=== PATIENT | male | born 1965 | race Caucasian/White ===

== ENCOUNTER → 2016-11-07 | Outpatient (CLI) | payer OTHER ==
[2016-11-07 08:51] LABS: ABSOLUTE EOSINOPHILS # (AUTO) 0.1 10^3/uL (0.0-0.6); ABSOLUTE LYMPHOCYTES (AUTO) 1.8 10^3/uL (0.5-4.7); ABSOLUTE MONOCYTES (AUTO) 0.5 10^3/uL (0.1-1.4); ABSOLUTE NEUT (AUTO) 4.1 10^3/uL (1.7-8.2); BASOPHILS % (AUTO) 0.7 % (0-2); HEMATOCRIT 44.7 % (37.9-51.0); HEMOGLOBIN 15.5 g/dL (13.5-17.0); HGB HCT DIFFERENCE 1.8; LYMPHOCYTES % (AUTO) 26.9 % (13-45); MEAN CORPUSCULAR HEMOGLOBIN 35.2 pg (27.0-33.4); MEAN CORPUSCULAR HGB CONC 34.6 g/dL (32.0-36.0); MEAN CORPUSCULAR VOLUME 102 fl (80-97); MONOCYTES % (AUTO) 7.6 % (3-13); RED CELL DISTRIBUTION WIDTH 12.8 % (11.5-14.0); SEGMENTED NEUTROPHILS % (AUTO) 62.8 % (42-78); WHITE BLOOD COUNT 6.5 10^3/uL (4.0-10.5)
[2016-11-07 09:15] LABS: ALANINE AMINOTRANSFERASE 127 U/L (21-72); ALBUMIN 4.5 g/dL (3.5-5.0); ALKALINE PHOSPHATASE 97 U/L (38-126); ANION GAP 15 (5-19); ASPARTATE AMINO TRANSFERASE 297 U/L (17-59); BILIRUBIN,DIRECT 0.2 mg/dL (0.0-0.4); BILIRUBIN,TOTAL 0.8 mg/dL (0.2-1.3); BLOOD UREA NITROGEN 9 mg/dL (7-20); CALCIUM 10.1 mg/dL (8.4-10.2); CARBON DIOXIDE 29 mmol/L (22-30); CHLORIDE 106 mmol/L (98-107); CHOLESTEROL 161.03 mg/dL (0-200); CREATININE RESULT 0.74 mg/dL (0.52-1.25); Direct HDL 77 mg/dL (>40); GLUCOSE 97 mg/dL (75-110); POTASSIUM 3.8 mmol/L (3.6-5.0); TOTAL PROTEIN 7.4 g/dL (6.3-8.2); TRIGLYCERIDES 101 mg/dL (<150)
[2016-11-07 09:26] LABS: DIRECT LDL 59 mg/dL (<100)
== END ==
LOC: CCC 07:30
DX: K85.90 Acute pancreatitis without necrosis or infection, unspecified (principal); M21.941 Unspecified acquired deformity of hand, right hand; M54.10 Radiculopathy, site unspecified
CPT/HCPCS: 36415; 80053; 80061; 80074; 83036; 84425; 85025

== ENCOUNTER → 2017-02-06 | Outpatient (CLI) | payer OTHER ==
--- NOTE | 2017-02-06 13:58 | RADIOLOGY REPORT (SQ) ---
EXAM DESCRIPTION: NM LIVER/SPLEEN SCAN COMPLETED DATE/TIME: 02/06/2017 11:29 am REASON FOR STUDY: FATTY CHANGE OF LIVER K76.0 FATTY (CHANGE OF) LIVER, NOT ELSEWHERE CLASSIFIED COMPARISON: None. RADIONUCLIDE AND DOSE: 5.39 millicuries Tc-99m Sulfur Colloid. The route of agent administration: Intravenous ADDITIONAL DRUGS AND DOSES: None. TECHNIQUE: Images of the upper abdomen acquired in multiple projections following radionuclide admin istration. LIMITATIONS: None. FINDINGS: Liver: Normal size. Homogeneous activity. No focal lesions. Spleen: Normal size. Homogeneous activity. No focal lesions. Other: No other significant findings. IMPRESSION: NORMAL LIVER SPLEEN SCAN. TECHNICAL DOCUMENTATION: JOB ID: [id number] [employer]- All Rights Reserved
== END ==
LOC: RAD 09:35
DX: K76.0 Fatty (change of) liver, not elsewhere classified (principal)
CPT/HCPCS: 78215; A9541

== ENCOUNTER 2017-09-30 07:56 | Emergency (ER) | payer OTHER ==
[2017-09-30] MEDS ORDERED: NORMAL SALINE 1000 ML 1,000 ML IV PRN (08:15)
[2017-09-30] MEDS ORDERED: ONDANSETRON HCL INJ/PF 4 MG/2 ML SDV IV ONE (08:15)
--- NOTE | 2017-09-30 08:18 | ER Document Report ---
ED GI/ - General Chief Complaint: Nausea/Vomiting Stated Complaint: VOMITING Time Seen by Provider: 09/30/17 08:12 Notes: The patient is a 52-year-old male, past medical history prior episode of alcoholic pancreatitis, presents with nausea, vomiting and upper abdominal pain for the past 4 days. He says that the pain is worse after he drinks alcohol. He is able to drink small sips of water, but will frequently vomit any food. He denies fevers, chest pain, shortness of breath, diarrhea, constipation or urinary symptoms. TRAVEL OUTSIDE OF THE [place] IN LAST 30 DAYS: No - Related Data Allergies/Adverse Reactions: No Known Allergies Allergy (Verified 09/30/17 08:00) Past Medical History - General Information source: Patient - Social History Smoking Status: Current Every Day Smoker Frequency of alcohol use: Heavy Family History: Reviewed & Not Pertinent, Arthritis - Immunizations Hx Diphtheria, Pertussis, Tetanus Vaccination: No Review of Systems - Review of Systems Notes: REVIEW OF SYSTEMS: CONSTITUTIONAL: -fevers, -chills EENT: -eye pain, -difficulty swallowing, -nasal congestion CARDIOVASCULAR: -chest pain, -syncope. RESPIRATORY: -cough, -SOB GASTROINTESTINAL: +upper abdominal pain, +nausea, +vomiting, -diarrhea GENITOURINARY: -dysuria, -hematuria MUSCULOSKELETAL: -back pain, -neck pain SKIN: -rash or skin lesions. HEMATOLOGIC: -easy bruising or bleeding. LYMPHATIC: -swollen, enlarged glands. NEUROLOGICAL: -altered mental status or loss of consciousness, -headache, - neurologic symptoms PSYCHIATRIC: -anxiety, -depression. ALL OTHER SYSTEMS REVIEWED AND NEGATIVE. Physical Exam - Vital signs Vitals: Temp Pulse Resp BP Pulse Ox 98.4 F 119 H 20 140/106 H 100 09/30/17 08:00 09/30/17 08:00 09/30/17 08:00 09/30/17 08:00 09/30/17 08:00 - Notes Notes: PHYSICAL EXAMINATION: GENERAL: Well-appearing, well-nourished and in no acute distress. HEAD: Atraumatic, normocephalic. EYES: Pupils equal round and reactive to light, extraocular movements intact, sclera anicteric, conjunctiva are normal. ENT: nares patent, oropharynx clear without exudates. Moist mucous membranes. NECK: Normal range of motion, supple without lymphadenopathy LUNGS: Breath sounds clear to auscultation bilaterally and equal. No wheezes rales or rhonchi. HEART: Tachycardia, regular rhythm ABDOMEN: Soft, mild RUQ and epigastric tenderness, normoactive bowel sounds. No guarding, no rebound. No masses appreciated. EXTREMITIES: Normal range of motion, no pitting or edema. No cyanosis. NEUROLOGICAL: Cranial nerves grossly intact. Normal speech, normal gait. Normal sensory and motor exams. PSYCH: Normal mood, normal affect. SKIN: Warm, Dry, normal turgor, no rashes or lesions noted. Course - Re-evaluation Re-evalutation: Concern for pancreatitis again with nausea, vomiting and epigastric abdominal pain. Since he is having right upper quadrant abdominal tenderness, will check an ultrasound of the liver and gallbladder. Suspect that his pancreatitis is once again related to his alcohol use and counseled him on trying to cut down. 09/30/17 10:18 Pt feels much better and able to tolerate fluids without any abdominal pain, nausea or vomiting. Blood work is remarkable for his elevated LFTs, consistent with his known alcohol and fatty liver. Lipase levels not consistent with pancreatitis. Right upper quadrant ultrasound does not show any evidence of gallstones or cholecystitis. Will send patient home with Carlos Morel and instructions to follow-up with his GI doctor. He will stay hydrated and return to the ER if he has any worsening symptoms. - Vital Signs Vital signs: Temp Pulse Resp BP Pulse Ox 98.4 F 119 H 20 140/106 H 100 09/30/17 08:00 09/30/17 08:00 09/30/17 08:00 09/30/17 08:00 09/30/17 08:00 - Laboratory Result Diagrams: 09/30/17 09:04 09/30/17 09:04 Laboratory results interpreted by me: 09/30/17 09/30/17 09:04 09:04 Hgb 17.1 H MCV 103 H MCH 35.9 H Lymphocytes % 12.4 L Potassium 3.4 L Chloride 94 L Carbon Dioxide 33 H Total Bilirubin 2.0 H Direct Bilirubin 0.8 H AST 118 H ALT 84 H Alkaline Phosphatase 173 H Creatine Kinase 29 L Lipase 307.2 H - Diagnostic Test Radiology reviewed: Image reviewed, Reports reviewed Radiology results interpreted by : RAMON US: NAD Discharge - Discharge Clinical Impression: Upper abdominal pain Nausea and vomiting Qualifiers: Vomiting type: unspecified Vomiting Intractability: non-intractable Qualified Code(s): R11.2 - Nausea with vomiting, unspecified Condition: Stable Disposition: HOME, SELF-CARE Additional Instructions: ABDOMINAL PAIN: There are many causes of abdominal pain. Pain can mean a serious problem requiring surgery (such as appendicitis). It can also be an innocent problem that goes away on its own (such as a viral infection). Often, time must pass to determine the cause of pain. The physician does not feel that hospitalization is necessary, at present. Things may change within the next 24 hours. Call the doctor or come back for re- examination if any problems occur, such as: (1) Pain that becomes more severe, steady, or becomes concentrated in one specific area. Also, pain that is more severe with movement or coughing. (2) Vomiting that persists or becomes more frequent. (3) Blood in the vomitus, urine, or bowel movements. Blood in the stool may have a tarry or black appearance. (4) Shaking chills or fever greater than 100 degrees F. (5) The abdomen becomes more distended or swollen. (6) Bowel movements cease. (7) Failure to improve as expected. NORMAL EXAM AND WORKUP: At this time, your examination and workup show no significant abnormality. No significant abnormal physical findings are noted. All laboratory, EKG, and imaging (x-ray, CT scans, ultrasound) studies that were ordered show no significant abnormality. Although your examination and all studies that were ordered showed no significant abnormal finding, there are no examinations and no studies that are 100% accurate. There is always the possibility that some abnormality could exist and not be detected with physical examination or within the limits and capabilities of laboratory and other studies. You should return or follow up as you were instructed on your visit today for further evaluation if your symptoms do not resolve. ANTINAUSEA MEDICATION: You have been given a medication to suppress nausea and vomiting. This type of medication can be given as a shot, pill, or suppository. It will usually last for many hours. Pills and shots usually last six to eight hours, suppositories last about 12 hours. For the typical illness, only one or two doses of the medication may be necessary. Mild lightheadedness may occur. This type of medicine can cause drowsiness. Do not drive or operate dangerous machinery while under its influence. Do not mix with alcohol. See your doctor at once if you have muscle spasms or tightness, or uncontrollable motions (particularly of the neck, mouth, or jaw). Persistent vomiting or severe lightheadedness should also be evaluated by the physician. FOLLOW-UP CARE: If you have been referred to a physician for follow-up care, call the physician s office for an appointment as you were instructed or within the next two days. If you experience worsening or a significant change in your symptoms, notify the physician immediately or return to the Emergency Department at any time for re-evaluation. Prescriptions: Omeprazole Magnesium [Prilosec Otc] 20 mg PO Q12H #14 tablet. Ondansetron [Zofran Odt 4 mg Tablet] 1 - 2 tab PO Q4H PRN #15 tab.rapdis PRN Reason: For Nausea/Vomiting Forms: Elevated Blood Pressure Referrals: MANNY AUGUSTE MD [ACTIVE STAFF] - Follow up as needed
[2017-09-30] MEDS ORDERED: KETOROLAC TROMETHAMINE INJ/PF 30 MG/1 ML SDV IV ONE (08:27)
[2017-09-30] MEDS ORDERED: HYDROMORPHONE HCL INJ/PF 2 MG/ML AMPULE IV ONE (08:27)
[2017-09-30] MEDS ORDERED: PANTOPRAZOLE SODIUM 40 MG VIAL IV ONE (08:27)
[2017-09-30] MEDS ORDERED: MORPHINE SULFATE 10 MG/ML INJ IV ONE (09:18)
[2017-09-30 09:33] LABS: ABSOLUTE EOSINOPHILS # (AUTO) 0.1 10^3/uL (0.0-0.6); ABSOLUTE LYMPHOCYTES (AUTO) 1.1 10^3/uL (0.5-4.7); ABSOLUTE NEUT (AUTO) 6.7 10^3/uL (1.7-8.2); BASOPHILS % (AUTO) 0.4 % (0-2); EOSINOPHILS % (AUTO) 1.4 % (0-6); HEMATOCRIT 48.8 % (37.9-51.0); HEMOGLOBIN 17.1 g/dL (13.5-17.0); LYMPHOCYTES % (AUTO) 12.4 % (13-45); MEAN CORPUSCULAR HEMOGLOBIN 35.9 pg (27.0-33.4); MEAN CORPUSCULAR VOLUME 103 fl (80-97); MONOCYTES % (AUTO) 11.3 % (3-13); RED BLOOD COUNT 4.76 10^6/uL (4.35-5.55); RED CELL DISTRIBUTION WIDTH 13.2 % (11.5-14.0); SEGMENTED NEUTROPHILS % (AUTO) 74.5 % (42-78); TOTAL CELLS COUNTED % (AUTO) 100 %
[2017-09-30 09:53] LABS: PLATELET COUNT 160 10^3/uL (150-450)
[2017-09-30 09:58] LABS: ALANINE AMINOTRANSFERASE 84 U/L (21-72); ALBUMIN 3.9 g/dL (3.5-5.0); ALKALINE PHOSPHATASE 173 U/L (38-126); ANION GAP 10 (5-19); ASPARTATE AMINO TRANSFERASE 118 U/L (17-59); BILIRUBIN,DIRECT 0.8 mg/dL (0.0-0.4); BLOOD UREA NITROGEN 12 mg/dL (7-20); CARBON DIOXIDE 33 mmol/L (22-30); CHLORIDE 94 mmol/L (98-107); CREATINE KINASE 29 U/L (55-170); GLUCOSE 100 mg/dL (75-110); LIPASE 307.2 U/L (23-300); POTASSIUM 3.4 mmol/L (3.6-5.0); SODIUM 137.4 mmol/L (137-145); TOTAL PROTEIN 7.3 g/dL (6.3-8.2)
[2017-09-30 10:03] LABS: ALCOHOL < 10 mg/dL (NONE DETECTED)
--- NOTE | 2017-09-30 10:06 | RADIOLOGY REPORT (SQ) ---
EXAM DESCRIPTION: U/S ABDOMEN LIMITED W/O DOP COMPLETED DATE/TIME: 09/30/2017 9:51 am REASON FOR STUDY: RUQ tenderness, N/V COMPARISON: None. TECHNIQUE: Dynamic and static grayscale images acquired of the right upper quadrant and recorded on PACS. Additional selected color Doppler and spectral images recorded. LIMITATIONS: Study limited due to acoustical interference from fat or from air in the bowel. FINDINGS: PANCREAS: Parts or all of the pancreas poorly seen secondary to acoustical interference fr om fat or from air in the bowel. LIVER: Echotexture is coarse with increased echogenicity consistent with fatty infiltration. No mass es. LIVER VASCULATURE: Normal directional flow of the main portal vein and hepatic veins. GALLBLADDER: No stones. Normal wall thickness. No pericholecystic fluid. ULTRASOUND-DETECTED GALDAMEZ'S SIGN: Negative. INTRAHEPATIC DUCTS AND COMMON DUCT: CBD and intrahepatic ducts normal caliber. No filling defects. INFERIOR VENA CAVA: Normal flow. AORTA: No aneurysm. RIGHT KIDNEY: Normal size. Normal echogenicity. No solid or suspicious masses. No hydronephros is. No calcifications. PERITONEAL CAVITY AND RIGHT PLEURAL SPACE: No ascites or effusions. OTHER: No other significant finding. IMPRESSION: FATTY LIVER. PANCREAS PARTIALLY OR COMPLETELY OBSCURED. OTHERWISE NORMAL RIGHT UPPER LEIF DRANT ULTRASOUND. TECHNICAL DOCUMENTATION: JOB ID: [id number] [employer]- All Rights Reserved Reading location - IP/workstation name: [email or web address]
[2017-09-30 10:58] VITALS: BP 127/94
== END 2017-09-30 10:59 | disposition home or self-care (01) ==
LOC: ER 07:56
DX: R10.10 Upper abdominal pain, unspecified (principal); R11.2 Nausea with vomiting, unspecified; F17.200 Nicotine dependence, unspecified, uncomplicated; K70.0 Alcoholic fatty liver; R74.8 Abnormal levels of other serum enzymes
CPT/HCPCS: 99284; 96361; 96374; 96375; 36415; 80307; 82550; 83690; 85025; 80053; 76705; J1885; J2270; S0164; J2405; J7030

== ENCOUNTER 2020-04-22 10:31 | Emergency (ER) | payer SELFPAY ==
--- NOTE | 2020-04-22 12:27 | ER Document Report ---
ED GI/ - General Chief Complaint: Nausea/Vomiting/Diarrhea Stated Complaint: DIARRHEA,VOMITING,FEVER Time Seen by Provider: 04/22/20 12:04 Notes: CHIEF COMPLAINT: Nausea vomiting abdominal discomfort cough chills HPI: 55-year-old male who does drink alcohol I believe daily although he denies this presenting for nausea vomiting with multiple episodes of diarrhea over the last week. Patient reports some generalized abdominal discomfort more focal in the epigastric region. States he has had cough and chills as well. Mild shortness of breath no chest pain. Patient does report darkening of his urine over the last week as well. ROS: See HPI - all other systems were reviewed and are otherwise negative Constitutional: no fever Eyes: no drainage, no blurred vision ENT: no runny nose, no sore throat Cardiovascular: no chest pain Resp: + SOB, + cough GI: + vomiting, + diarrhea, + abdominal pain : no dysuria Integumentary: no rash Allergy: no hives Musculoskeletal: no extremity pain or swelling Neurological: no numbness/tingling, no weakness MEDICATIONS: I agree with the patient medications as charted by the RN. ALLERGIES: I agree with the allergies as charted by the RN. PAST MEDICAL HISTORY/PAST SURGICAL HISTORY: Reviewed and agree as charted by RN. SOCIAL HISTORY: Reviewed and agree as charted by RN. FAMILY HISTORY: No significant familial comorbid conditions directly related to patient complaint EXAM: Reviewed vital signs as charted by RN. CONSTITUTIONAL: Alert and oriented and responds appropriately to questions. Well-appearing; well-nourished HEAD: Normocephalic; atraumatic EYES: PERRL; Conjunctivae clear, sclerae icteric ENT: normal nose; no rhinorrhea; moist mucous membranes; pharynx without lesions noted, no uvula edema or deviation, no tonsillar hypertrophy, phonation normal NECK: Supple without meningismus; non-tender; no cervical lymphadenopathy, no masses CARD: Mild tachycardia; no murmurs, no clicks, no rubs, no gallops; symmetric distal pulses RESP: Normal chest excursion without splinting or tachypnea; breath sounds noted to have scattered rhonchi bilateral lower lobes, pulse oximetry 96% on room air not hypoxic ABD/GI: Normal bowel sounds; mildly distended; soft, mild generalized tenderness to the epigastric region, no rebound, no guarding; patient with an enlarged liver significantly below the rib cage to the level of the umbilicus palpable at the edge. Ascites is palpable BACK: The back appears normal and is non-tender to palpation, there is no CVA tenderness EXT: Normal ROM in all joints; non-tender to palpation; no cyanosis, no effusions, no edema SKIN: Normal color for age and race; warm; dry; good turgor; spider angiomas over the anterior chest NEURO: Moves all extremities equally; Motor and sensory function intact PSYCH: The patient's mood and manner are appropriate. Grooming and personal hygiene are appropriate. MDM: 55-year-old male with nausea vomiting diarrhea over the last week some shortness of breath and chills. Patient has a significantly enlarged liver, he does tell me that he drinks socially although I suspect he drinks daily. His sclera are icteric. He reports tea colored urine. I suspect he is in some degree of liver failure. Will obtain screening labs and imaging studies to further evaluate TRAVEL OUTSIDE OF THE [place] IN LAST 30 DAYS: No - Related Data Allergies/Adverse Reactions: No Known Allergies Allergy (Verified 04/22/20 12:23) Past Medical History - Social History Smoking Status: Unknown if Ever Smoked Family History: Reviewed & Not Pertinent, Arthritis Renal/ Medical History: Denies: Hx Peritoneal Dialysis - Immunizations Hx Diphtheria, Pertussis, Tetanus Vaccination: No Physical Exam - Vital signs Vitals: Temp Pulse Resp BP Pulse Ox 98.4 F 115 H 18 120/71 98 04/22/20 10:41 04/22/20 10:41 04/22/20 10:41 04/22/20 10:41 04/22/20 10:41 Course - Re-evaluation Re-evalutation: 04/22/20 13:13 EKG shows a sinus tachycardia with a ventricular rate of 112. There are some mild flattening of the T waves in the inferior leads although quality of the EKG is not very good as there is some artifact. RI 137 QT 252 QTC 344. Interpreted by emergency department physician. Borderline EKG. 04/22/20 14:22 Patient is noted to have a high ammonia level of 96.6. Will give lactulose orally. 04/22/20 16:[address] imaging suggests liver cancer. Also hyponatremic hypokalemic with elevated ammonia level. Discussed with Dr. Gutierrez, hematology, requests that we order an alpha-fetoprotein marker, will discuss with hospitalist for admission 04/22/20 16:[address] Roberts, Hospitalist. reviewed labs, CT, case, discussion with Oncology. He requests that I speak with ALICIA Ivan about the patient for an opinion prior to admitting the patient here. 04/22/20 17:[address] Roberts, he is spoken with Dr. Gutierrez does not need consultation with Dr. Ortiz. Requested call Dr. Whitley for admission 04/22/20 17:[address] Whitley, case discussed, CT/Labs reviewed, admit inpatient telemetry - Vital Signs Vital signs: Temp Pulse Resp BP Pulse Ox 98.3 F 110 H 15 125/71 94 04/22/20 14:12 04/22/20 14:12 04/22/20 15:12 04/22/20 15:12 04/22/20 15:12 - Laboratory Result Diagrams: 04/22/20 13:33 04/22/20 13:33 Laboratory results interpreted by me: 04/22/20 04/22/20 04/22/20 13:33 13:33 13:33 WBC 12.4 H RBC 2.83 L Hgb 10.7 L Hct 28.9 L MCV 102 H MCH 37.6 H MCHC 36.9 H RDW 15.4 H Plt Count 80 L Lymph % (Auto) 5.5 L Absolute Neuts (auto) 10.8 H Seg Neutrophils % 86.5 H PT 17.7 H Sodium 119.2 L* Potassium 2.9 L* Chloride 78 L Creatinine 0.48 L Glucose 154 H Calcium 8.2 L Total Bilirubin 10.3 H Direct Bilirubin 8.1 H AST 323 H ALT 71 H Alkaline Phosphatase 323 H Ammonia NT-Pro-B Natriuret Pep Albumin 3.0 L Urine Protein Urine Blood Urine Bilirubin Urine Urobilinogen 04/22/20 04/22/20 04/22/20 13:33 13:33 13:33 WBC RBC Hgb Hct MCV MCH MCHC RDW Plt Count Lymph % (Auto) Absolute Neuts (auto) Seg Neutrophils % PT Sodium Potassium Chloride Creatinine Glucose Calcium Total Bilirubin Direct Bilirubin AST ALT Alkaline Phosphatase Ammonia 96.6 H NT-Pro-B Natriuret Pep 128 H Albumin Urine Protein 30 H Urine Blood MODERATE H Urine Bilirubin MODERATE H Urine Urobilinogen 4.0 H Discharge - Discharge Clinical Impression: Hyponatremia, Hypokalemia, Increased ammonia level, Liver mass Condition: Fair Disposition: ADMITTED INPATIENT Admitting Provider: Angi (Hospitalist) Unit Admitted: Telemetry
--- NOTE | 2020-04-22 13:42 | RADIOLOGY REPORT (SQ) ---
EXAM DESCRIPTION: CHEST SINGLE VIEW IMAGES COMPLETED DATE/TIME: 04/22/2020 1:22 pm REASON FOR STUDY: sob COMPARISON: 2016 EXAM PARAMETERS: NUMBER OF VIEWS: One view. TECHNIQUE: Single frontal radiographic view of the chest acquired. RADIATION DOSE: NA LIMITATIONS: None. FINDINGS: LUNGS AND PLEURA: No opacities, masses or pneumothorax. No pleural effusion. MEDIASTINUM AND HILAR STRUCTURES: No masses. Contour normal. HEART AND VASCULAR STRUCTURES: Heart normal in size. Normal vasculature. BONES: No acute findings. HARDWARE: None in the chest. OTHER: No other significant finding. IMPRESSION: NO ACUTE RADIOGRAPHIC FINDING IN THE CHEST. TECHNICAL DOCUMENTATION: JOB ID: [id number] 2010 [employer]- All Rights Reserved Reading location - IP/workstation name: [email or web address]
[2020-04-22 13:52] LABS: ABSOLUTE LYMPHOCYTES (AUTO) 0.7 10^3/uL (0.5-4.7); ABSOLUTE NEUT (AUTO) 10.8 10^3/uL (1.7-8.2); BASOPHILS % (AUTO) 0.1 % (0-2); EOSINOPHILS % (AUTO) 0.1 % (0-6); HEMATOCRIT 28.9 % (37.9-51.0); HEMOGLOBIN 10.7 g/dL (13.5-17.0); LYMPHOCYTES % (AUTO) 5.5 % (13-45); MEAN CORPUSCULAR HEMOGLOBIN 37.6 pg (27.0-33.4); MEAN CORPUSCULAR HGB CONC 36.9 g/dL (32.0-36.0); MEAN CORPUSCULAR VOLUME 102 fl (80-97); MONOCYTES % (AUTO) 7.8 % (3-13); RED BLOOD COUNT 2.83 10^6/uL (4.35-5.55); RED CELL DISTRIBUTION WIDTH 15.4 % (11.5-14.0); SEGMENTED NEUTROPHILS % (AUTO) 86.5 % (42-78); TOTAL CELLS COUNTED % (AUTO) 100 %; WHITE BLOOD COUNT 12.4 10^3/uL (4.0-10.5)
[2020-04-22 13:53] LABS: APPEARANCE,URINE CLEAR; BILIRUBIN,URINE MODERATE (NEGATIVE); COLOR,URINE AMBER; GLUCOSE, URINE NEGATIVE (NEGATIVE); KETONES,URINE NEGATIVE (NEGATIVE); LEUKOCYTE ESTERASE,URINE NEGATIVE (NEGATIVE); NITRITE,URINE NEGATIVE (NEGATIVE); PROTEIN,URINE 30 mg/dL (NEGATIVE); URINE SPECIFIC GRAVITY 1.017
[2020-04-22 13:56] LABS: INTERNATIONAL RATION (INR) 1.44; PROTHROMBIN TIME 17.7 SEC (11.4-15.4)
[2020-04-22 14:13] LABS: ALKALINE PHOSPHATASE 323 U/L (38-126); ASPARTATE AMINO TRANSFERASE 323 U/L (17-59); BILIRUBIN,DIRECT 8.1 mg/dL (0.0-0.4); BILIRUBIN,TOTAL 10.3 mg/dL (0.2-1.3); BLOOD UREA NITROGEN 7 mg/dL (7-20); CALCIUM 8.2 mg/dL (8.4-10.2); CARBON DIOXIDE 25 mmol/L (22-30); CHLORIDE 78 mmol/L (98-107); CREATINE KINASE 69 U/L (55-170); GLUCOSE 154 mg/dL (75-110); TOTAL PROTEIN 6.5 g/dL (6.3-8.2)
[2020-04-22 14:14] LABS: ANION GAP 16 (5-19)
[2020-04-22] MEDS ORDERED: LACTULOSE SYRUP 20 GM/30 ML UDCUP PO ONE (14:22)
[2020-04-22 14:24] LABS: NT PRO BNP 128 pg/mL (<125); PLATELET COUNT 80 10^3/uL (150-450)
[2020-04-22 14:25] LABS: TROPONIN I < 0.012 ng/mL
[2020-04-22 14:27] LABS: POTASSIUM 2.9 mmol/L (3.6-5.0)
[2020-04-22] MEDS ORDERED: POTASSIUM CHLORIDE 10 MEQ TABLET.ER PO ONE (14:27)
[2020-04-22] MEDS ORDERED: POTASSI CL 20 MEQ/50 ML RIDER 20 MEQ/50 ML RTUPB IV ONE (14:27)
[2020-04-22] MEDS ORDERED: NORMAL SALINE 1000 ML 1,000 ML IV ONE (14:28)
[2020-04-22 14:58] LABS: ALCOHOL 109 mg/dL (NONE DETECTED)
--- NOTE | 2020-04-22 15:17 | EKG REPORT ---
SEVERITY:- BORDERLINE ECG - SINUS TACHYCARDIA BORDERLINE T ABNORMALITIES, INFERIOR LEADS : Confirmed by: Jazmin Quesada MD 22-Apr-2020 15:17:05
--- NOTE | 2020-04-22 16:18 | RADIOLOGY REPORT (SQ) ---
EXAM DESCRIPTION: CT ABD/PELVIS WITH IV ONLY IMAGES COMPLETED DATE/TIME: 04/22/2020 3:32 pm REASON FOR STUDY: abd pain, poss liver failure COMPARISON: None. TECHNIQUE: CT scan of the abdomen and pelvis performed using helical scanning technique with dynamic intravenous contrast injection. No oral contrast. Images reviewed with lung, soft tissue, and bone windows. Reconstructed coronal and sagittal MPR images reviewed. Delayed images for evaluation of the urinary system also acquired. All images stored on PACS. All CT scanners at this facility use dose modulation, iterative reconstruction, and/or weight based d osing when appropriate to reduce radiation dose to as low as reasonably achievable (ALARA). [facility]: Dose Right [facility]: CareDose [facility]: Dose Right [facility]: Teradose 4D [facility]: OneSource Water CONTRAST TYPE AND DOSE: contrast/concentration: Isovue 350.00 mmol/ml; Total Contrast Delivered: 73. 0 ml; Total Saline Delivered: 65.9 ml RENAL FUNCTION: BUN 7 creatinine 0.48 RADIATION DOSE: CT Rad equipment meets quality standard of care and radiation dose reduction techniq ues were employed. CTDIvol: 7.7 - 10.2 mGy. DLP: 981 mGy-cm.. LIMITATIONS: None. FINDINGS: LOWER CHEST: No significant findings. No nodules or infiltrates. LIVER: The liver is markedly heterogeneous with large confluent masses. SPLEEN: Normal size. No focal lesions. PANCREAS: No masses. No significant calcifications. No adjacent inflammation or peripancreatic fluid collections. Pancreatic duct not dilated. GALLBLADDER: No identified stones by CT criteria. No inflammatory changes to suggest cholecystitis. ADRENAL GLANDS: No significant masses or asymmetry. RIGHT KIDNEY AND URETER: No solid masses. No significant calcifications. No hydronephrosis or hyd roureter. LEFT KIDNEY AND URETER: No solid masses. No significant calcifications. No hydronephrosis or hydr oureter. AORTA AND VESSELS: No aneurysm. No dissection. Renal arteries, SMA, celiac without stenosis. RETROPERITONEUM: No retroperitoneal adenopathy, hemorrhage or masses. BOWEL AND PERITONEAL CAVITY: There is moderate ascites. There are scattered descending and sigmoid d iverticula with no associated inflammation. No obvious bowel mass. APPENDIX: Not identified. PELVIS: Free fluid in the pelvis. Urinary bladder is normal. No pelvic mass. ABDOMINAL WALL: No masses. No hernias. BONES: No significant or acute findings. OTHER: No other significant finding. IMPRESSION: 1. There are large confluent masses in the liver, metastatic disease versus hepatocellu lar neoplasm. 2. Ascites. 3. Diverticulosis coli. TECHNICAL DOCUMENTATION: JOB ID: [id number] Quality ID # [id number]: Final reports with documentation of one or more dose reduction techniques (e.g., Au tomated exposure control, adjustment of the mA and/or kV according to patient size, use of iterative reconstruction technique) 2010 [employer]- All Rights Reserved Reading location - IP/workstation name: [email or web address]
--- NOTE | 2020-04-22 18:31 | Progress Note ---
Provider Note Provider Note: Asked to see patient by Jose Beckett. Agreed patient would benefit from hospitalization to treat multiple electrolyte abnormalities and to pursue further work up of imaging findings which are concerning for metastatic HCC. Unfortunately, patient has declined admission at this time. I recommended to patient that he at least stay overnight to be able to speak with SW regarding establishing Medicaid but he is adamant that he will not stay. He has no PCP or health insurance. We discussed that he could receive care at local free clinics or contact the health department, and I encouraged him to speak with a SW regarding Medicaid/disability. Discussed with ED provider, Jose Beckett.
[2020-04-22 19:07] VITALS: BP 137/82
== END 2020-04-22 19:18 | disposition left against medical advice (07) ==
LOC: ER 10:31 → EH 17:31 → UNDOADMIN 17:31 → UNDODISIN 19:18
DX: E87.1 Hypo-osmolality and hyponatremia (principal); E87.6 Hypokalemia; R16.0 Hepatomegaly, not elsewhere classified; R79.89 Other specified abnormal findings of blood chemistry; R06.02 Shortness of breath; R11.10 Vomiting, unspecified; R19.7 Diarrhea, unspecified; R05 Cough
CPT/HCPCS: 93005; 99285; 96361; 96365; 96366; 36415; 80307; 82140; 82550; 83690; 83735; 85025; 85610; 80053; 81001; 84484; 82105; 83880; 71045; 74177; 93010; J3480; J7030

== ENCOUNTER 2020-04-24 07:12 | Observation (INO) | payer SELFPAY ==
[2020-04-24] MEDS ORDERED: NORMAL SALINE 1000 ML 1,000 ML IV ONE (08:29)
[2020-04-24] MEDS ORDERED: FAMOTIDINE INJ/PF 20 MG/2 ML SDV IV ONE (08:30)
[2020-04-24] MEDS ORDERED: ONDANSETRON HCL INJ/PF 4 MG/2 ML SDV IV ONE (08:30)
--- NOTE | 2020-04-24 08:32 | ER Document Report ---
ED GI/ - General Chief Complaint: Abdominal Pain Stated Complaint: ABDOMINAL PAIN Time Seen by Provider: 04/24/20 08:16 Notes: Patient is a 55-year-old male presents emergency department with a chief complaint of abdominal pain. Patient reports he was seen here 2 days ago and diagnosed with multiple masses on his liver. He states that they wanted to admit him at the time but he wanted to go home and speak with his family. Patient reports over the past 2 days since being home he has not had any vomiting or diarrhea. Denies fever. States he is having some discomfort in the epigastric area and described as a burning sensation. Patient reports last time he drank alcohol was prior to arriving to the emergency department on April 22. Patient reports he has been drinking since he was a teenager and typically drinks about 10-15 beers per day. Patient denies recreational drug use or IV drug use. TRAVEL OUTSIDE OF THE [place] IN LAST 30 DAYS: No - Related Data Allergies/Adverse Reactions: No Known Allergies Allergy (Verified 04/22/20 12:23) Past Medical History - General Information source: Patient - Social History Smoking Status: Current Every Day Smoker Frequency of alcohol use: Heavy Drug Abuse: None Lives with: Family Family History: Reviewed & Not Pertinent, Arthritis - Past Medical History Cardiac Medical History: Reports: None Pulmonary Medical History: Reports: None EENT Medical History: Reports: None Neurological Medical History: Reports: None Endocrine Medical History: Reports: None Renal/ Medical History: Reports: None. Denies: Hx Peritoneal Dialysis Malignancy Medical History: Reports None GI Medical History: Reports: None Musculoskeletal Medical History: Reports None Skin Medical History: Reports None Psychiatric Medical History: Reports: None Traumatic Medical History: Reports: None Infectious Medical History: Reports: None Surgical Hx: Negative - Immunizations Hx Diphtheria, Pertussis, Tetanus Vaccination: No Review of Systems - Review of Systems Constitutional: No symptoms reported EENT: No symptoms reported Cardiovascular: No symptoms reported Respiratory: No symptoms reported Gastrointestinal: No symptoms reported Genitourinary: No symptoms reported Male Genitourinary: No symptoms reported Musculoskeletal: No symptoms reported Skin: No symptoms reported Hematologic/Lymphatic: No symptoms reported Neurological/Psychological: No symptoms reported Physical Exam - Vital signs Vitals: Temp Pulse Resp BP Pulse Ox 98.7 F 121 H 18 142/74 H 99 04/24/20 07:26 04/24/20 07:26 04/24/20 07:26 04/24/20 07:26 04/24/20 07:26 Interpretation: Tachycardic - Notes Notes: GENERAL: Well-appearing, well-nourished and in no acute distress. HEAD: Atraumatic, normocephalic. EYES: Pupils equal round and reactive to light, extraocular movements intact, sclera anicteric, conjunctiva are normal. ENT: Nares patent, oropharynx clear without exudates. Moist mucous membranes. NECK: Normal range of motion, supple without lymphadenopathy or JVD. LUNGS: Breath sounds clear to auscultation bilaterally and equal. No wheezes rales or rhonchi. HEART: Regular rate and rhythm without murmurs, rubs or gallops. ABDOMEN: Firm, round, slight tenderness to epigastric region, able to palpate firm liver in RUQ. BACK: No cervical, thoracic, lumbar midline tenderness. No saddle anesthesia, normal distal neurovascular exam. GENITOURINARY: Deferred. EXTREMITIES: Normal range of motion, no pitting or edema. No clubbing or cyanosis. NEUROLOGICAL: Cranial nerves II through XII grossly intact. Normal speech, normal gait. PSYCH: Normal mood, normal affect. SKIN: Warm, Dry, normal turgor, no rashes or lesions noted. Course - Re-evaluation Re-evalutation: 04/24/20 08:34 We will obtain basic labs, give IV fluids as the patient is tachycardic with a heart rate of 121. Also give patient an acid due to epigastric discomfort. Patient is in no acute distress at this time. 04/24/20 12:05 I did speak with Dr. Angi edwards come to the emergency department to evaluate the patient. She will admit. - Vital Signs Vital signs: Temp Pulse Resp BP Pulse Ox 98.7 F 121 H 18 142/74 H 99 04/24/20 07:26 04/24/20 07:26 04/24/20 07:26 04/24/20 07:26 04/24/20 07:26 - Laboratory Result Diagrams: 04/24/20 10:35 04/24/20 09:21 Laboratory results interpreted by me: 04/24/20 04/24/20 04/24/20 09:21 09:21 09:21 WBC RBC Hgb Hct MCV MCH MCHC RDW Lymph % (Auto) Absolute Neuts (auto) Seg Neutrophils % PT APTT Sodium 117.2 L* Potassium 3.2 L Chloride 75 L Glucose 162 H Total Bilirubin 14.9 H Direct Bilirubin 11.3 H AST 314 H ALT 71 H Alkaline Phosphatase 347 H Ammonia 107.8 H Albumin 3.3 L Urine Protein 100 H Urine Ketones TRACE H Urine Blood SMALL H Urine Bilirubin MODERATE H Urine Urobilinogen 4.0 H 04/24/20 04/24/20 09:21 10:35 WBC 15.2 H RBC 2.55 L Hgb 9.4 L Hct 26.0 L MCV 102 H MCH 37.0 H MCHC 36.2 H RDW 15.6 H Lymph % (Auto) 5.3 L Absolute Neuts (auto) 13.0 H Seg Neutrophils % 85.8 H PT 20.4 H APTT 43.5 H Sodium Potassium Chloride Glucose Total Bilirubin Direct Bilirubin AST ALT Alkaline Phosphatase Ammonia Albumin Urine Protein Urine Ketones Urine Blood Urine Bilirubin Urine Urobilinogen Discharge - Discharge Clinical Impression: Hyponatremia, Liver mass, Increased ammonia level, Hypokalemia Condition: Fair Disposition: ADMITTED OBSERVATION Admitting Provider: Angi (Hospitalist) Unit Admitted: Medical Floor
[2020-04-24 09:44] LABS: APPEARANCE,URINE SLIGHTLY-CLOUDY; BILIRUBIN,URINE MODERATE (NEGATIVE); COLOR,URINE AMBER; GLUCOSE, URINE NEGATIVE (NEGATIVE); KETONES,URINE TRACE mg/dL (NEGATIVE); LEUKOCYTE ESTERASE,URINE NEGATIVE (NEGATIVE); NITRITE,URINE NEGATIVE (NEGATIVE); PROTEIN,URINE 100 mg/dL (NEGATIVE); URINE SPECIFIC GRAVITY 1.023
[2020-04-24 09:57] LABS: ALBUMIN 3.3 g/dL (3.5-5.0); ALKALINE PHOSPHATASE 347 U/L (38-126); ANION GAP 14 (5-19); ASPARTATE AMINO TRANSFERASE 314 U/L (17-59); BILIRUBIN,DIRECT 11.3 mg/dL (0.0-0.4); BILIRUBIN,TOTAL 14.9 mg/dL (0.2-1.3); BLOOD UREA NITROGEN 11 mg/dL (7-20); CALCIUM 8.8 mg/dL (8.4-10.2); CARBON DIOXIDE 28 mmol/L (22-30); CHLORIDE 75 mmol/L (98-107); GLUCOSE 162 mg/dL (75-110); POTASSIUM 3.2 mmol/L (3.6-5.0); TOTAL PROTEIN 7.1 g/dL (6.3-8.2)
[2020-04-24 10:19] LABS: INTERNATIONAL RATION (INR) 1.74; PROTHROMBIN TIME 20.4 SEC (11.4-15.4)
[2020-04-24 10:20] LABS: PARTIAL THROMBOPLASTIN TIME 43.5 SEC (23.5-35.8)
[2020-04-24 10:52] LABS: ABSOLUTE LYMPHOCYTES (AUTO) 0.8 10^3/uL (0.5-4.7); ABSOLUTE MONOCYTES (AUTO) 1.3 10^3/uL (0.1-1.4); BASOPHILS % (AUTO) 0.2 % (0-2); EOSINOPHILS % (AUTO) 0.1 % (0-6); HEMOGLOBIN 9.4 g/dL (13.5-17.0); LYMPHOCYTES % (AUTO) 5.3 % (13-45); MEAN CORPUSCULAR HGB CONC 36.2 g/dL (32.0-36.0); MEAN CORPUSCULAR VOLUME 102 fl (80-97); MONOCYTES % (AUTO) 8.6 % (3-13); RED BLOOD COUNT 2.55 10^6/uL (4.35-5.55); RED CELL DISTRIBUTION WIDTH 15.6 % (11.5-14.0); SEGMENTED NEUTROPHILS % (AUTO) 85.8 % (42-78); TOTAL CELLS COUNTED % (AUTO) 100 %; WHITE BLOOD COUNT 15.2 10^3/uL (4.0-10.5)
[2020-04-24] MEDS ORDERED: LACTULOSE SYRUP 20 GM/30 ML UDCUP PO ONE (11:06)
[2020-04-24] MEDS ORDERED: PROMETHAZINE HCL INJ 25 MG/1 ML VIAL IV PRN (16:10)
[2020-04-24] MEDS ORDERED: ONDANSETRON HCL INJ/PF 4 MG/2 ML SDV IV PRN (16:10)
[2020-04-24] MEDS ORDERED: TEMAZEPAM 15 MG CAPSULE PO PRN (16:10)
[2020-04-24] MEDS ORDERED: MAG HYDROX/AL HYDROX/SIMETH SUSP 30 ML UDCUP PO PRN (16:10)
[2020-04-24] MEDS ORDERED: LORAZEPAM INJ 2 MG/1 ML VIAL IV PRN (16:15)
[2020-04-24] MEDS: FOLIC ACID 1 MG TABLET PO SCH (16:51)
[2020-04-24] MEDS: PANTOPRAZOLE SODIUM 40 MG TABLET.DR PO SCH (16:54)
[2020-04-24] MEDS: NORMAL SALINE 1000 ML 1,000 ML IV PRN (16:55)
[2020-04-24] MEDS: THIAMINE HCL 100 MG TABLET PO SCH (16:56)
--- NOTE | 2020-04-24 17:29 | PDOC H&P ---
History of Present Illness Admission Date/PCP: 04/24/20 13:28 Patient complains of: abdominal pain, nausea, anorexia History of Present Illness: KENNETH MCCLELLAND is a 55 year old male with PMH of alcohol abuse, beer potomania with resultant hyponatremia, fatty liver disease, diverticulosis and acute alcoholic pancreatitis who presented to the ED on 04/24/2020 "to be admitted." He previously presented to the ED on 04/22/2020 with RUQ abdominal pain, anorexia, nausea and vomiting. At that time, CT A/P was notable for ascites and multiple confluent liver lesions, concerning for primary HCC versus metastases. He was also found to have hyponatremia and hypokalemia. He was going to be admitted to the hospital, but declined admission and went home instead. He returns today stating that he needed time to talk to his family about his new diagnosis of cancer, and now feels emotionally prepared to address this new diagnosis head-on. With regard to his alcohol use history, he states that he is a life-long drinker. He drinks 10+ beers per day. Last drink was on Monday. He has no known history of alcohol withdrawal in the past. He is also a 0.5 PPD smoker. He has never had upper or lower endoscopy or other cancer screening. He doesn't have health insurance or a PCP, and takes no medications. He denies recent weight loss or gain, but states that his abdomen has been steadily increasing in size over an unknown period of time. Prior to this week, he tells me that has never been told that he has liver disease of any kind, although he has had several abdominal imaging studies, the last being in 2018, which showed fatty liver infiltration and hepatomegaly. Past Medical History Cardiac Medical History: Reports: None Pulmonary Medical History: Reports: None EENT Medical History: Reports: None Neurological Medical History: Reports: None Endocrine Medical History: Reports: None Renal/ Medical History: Reports: None Malignancy Medical History: Reports: None GI Medical History: Reports: Other - Pancreatitis Musculoskeltal Medical History: Reports: None Skin Medical History: Reports: None Psychiatric Medical History: Reports: None Traumatic Medical History: Reports: None Infectious Medical History: Reports: None Past Surgical History Past Surgical History: Reports: None Social History Information Source: Patient Lives with: Family Smoking Status: Current Every Day Smoker Cigarettes Packs Per Day: 10 Frequency of Alcohol Use: Heavy Hx Recreational Drug Use: No Drugs: None Hx Prescription Drug Abuse: No Family History Family History: Reviewed & Not Pertinent, Arthritis Parental Family History Reviewed: Yes Children Family History Reviewed: Yes Sibling(s) Family History Reviewed.: Yes Medication/Allergy Home Medications: Thiamine HCl [Thiamine 100 mg Tablet] 100 mg PO DAILY #30 tablet 06/17/16 Omeprazole Magnesium [Prilosec Otc] 20 mg PO Q12H #14 tablet. 09/30/17 Ondansetron [Zofran Odt 4 mg Tablet] 1 - 2 tab PO Q4H PRN #15 tab.bhavesh 09/30/17 Allergies/Adverse Reactions: No Known Allergies Allergy (Verified 04/22/20 12:23) Review of Systems Constitutional: PRESENT: anorexia, fatigue, weakness. ABSENT: fever(s), night sweats, weight gain, weight loss Nose, Mouth, and Throat: ABSENT: sore throat Cardiovascular: ABSENT: chest pain, dyspnea on exertion, orthropnea Respiratory: ABSENT: cough, dyspnea Gastrointestinal: PRESENT: abdominal pain, bloating, nausea, vomiting. ABSENT: coffee ground emesis, constipation, diarrhea, heartburn, hematemesis, hematochezia, melena Genitourinary: ABSENT: difficulty urinating, dysuria Musculoskeletal: PRESENT: muscle weakness Neurological: ABSENT: confusion, dizziness, focal weakness, frequent falls Psychiatric: ABSENT: homidical ideation, suicidal ideation Endocrine: ABSENT: polydipsia Hematologic/Lymphatic: ABSENT: easy bleeding Physical Exam Vital Signs: Temp Pulse Resp BP Pulse Ox 99.0 F 115 H 16 117/65 97 04/24/20 16:29 04/24/20 16:29 04/24/20 16:29 04/24/20 16:29 04/24/20 16:29 Intake & Output 04/23/20 04/24/20 04/25/20 06:59 06:59 06:59 Intake Total 1000 Balance 1000 Weight 63.503 kg General appearance: PRESENT: no acute distress, cooperative Eye exam: PRESENT: scleral icterus Mouth exam: PRESENT: dry mucosa, tongue midline Throat exam: ABSENT: post pharyngeal erythema Neck exam: ABSENT: lymphadenopathy, thyromegaly Respiratory exam: PRESENT: clear to auscultation justin, unlabored Cardiovascular exam: PRESENT: RRR GI/Abdominal exam: PRESENT: ascites, distended, normal bowel sounds, organolmegaly, soft, tenderness - RUQ and epigastric. ABSENT: firm, guarding, Cox's sign, rebound, rigid Rectal exam: PRESENT: deferred Gentrourinary exam: PRESENT: ecchymosis Extremities exam: ABSENT: joint swelling, pedal edema Musculoskeletal exam: PRESENT: ambulatory Neurological exam: PRESENT: alert, awake, oriented to person, oriented to place, oriented to time, oriented to situation Psychiatric exam: PRESENT: appropriate affect Skin exam: PRESENT: jaundice Results Laboratory Results: 04/24/20 10:35 04/24/20 09:21 04/24/20 04/24/20 04/24/20 09:21 09:21 09:21 WBC Cancelled RBC Cancelled Hgb Cancelled Hct Cancelled MCV Cancelled MCH Cancelled MCHC Cancelled RDW Cancelled Plt Count Cancelled Seg Neutrophils % Cancelled Sodium 117.2 L* Potassium 3.2 L Chloride 75 L Carbon Dioxide 28 Anion Gap 14 BUN 11 Creatinine 0.61 Est GFR ( Amer) > 60 Glucose 162 H Calcium 8.8 Total Bilirubin 14.9 H AST 314 H Alkaline Phosphatase 347 H Ammonia 107.8 H Total Protein 7.1 Albumin 3.3 L Urine Color Urine Appearance Urine pH Ur Specific [place] Urine Protein Urine Glucose (UA) Urine Ketones Urine Blood Urine Nitrite Ur Leukocyte Esterase Urine WBC (Auto) Urine RBC (Auto) 04/24/20 04/24/20 09:21 10:35 WBC 15.2 H RBC 2.55 L Hgb 9.4 L Hct 26.0 L MCV 102 H MCH 37.0 H MCHC 36.2 H RDW 15.6 H Plt Count Seg Neutrophils % 85.8 H Sodium Potassium Chloride Carbon Dioxide Anion Gap BUN Creatinine Est GFR ( Amer) Glucose Calcium Total Bilirubin AST Alkaline Phosphatase Ammonia Total Protein Albumin Urine Color EVER Urine Appearance SLIGHTLY-CLOUDY Urine pH 5.0 Ur Specific [place] 1.023 Urine Protein 100 H Urine Glucose (UA) NEGATIVE Urine Ketones TRACE H Urine Blood SMALL H Urine Nitrite NEGATIVE Ur Leukocyte Esterase NEGATIVE Urine WBC (Auto) 6 Urine RBC (Auto) 5 Assessment and Plan - Diagnosis (1) Hypokalemia Is this a current diagnosis for this admission?: Yes (2) Hyponatremia Is this a current diagnosis for this admission?: Yes (3) Increased ammonia level Is this a current diagnosis for this admission?: Yes (4) Liver mass Is this a current diagnosis for this admission?: Yes (5) Alcohol dependence Qualifiers: Substance use status: other alcohol-induced disorder Qualified Code(s): F10.288 - Alcohol dependence with other alcohol-induced disorder Is this a current diagnosis for this admission?: Yes (6) Tobacco dependence Is this a current diagnosis for this admission?: Yes (7) Transaminitis Is this a current diagnosis for this admission?: Yes (8) Ascites Is this a current diagnosis for this admission?: Yes (9) Neutrophilic leukocytosis Is this a current diagnosis for this admission?: Yes (10) Pancytopenia Is this a current diagnosis for this admission?: Yes - Plan Summary Summary: KENNETH MCCLELLAND is a 55 year old male with PMH of alcohol abuse, beer potomania with resultant hyponatremia, fatty liver disease, diverticulosis and acute alcoholic pancreatitis who presented to the ED on 04/24/2020 "to be admitted." He previously presented to the ED on 04/22/2020 with RUQ abdominal pain, anorexia, nausea and vomiting. At that time, CT A/P was notable for ascites and multiple confluent liver lesions, concerning for primary HCC versus metastases. He was also found to have hyponatremia and hypokalemia. He was going to be admitted to the hospital, but declined admission and went home instead. He returns today stating that he needed time to talk to his family about his new diagnosis of cancer, and now feels emotionally prepared to address this new diagnosis head-on. He has never had upper or lower endoscopy or other cancer screening. He doesn't have health insurance or a PCP, and takes no medications. He denies recent weight loss or gain, but states that his abdomen has been steadily increasing in size over an unknown period of time. Prior to this week, he tells me that has never been told that he has liver disease of any kind, although he has had several abdominal imaging studies, the last being in 2018, which showed fatty liver infiltration and hepatomegaly. Multiple Liver Masses: concerning for HCC versus metastatic disease. He has profound hyperbilirubinemia which may be related to his liver masses alone, but the fact that his tBili michelle from 10 to 15 in less than 2 days is concerning for possible obstructive process, so will order MRCP to further investigate. - check HIV, hepatitis panel, CEA, AFP Neutrophilic Leukocytosis: his RUQ pain, jaundice are likely related to his liver metastases, but WBC elevation concerning for possible underlying infection. - start cefazolin/Flagyl for possible intraabdominal infection - check MRCP Chronic Hyponatremia: not acute and with no acute AMS, does not require rapid correction. Due to beer potomania. - correct slowly, no more than 8-10 mEq/24 hours - strict I/O - NS at 75 ml/hr Alcohol Abuse: With regard to his alcohol use history, he states that he is a life-long drinker. He drinks 10+ beers per day. Last drink was on Monday. He has no known history of alcohol withdrawal in the past. - CIWA Q4H - Ativan PRN CIWA score >7 - cessation counseling provided Tobacco Abuse: He is also a 0.5 PPD smoker. - Nicotine patch - cessation counseling provided Uninsured: CM/SW consult for Medicaid/Disability +/- referral to [facility] DVT ppx: lovenox - Time Time Spent with patient: 35 or more minutes Anticipated Discharge Disposition: Home, Self Care Anticipated Discharge Timeframe: within 48 hours
[2020-04-24] MEDS ORDERED: ENOXAPARIN SODIUM INJ 40 MG/0.4 ML DISP.SYRIN SUBCUT SCH (18:00)
[2020-04-24] MEDS: METRONIDAZOLE 500 MG/NS RTU 500 MG/100 ML RTUPB IV SCH (18:36)
[2020-04-24] MEDS: ACETAMINOPHEN 325 MG TABLET PO PRN (18:43)
[2020-04-24] MEDS: CEFAZOLIN SODIUM 2 GM in DEXTROSE 5%-WATER 100 ML IV SCH (21:32)
[2020-04-24] MEDS: LACTULOSE SYRUP 20 GM/30 ML UDCUP PO SCH (21:35)
[2020-04-24] MEDS ORDERED: CEFAZOLIN 2 GM/D5W RTU 2 GM/50 ML RTUPB IV SCH (22:00)
[2020-04-25] MEDS: METRONIDAZOLE 500 MG/NS RTU 500 MG/100 ML RTUPB IV SCH ×3 (01:37→17:19)
[2020-04-25] MEDS: CEFAZOLIN SODIUM 2 GM in DEXTROSE 5%-WATER 100 ML IV SCH ×3 (05:24→21:54)
[2020-04-25] MEDS: PANTOPRAZOLE SODIUM 40 MG TABLET.DR PO SCH ×2 (05:24→17:22)
[2020-04-25 07:00] LABS: HEMATOCRIT 26.2 % (37.9-51.0); HEMOGLOBIN 9.5 g/dL (13.5-17.0); MEAN CORPUSCULAR HEMOGLOBIN 37.1 pg (27.0-33.4); MEAN CORPUSCULAR HGB CONC 36.2 g/dL (32.0-36.0); MEAN CORPUSCULAR VOLUME 102 fl (80-97); RED BLOOD COUNT 2.56 10^6/uL (4.35-5.55); RED CELL DISTRIBUTION WIDTH 15.7 % (11.5-14.0); WHITE BLOOD COUNT 11.5 10^3/uL (4.0-10.5)
[2020-04-25 07:06] LABS: ANION GAP 11 (5-19); BLOOD UREA NITROGEN 13 mg/dL (7-20); CALCIUM 7.9 mg/dL (8.4-10.2); CARBON DIOXIDE 26 mmol/L (22-30); CHLORIDE 87 mmol/L (98-107); GLUCOSE 117 mg/dL (75-110)
[2020-04-25 07:09] LABS: POTASSIUM 2.8 mmol/L (3.6-5.0)
[2020-04-25 07:38] LABS: PLATELET COUNT 59 10^3/uL (150-450)
[2020-04-25] MEDS ORDERED: INFLUENZA QUAD (6MOS+) 2020-21 VAC 0.5 ML SYR IM ONE (08:00)
[2020-04-25] MEDS: NORMAL SALINE 1000 ML 1,000 ML IV PRN (08:08)
[2020-04-25] MEDS ORDERED: POTASSIUM CHLORIDE 10 MEQ TABLET.ER PO ONE (09:00)
--- NOTE | 2020-04-25 10:36 | PDOC CONSULTATION ---
Consultation Consult Date: 04/25/20 Attending physician:: BOGDAN PEREZ Provider Consulted: ELHAM CANTU Consult reason:: Lower endoscopy History of Present Illness Admission Date/PCP: 04/24/20 13:28 History of Present Illness: KNENETH MCCLELLAND is a 55 year old male [facility] emergency department via ground rescue complaining of several week, perhaps month history of malaise, weight loss, abdominal bloating, decreased appetite. Patient was seen in the emergency department 3 days ago, diagnosed with liver failure, and likely hepatic malignancy either primary or metastatic, and offered admission and further management, however patient left, went home, then came back last night with same complaints. Patient is found to have persistent liver failure, extremely high total bilirubin, low albumin, coagulopathy, anemia, and hyponatremia. Repeat CT scan confirms massive replacement of liver with tumor, hepatomegaly, right sided ascites. Patient admitted for hydration, electrolyte correction, and further imaging. He just had an MRCP. Surgery consulted for colonoscopy as patient has never had 1. CEA level 12.7, alpha-fetoprotein level. Elevated, HIV status negative, COVID status pending; hepatitis panel pending Past Medical History Past Medical History: Smoking abuse, alcohol abuse, anemia Cardiac Medical History: Reports: None Pulmonary Medical History: Reports: None EENT Medical History: Reports: None Neurological Medical History: Reports: None Endocrine Medical History: Reports: None Renal/ Medical History: Reports: None Malignancy Medical History: Reports: None GI Medical History: Reports: None, Other - Pancreatitis Musculoskeltal Medical History: Reports: None Skin Medical History: Reports: None Psychiatric Medical History: Reports: None Denies: Depression Traumatic Medical History: Reports: None Infectious Medical History: Reports: None Past Surgical History Past Surgical History: Patient denies Past Surgical History: Reports: None Social History Information Source: Patient Lives with: Family Smoking Status: Current Every Day Smoker Cigarettes Packs Per Day: 10 Frequency of Alcohol Use: Heavy Hx Recreational Drug Use: No Drugs: None Hx Prescription Drug Abuse: No - Advance Directive Resuscitation Status: Full Code Family History Family History: None, Reviewed & Not Pertinent, Arthritis Parental Family History Reviewed: No Children Family History Reviewed: No Sibling(s) Family History Reviewed.: No Medication/Allergy Home Medications: No Home Medications 04/24/20 Allergies/Adverse Reactions: No Known Allergies Allergy (Verified 10/07/20 12:23) Review of Systems Constitutional: PRESENT: as per HPI Eyes: PRESENT: other - Noticed eyes do gotten yellow in the last several weeks. ABSENT: visual disturbances Cardiovascular: ABSENT: chest pain, dyspnea on exertion, edema, orthropnea, palpitations Respiratory: PRESENT: dyspnea Gastrointestinal: PRESENT: abdominal pain, bloating, other - One episode of dark stools earlier this week, now normal Musculoskeletal: ABSENT: joint swelling Neurological: ABSENT: abnormal gait, abnormal speech, confusion, dizziness, focal weakness, syncope Physical Exam Vital Signs: Temp Pulse Resp BP Pulse Ox 98.1 F 111 H 22 H 114/66 94 04/25/20 08:07 04/25/20 08:07 04/25/20 08:07 04/25/20 08:07 04/25/20 08:07 Intake & Output 04/24/20 04/25/20 04/26/20 06:59 06:59 06:59 Intake Total 2980 Output Total 400 Balance 2580 Weight 64.8 kg General appearance: PRESENT: no acute distress Head exam: PRESENT: normocephalic Eye exam: PRESENT: EOMI, scleral icterus, other - Wearing glasses Throat exam: PRESENT: other - No masses Neck exam: PRESENT: full ROM Respiratory exam: PRESENT: rhonchi Cardiovascular exam: PRESENT: RRR Pulses: PRESENT: normal carotid pulses, normal radial pulses, normal femoral pulses GI/Abdominal exam: PRESENT: other - Distended, liver palpable far below the right subcostal margin. Remainder of abdomen for but not focally tender. No rigidity no peritoneal signs Rectal exam: PRESENT: deferred Gentrourinary exam: PRESENT: other - No obvious hernia Extremities exam: PRESENT: full ROM Musculoskeletal exam: PRESENT: full ROM Neurological exam: PRESENT: oriented to person, oriented to place, oriented to time, oriented to situation Psychiatric exam: PRESENT: appropriate affect Skin exam: PRESENT: jaundice Results Laboratory Results: 04/25/20 05:21 04/25/20 05:21 04/24/20 04/25/20 04/25/20 10:35 05:21 05:21 WBC 15.2 H 11.5 H RBC 2.55 L 2.56 L Hgb 9.4 L 9.5 L Hct 26.0 L 26.2 L MCV 102 H 102 H MCH 37.0 H 37.1 H MCHC 36.2 H 36.2 H RDW 15.6 H 15.7 H Plt Count 59 L Seg Neutrophils % 85.8 H Sodium 123.6 L Potassium 2.8 L* Chloride 87 L Carbon Dioxide 26 Anion Gap 11 BUN 13 Creatinine 0.56 Est GFR ( Amer) > 60 Glucose 117 H Calcium 7.9 L Magnesium 2.0 Assessment & Plan - Diagnosis (1) Hyperbilirubinemia Is this a current diagnosis for this admission?: Yes Plan: Impression: Chronic hyperbilirubinemia secondary to liver failure secondary to intrahepatic malignancy of unclear etiology; rule out hepatocellular adenoma, cholangiocarcinoma, colorectal carcinoma with hepatic metastases, cirrhosis, and other causes Recommendations: 1. Discussed patient with Dr. Gutierrez, medical oncologist on-call, and Dr. Perez; agree with radiographic studies including MRCP, CT scans etc. Although patient may have a primary colorectal carcinoma, he is not demonstrating a large or obstructing mass on initial CT scan. 2. I think the emphasis should be on biliary decompression, an tissue diagnosis of the hepatic pathology. Considering the complexity of this patient, the limited resources at [facility], I recommended transfer to tertiary care facility. I spoke with Dr. Mcadams, [facility] director of surgical oncology to facilitate transfer. I have also spoke with about this recommendation. 3. In the interim we will follow-up on MRCP studies, continue to manage patient with fluid electrolytes etc. (2) Liver mass Is this a current diagnosis for this admission?: Yes (3) Coagulopathy Is this a current diagnosis for this admission?: Yes (4) Malnutrition Is this a current diagnosis for this admission?: Yes (5) Ascites Is this a current diagnosis for this admission?: Yes (6) Hyponatremia Is this a current diagnosis for this admission?: Yes (7) Alcohol dependence Qualifiers: Substance use status: other alcohol-induced disorder Qualified Code(s): F10.288 - Alcohol dependence with other alcohol-induced disorder Is this a current diagnosis for this admission?: Yes (8) Tobacco dependence Is this a current diagnosis for this admission?: Yes - Time Time Spent: 30 to 50 Minutes Medications reviewed and adjusted accordingly: Yes Anticipated discharge: Home - Inpatient Certification Based on my medical assessment, after consideration of the patient's comorbidities, presenting symptoms, or acuity I expect that the services needed warrant INPATIENT care.: Yes I certify that my determination is in accordance with my understanding of Medicare's requirements for reasonable and necessary INPATIENT services [42 CFR 412.3e].: Yes Medical Necessity: Need For IV Fluids, Need for Pain Control, Need for IV Antibiotics
[2020-04-25] MEDS: LACTULOSE SYRUP 20 GM/30 ML UDCUP PO SCH ×2 (10:55→21:52)
[2020-04-25] MEDS: POTASSI CL 20 MEQ/50 ML RIDER 20 MEQ/50 ML RTUPB IV SCH ×4 (10:56→17:19)
[2020-04-25] MEDS: FOLIC ACID 1 MG TABLET PO SCH (10:56)
[2020-04-25] MEDS: THIAMINE HCL 100 MG TABLET PO SCH (10:56)
[2020-04-25] MEDS: NICOTINE 21 MG/24 HR PATCH.TD24 TD SCH (10:56)
--- NOTE | 2020-04-25 11:10 | RADIOLOGY REPORT (SQ) ---
EXAM DESCRIPTION: MRI ABDOMEN WITHOUT IMAGES COMPLETED DATE/TIME: 04/25/2020 10:17 am REASON FOR STUDY: accidentally DC-ed prior order for MRCP COMPARISON: None. TECHNIQUE: Noncontrast MRCP. Source and MIP images reviewed. LIMITATIONS: Motion artifact. FINDINGS: GALLBLADDER: Normal. INTRAHEPATIC DUCTS: Nondilated. EXTRAHEPATIC DUCTS: Common duct is normal caliber. No dilatation of the pancreatic duct. No ductal filling defects noted. PANCREAS: Generally homogeneous, no gross mass or significant signal alteration. No surrounding infl ammatory changes or fluid. Pancreatic duct is normal. LIVER, SPLEEN, KIDNEYS, ADRENALS: Ascites. Known multiple liver masses. VESSELS: No aneurysm. LUNG BASES: Grossly clear. OTHER: No other significant finding. IMPRESSION: Limitations due to motion. No evidence of biliary obstruction. TECHNICAL DOCUMENTATION: JOB ID: [id number] 2010 [employer]- All Rights Reserved Reading location - IP/workstation name: [email or web address]
[2020-04-25 12:03] LABS: ABSOLUTE RETICS # 0.069 10^6/uL (0.028-0.122)
[2020-04-25 12:06] LABS: ALBUMIN 2.5 g/dL (3.5-5.0); ALKALINE PHOSPHATASE 264 U/L (38-126); ASPARTATE AMINO TRANSFERASE 244 U/L (17-59); BILIRUBIN,DIRECT 8.9 mg/dL (0.0-0.4); IRON(TIBC) 93.8 ug/dL (49-181); TOTAL PROTEIN 5.9 g/dL (6.3-8.2)
[2020-04-25] MEDS: POTASSI CL 40 MEQ/NS 1L 1,000 ML IV PRN (12:11)
[2020-04-25] MEDS: CALCIUM CARBONATE 500 MG TAB.CHEW PO SCH ×3 (12:17→21:54)
[2020-04-25] MEDS: PROPRANOLOL HCL 10 MG TABLET PO SCH ×2 (12:18→21:54)
--- NOTE | 2020-04-25 12:49 | PDOC CONSULTATION ---
Consultation Consult Date: 04/25/20 Provider Consulted: SRI WOODARD Consult reason:: Hematology/Oncology consultation was requested for liver mass and pancytopenia. History of Present Illness Admission Date/PCP: 04/24/20 13:28 History of Present Illness: KENNETH MCCLELLAND is a 55 year old male with no regular medical provider and no significant medical history. He presented to the ED with 7 days of abdominal pain. He was admitted to the hospital a few months ago for pancreatitis, according to the patient. This felt similar. He denies any nausea, vomiting, constipation or diarrhea. He understands that "the smoking and alcohol have caught up with me." He was told that he has liver damage due to this. Today, he states that he has had some reflux/GERD symptoms, but otherwise, is feeling OK. He has had increased BMs since admission (on lactulose). He left the ED earlier this week AMA, but now states that he is ready to get this taken care of. Past Medical History Cardiac Medical History: Reports: None Pulmonary Medical History: Reports: None EENT Medical History: Reports: None Neurological Medical History: Reports: None Endocrine Medical History: Reports: None Renal/ Medical History: Reports: None Malignancy Medical History: Reports: None GI Medical History: Reports: None, Other - Pancreatitis Musculoskeltal Medical History: Reports: None Skin Medical History: Reports: None Psychiatric Medical History: Reports: None Denies: Depression Traumatic Medical History: Reports: None Infectious Medical History: Reports: None Past Surgical History Past Surgical History: Reports: None Social History 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 No children. No pets. - Advance Directive Resuscitation Status: Full Code Family History Parental Family History Reviewed: Yes - mother and father both , but patient unaware of causes Children Family History Reviewed: NA Sibling(s) Family History Reviewed.: Yes - 2 sisters living and healthy Medication/Allergy Home Medications: No Home Medications 04/24/20 Allergies/Adverse Reactions: No Known Allergies Allergy (Verified 04/22/20 12:23) Review of Systems Constitutional: ABSENT: fever(s), headache(s) Eyes: ABSENT: visual disturbances Ears: ABSENT: hearing changes Nose, Mouth, and Throat: ABSENT: sore throat Cardiovascular: ABSENT: chest pain Respiratory: ABSENT: cough, dyspnea Gastrointestinal: PRESENT: abdominal pain, heartburn. ABSENT: constipation, nausea Genitourinary: ABSENT: dysuria Musculoskeletal: ABSENT: back pain Integumentary: ABSENT: rash Neurological: ABSENT: confusion, weakness Hematologic/Lymphatic: ABSENT: easy bleeding Physical Exam Vital Signs: Temp Pulse Resp BP Pulse Ox 98.1 F 111 H 22 H 114/66 94 04/25/20 08:07 04/25/20 08:07 04/25/20 08:07 04/25/20 08:07 04/25/20 08:07 Intake & Output 04/24/20 04/25/20 04/26/20 06:59 06:59 06:59 Intake Total 2980 278 Output Total 400 Balance 2580 278 Weight 64.8 kg General appearance: PRESENT: well-developed, well-nourished Exam: 55 year old male. Head exam: PRESENT: normocephalic Eye exam: PRESENT: scleral icterus Mouth exam: PRESENT: tongue midline Neck exam: ABSENT: lymphadenopathy, tenderness Respiratory exam: PRESENT: clear to auscultation justin, unlabored Cardiovascular exam: PRESENT: RRR GI/Abdominal exam: PRESENT: organolmegaly - liver 4 cm below costal margin., soft. ABSENT: tenderness Extremities exam: ABSENT: pedal edema Musculoskeletal exam: PRESENT: normal inspection Neurological exam: PRESENT: alert, awake, oriented to person, oriented to place, oriented to time, oriented to situation Psychiatric exam: PRESENT: appropriate affect Skin exam: PRESENT: jaundice Results Laboratory Results: 04/25/20 05:21 04/25/20 05:21 04/25/20 04/25/20 04/25/20 05:21 05:21 05:21 WBC 11.5 H RBC 2.56 L Hgb 9.5 L Hct 26.2 L MCV 102 H MCH 37.1 H MCHC 36.2 H RDW 15.7 H Plt Count 59 L Retic Count (auto) 2.70 Sodium 123.6 L Potassium 2.8 L* Chloride 87 L Carbon Dioxide 26 Anion Gap 11 BUN 13 Creatinine 0.56 Est GFR ( Amer) > 60 Glucose 117 H Calcium 7.9 L Magnesium 2.0 Impressions: Abdomen MRI 04/25/20 00:00 IMPRESSION: Limitations due to motion. No evidence of biliary obstruction. Status: Image reviewed by me Assessment & Plan - Diagnosis (1) Coagulopathy Is this a current diagnosis for this admission?: Yes Plan: Most likely due to liver failure. No obvious bleeding currently, but bleeding precautions are appropriate. (2) Liver mass Is this a current diagnosis for this admission?: Yes Plan: Unclear at this time if this is from liver failure/inflammation or from cancer. Liver biopsy at this point may be a bit risky due to coagulopathy, but ultimately, pathologic confirmation of cancer will be recommended. AFP was normal and CEA only mildly elevated. No evidence of cancer on recent CT scans, outside of the liver, but CT chest with contrast is also recommended as he is also at high risk for lung cancer. (3) Pancytopenia Is this a current diagnosis for this admission?: Yes Plan: His WBC count is actually elevated and I see no evidence that this has been low at any time. His HGB and PLT are mildly decreased, consistent with chronic tyler er failure. I would HOLD any anticoagulation as long as PLT <50 and consider transfusions for HGB <8. His iron panel, B12 and folate levels are still pending. - Plan Summary Plan Summary: Patient was discussed with Dr. Whitley and Rica. I have reviewed notes extensively as well as labs, readiology, etc.
[2020-04-25 13:15] LABS: FOLATE 4.71 ng/mL (>2.76)
[2020-04-25 13:29] LABS: BILIRUBIN,TOTAL 11.3 mg/dL (0.2-1.3)
--- NOTE | 2020-04-25 13:39 | RADIOLOGY REPORT (SQ) ---
EXAM DESCRIPTION: CT CHEST WITH IMAGES COMPLETED DATE/TIME: 04/25/2020 1:19 pm REASON FOR STUDY: concern for metastatic colon CA COMPARISON: None. TECHNIQUE: CT scan of the chest performed using helical scanning technique with dynamic intravenous contrast injection. Images reviewed with lung, soft tissue and bone windows. Reconstructed coronal and sagittal MPR and MIP images reviewed. All images stored on PACS. All CT scanners at this facility use dose modulation, iterative reconstruction, and/or weight based d osing when appropriate to reduce radiation dose to as low as reasonably achievable (ALARA). [facility]: Dose Right [facility]: CareDose [facility]: Dose Right [facility]: Teradose 4D [facility]: Smart [employer] RENAL FUNCTION: GFR > 60. RADIATION DOSE: CT Rad equipment meets quality standard of care and radiation dose reduction techniq ues were employed. CTDIvol: 6.8 - 10.0 mGy. DLP: 1173 mGy-cm. . LIMITATIONS: None. FINDINGS: LUNGS AND PLEURA: Trace left pleural effusion. No suspicious nodules. No infiltrate. HILAR AND MEDIASTINAL STRUCTURES: No identified masses or abnormal nodes. HEART AND VASCULAR STRUCTURES: No aneurysm or dissection. No central pulmonary emboli. No pericardi al effusion. HARDWARE: None in the chest. UPPER ABDOMEN: See separate report of the CT of the abdomen. THYROID AND OTHER SOFT TISSUES: No masses. No adenopathy. BONES: No significant finding. OTHER: No other significant finding. IMPRESSION: Trace right pleural effusion. No pulmonary nodules. TECHNICAL DOCUMENTATION: JOB ID: [id number] Quality ID # [id number]: Final reports with documentation of one or more dose reduction techniques (e.g., Au tomated exposure control, adjustment of the mA and/or kV according to patient size, use of iterative reconstruction technique) 2010 [employer]- All Rights Reserved Reading location - IP/workstation name: [email or web address]
[2020-04-25] MEDS: OXYCODONE HCL IR 5 MG TABLET PO PRN (17:21)
--- NOTE | 2020-04-25 19:19 | PDOC PROGRESS REPORT ---
Subjective Progress Note for:: 04/25/20 Subjective:: NAEO. He has been having lots of stools since starting lactulose. Otherwise feeling okay. Reason For Visit: CIRRHOSIS, ASCITES, HYPONATREMIA, HYPOKALEMIA Physical Exam Vital Signs: Temp Pulse Resp BP Pulse Ox 98.4 F 79 19 94/61 L 97 04/25/20 16:14 04/25/20 16:14 04/25/20 16:14 04/25/20 16:14 04/25/20 16:14 Intake & Output 04/24/20 04/25/20 04/26/20 06:59 06:59 06:59 Intake Total 2980 1021 Output Total 400 50 Balance 2580 971 Weight 64.8 kg General appearance: PRESENT: no acute distress Eye exam: PRESENT: scleral icterus Mouth exam: PRESENT: moist Throat exam: ABSENT: post pharyngeal erythema Neck exam: ABSENT: thyromegaly Respiratory exam: PRESENT: clear to auscultation justin, unlabored Cardiovascular exam: PRESENT: RRR GI/Abdominal exam: PRESENT: ascites, distended, normal bowel sounds, organolmegaly, soft. ABSENT: firm, guarding, rebound, rigid, tenderness Rectal exam: PRESENT: deferred Extremities exam: PRESENT: pedal edema Neurological exam: PRESENT: alert, awake, oriented to person, oriented to place, oriented to time, oriented to situation Psychiatric exam: PRESENT: appropriate affect Skin exam: PRESENT: jaundice Results Laboratory Results: 04/25/20 05:21 04/25/20 05:21 04/25/20 04/25/20 04/25/20 05:21 05:21 05:21 WBC 11.5 H RBC 2.56 L Hgb 9.5 L Hct 26.2 L MCV 102 H MCH 37.1 H MCHC 36.2 H RDW 15.7 H Plt Count 59 L Retic Count (auto) Sodium 123.6 L Potassium 2.8 L* Chloride 87 L Carbon Dioxide 26 Anion Gap 11 BUN 13 Creatinine 0.56 Est GFR ( Amer) > 60 Glucose 117 H Calcium 7.9 L Magnesium 2.0 Iron 93.8 TIBC 156 L % Saturation 60 Ferritin 5700.00 H Total Bilirubin 11.3 H D AST 244 H Alkaline Phosphatase 264 H Total Protein 5.9 L Albumin 2.5 L Vitamin B12 > 1000.0 H Folate 4.71 04/25/20 05:21 WBC RBC Hgb Hct MCV MCH MCHC RDW Plt Count Retic Count (auto) 2.70 Sodium Potassium Chloride Carbon Dioxide Anion Gap BUN Creatinine Est GFR ( Amer) Glucose Calcium Magnesium Iron TIBC % Saturation Ferritin Total Bilirubin AST Alkaline Phosphatase Total Protein Albumin Vitamin B12 Folate Impressions: Abdomen MRI 04/25/20 00:00 IMPRESSION: Limitations due to motion. No evidence of biliary obstruction. Chest CT 04/25/20 00:00 IMPRESSION: Trace right pleural effusion. No pulmonary nodules. Assessment and Plan - Diagnosis (1) Hypokalemia Is this a current diagnosis for this admission?: Yes (2) Hyponatremia Is this a current diagnosis for this admission?: Yes (3) Increased ammonia level Is this a current diagnosis for this admission?: Yes (4) Liver mass Is this a current diagnosis for this admission?: Yes (5) Alcohol dependence Qualifiers: Substance use status: other alcohol-induced disorder Qualified Code(s): F10.288 - Alcohol dependence with other alcohol-induced disorder Is this a current diagnosis for this admission?: Yes (6) Tobacco dependence Is this a current diagnosis for this admission?: Yes (7) Transaminitis Is this a current diagnosis for this admission?: Yes (8) Ascites Is this a current diagnosis for this admission?: Yes (9) Neutrophilic leukocytosis Is this a current diagnosis for this admission?: Yes (10) Pancytopenia Is this a current diagnosis for this admission?: Yes - Plan Summary Summary: KENNETH MCCLELLAND is a 55 year old male with PMH of alcohol abuse, beer potomania with resultant hyponatremia, fatty liver disease, diverticulosis and acute alcoholic pancreatitis who presented to the ED on 04/24/2020 "to be admitted." He previously presented to the ED on 04/22/2020 with RUQ abdominal pain, anorexia, nausea and vomiting. At that time, CT A/P was notable for ascites and multiple confluent liver lesions, concerning for primary HCC versus metastases. He was also found to have hyponatremia and hypokalemia. He was going to be admitted to the hospital, but declined admission and went home instead. He returns today stating that he needed time to talk to his family about his new diagnosis of cancer, and now feels emotionally prepared to address this new diag nosis head-on. He has never had upper or lower endoscopy or other cancer screening. He doesn't have health insurance or a PCP, and takes no medications. He denies recent weight loss or gain, but states that his abdomen has been steadily increasing in size over an unknown period of time. Prior to this week, he tells me that has never been told that he has liver disease of any kind, although he has had several abdominal imaging studies, the last being in 2018, which showed fatty liver infiltration and hepatomegaly. Multiple Liver Masses: concerning for HCC versus metastatic disease. - Oncology consulted - Surgery consulted, and do not feel he is a candidate for inpt colonoscopy, and have rec'd liver mass biopsy vs transfer to tertiary care facility for further work up - unfortunately, I have tried calling several tertiary care facilities including [facility] and [facility], and these facilities are full and not accepting stable transfers at this time - we do not have IR available over the weekend - CT C/A/P: pending - MRCP: no evidence of obstruction - hepatitis panel: pending - CEA: minimally elevated - AFP: normal Cirrhosis: unclear if this is due to longstanding alcohol abuse or recent onset due to liver masses. He has ascites, thrombocytopenia, hyperammonemia, etc. - propranolol - pantoprazole - lactulose Neutrophilic Leukocytosis: resolved - BCx NGTD Chronic Hyponatremia: not acute and with no acute AMS, does not require rapid correction. Due to beer potomania. - correct slowly, no more than 8-10 mEq/24 hours - strict I/O - NS at 75 ml/hr Alcohol Abuse: With regard to his alcohol use history, he states that he is a life-long drinker. He drinks 10+ beers per day. Last drink was on Monday. He has no known history of alcohol withdrawal in the past. - CIWA Q4H - Ativan PRN CIWA score >7 - cessation counseling provided Tobacco Abuse: He is also a 0.5 PPD smoker. - Nicotine patch - cessation counseling provided Uninsured: CM/SW consult for Medicaid/Disability +/- [facility] - Time Time Spent with patient: 35 or more minutes Anticipated Discharge Disposition: Home, Self Care Anticipated Discharge Timeframe: within 48 hours
[2020-04-25] MEDS: LORAZEPAM 1 MG TABLET PO PRN (20:26)
[2020-04-26] MEDS: METRONIDAZOLE 500 MG/NS RTU 500 MG/100 ML RTUPB IV SCH ×2 (02:47→09:42)
[2020-04-26 05:49] LABS: HEMATOCRIT 27.6 % (37.9-51.0); HEMOGLOBIN 9.8 g/dL (13.5-17.0); MEAN CORPUSCULAR HEMOGLOBIN 37.3 pg (27.0-33.4); MEAN CORPUSCULAR HGB CONC 35.7 g/dL (32.0-36.0); MEAN CORPUSCULAR VOLUME 105 fl (80-97); RED BLOOD COUNT 2.64 10^6/uL (4.35-5.55); RED CELL DISTRIBUTION WIDTH 16.6 % (11.5-14.0)
[2020-04-26 06:04] LABS: ALBUMIN 2.5 g/dL (3.5-5.0); ALKALINE PHOSPHATASE 259 U/L (38-126); ANION GAP 10 (5-19); ASPARTATE AMINO TRANSFERASE 216 U/L (17-59); BILIRUBIN,DIRECT 8.6 mg/dL (0.0-0.4); BILIRUBIN,TOTAL 10.4 mg/dL (0.2-1.3); BLOOD UREA NITROGEN 11 mg/dL (7-20); CALCIUM 8.1 mg/dL (8.4-10.2); CARBON DIOXIDE 21 mmol/L (22-30); CHLORIDE 97 mmol/L (98-107); GLUCOSE 91 mg/dL (75-110); POTASSIUM 3.9 mmol/L (3.6-5.0)
[2020-04-26 06:49] LABS: PLATELET COUNT 70 10^3/uL (150-450)
[2020-04-26] MEDS: CEFAZOLIN SODIUM 2 GM in DEXTROSE 5%-WATER 100 ML IV SCH ×2 (06:49→14:17)
[2020-04-26] MEDS: PANTOPRAZOLE SODIUM 40 MG TABLET.DR PO SCH ×2 (06:53→18:45)
[2020-04-26 07:37] LABS: HEPATITS B SURFACE ANTIGEN Negative (Negative)
[2020-04-26] MEDS ORDERED: POTASSIUM CHLORIDE 10 MEQ TABLET.ER PO ONE (09:00)
[2020-04-26] MEDS: LACTULOSE SYRUP 20 GM/30 ML UDCUP PO SCH (09:40)
[2020-04-26] MEDS: THIAMINE HCL 100 MG TABLET PO SCH (09:41)
[2020-04-26] MEDS: FOLIC ACID 1 MG TABLET PO SCH (09:41)
[2020-04-26] MEDS: CALCIUM CARBONATE 500 MG TAB.CHEW PO SCH ×4 (09:41→22:27)
[2020-04-26] MEDS: NICOTINE 21 MG/24 HR PATCH.TD24 TD SCH (09:43)
[2020-04-26] MEDS: PROPRANOLOL HCL 10 MG TABLET PO SCH ×3 (09:43→22:27)
[2020-04-26] MEDS: SODIUM BICARBONATE 650 MG TABLET PO SCH ×3 (09:49→18:45)
[2020-04-26] MEDS: OXYCODONE HCL IR 5 MG TABLET PO PRN ×3 (09:52→18:45)
--- NOTE | 2020-04-26 10:41 | PDOC PROGRESS REPORT ---
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 No discrete pulmonary pathology Physical Exam Vital Signs: Temp Pulse Resp BP Pulse Ox 98.6 F 75 19 107/67 94 04/26/20 07:57 04/26/20 07:57 04/26/20 07:57 04/26/20 07:57 04/26/20 07:57 Intake & Output 04/25/20 04/26/20 04/27/20 06:59 06:59 06:59 Intake Total 2980 2121 Output Total 400 50 Balance 2580 2071 Weight 64.8 kg 64.8 kg General appearance: PRESENT: no acute distress, other - Patient sleeping early this morning GI/Abdominal exam: PRESENT: other - Abdomen remains distended; no peritoneal signs Results Laboratory Results: 04/26/20 05:24 04/26/20 05:24 04/25/20 04/25/20 04/26/20 05:21 05:21 05:24 WBC 11.0 H RBC 2.64 L Hgb 9.8 L Hct 27.6 L MCV 105 H MCH 37.3 H MCHC 35.7 RDW 16.6 H Plt Count 70 L Retic Count (auto) 2.70 Sodium Potassium Chloride Carbon Dioxide Anion Gap BUN Creatinine Est GFR ( Amer) Glucose Calcium Magnesium Iron 93.8 TIBC 156 L % Saturation 60 Ferritin 5700.00 H Total Bilirubin 11.3 H D AST 244 H Alkaline Phosphatase 264 H Total Protein 5.9 L Albumin 2.5 L Vitamin B12 > 1000.0 H Folate 4.71 04/26/20 05:24 WBC RBC Hgb Hct MCV MCH MCHC RDW Plt Count Retic Count (auto) Sodium 127.7 L Potassium 3.9 Chloride 97 L Carbon Dioxide 21 L Anion Gap 10 BUN 11 Creatinine 0.48 L Est GFR ( Amer) > 60 Glucose 91 Calcium 8.1 L Magnesium 1.9 Iron TIBC % Saturation Ferritin Total Bilirubin 10.4 H AST 216 H Alkaline Phosphatase 259 H Total Protein 6.0 L Albumin 2.5 L Vitamin B12 Folate Impressions: Abdomen MRI 04/25/20 00:00 IMPRESSION: Limitations due to motion. No evidence of biliary obstruction. Chest CT 04/25/20 00:00 IMPRESSION: Trace right pleural effusion. No pulmonary nodules. Assessment & Plan - Diagnosis (1) Hyperbilirubinemia Is this a current diagnosis for this admission?: Yes (2) Liver mass Is this a current diagnosis for this admission?: Yes Plan: Impression: Patient hemodynamically stable, no evidence of drop in hemoglobin; liver function studies incrementally improved; review of imaging studies, and after discussion with Dr. Love, radiologist, and Dr. Mcadams, [facility] surgical oncologist, I believe we dealing principally with liver failure due to cirrhosis, and with possible hepatocellular carcinoma. There is no indication for operative decompression of the biliary tree as the ductal system is not dilated. And is having no GI bleeding and hemoglobin up to 9.8. Recommendations: 1. Hold off on bowel prep, and colonoscopy as the side effects of the bowel prep may be adversive, and risks of colonoscopy in this patient with coagulopathy, thrombocytopenia, hepatomegaly outweigh any benefit at this time. 2. Agree with plans for IR to biopsy liver tomorrow, obtain a tissue diagnosis. In the interim continue supportive care. 3. Surgery will sign off; reconsult if clinically indicated; I discussed the above with Dr. Whitley (3) Coagulopathy Is this a current diagnosis for this admission?: Yes (4) Malnutrition Is this a current diagnosis for this admission?: Yes (5) Ascites Is this a current diagnosis for this admission?: Yes (6) Hyponatremia Is this a current diagnosis for this admission?: Yes (7) Alcohol dependence Qualifiers: Substance use status: other alcohol-induced disorder Qualified Code(s): F10.288 - Alcohol dependence with other alcohol-induced disorder Is this a current diagnosis for this admission?: Yes (8) Tobacco dependence Is this a current diagnosis for this admission?: Yes - Time Time Spent: 30 to 50 Minutes Critical Time spent with patient: 15-24 minutes Medications reviewed and adjusted accordingly: Yes Anticipated Discharge Disposition: Home, Self Care Anticipated Discharge Timeframe: when bed available
--- NOTE | 2020-04-26 11:00 | RADIOLOGY REPORT (SQ) ---
EXAM DESCRIPTION: CT ABD/PELVIS WITH IV ORAL IMAGES COMPLETED DATE/TIME: 04/26/2020 10:39 am REASON FOR STUDY: METASTATIC COLON CA COMPARISON: 04/22/2020. TECHNIQUE: CT scan of the abdomen and pelvis performed with intravenous and oral contrast using niya kate scanning technique with dynamic intravenous contrast injection. Images reviewed with lung, soft t issue, and bone windows. Reconstructed coronal and sagittal MPR images reviewed. Delayed images for e valuation of the urinary system also acquired. All images stored on PACS. All CT scanners at this facility use dose modulation, iterative reconstruction, and/or weight based d osing when appropriate to reduce radiation dose to as low as reasonably achievable (ALARA). [facility]: Dose Right [facility]: CareDose [facility]: Dose Right [facility]: Teradose 4D [facility]: Smart [employer] RENAL FUNCTION: GFR > 60. RADIATION DOSE: . LIMITATIONS: None. FINDINGS: No change from 3 days prior. Oral contrast limited to the descending and sigmoid colon. No colon primary is identified. Extensive liver metastasis. Mild ascites. Nonobstructing right bessie al calculus. IMPRESSION: Ascites and liver metastasis. No colon primary is identified. TECHNICAL DOCUMENTATION: JOB ID: [id number] Quality ID # [id number]: Final reports with documentation of one or more dose reduction techniques (e.g., Au tomated exposure control, adjustment of the mA and/or kV according to patient size, use of iterative reconstruction technique) 2010 [employer]- All Rights Reserved Reading location - IP/workstation name: [email or web address]
[2020-04-26 11:38] LABS: HEPATITIS C VIRUS ANTIBODY <0.1 s/co ratio (0.0-0.9)
[2020-04-26] MEDS: POTASSI CL 40 MEQ/NS 1L 1,000 ML IV PRN ×2 (12:29→23:58)
--- NOTE | 2020-04-26 16:14 | PDOC PROGRESS REPORT ---
Subjective Progress Note for:: 04/26/20 Subjective:: NAEO. Feels okay today. Continues to have RUQ discomfort, controlled on current regimen. Reason For Visit: CIRRHOSIS, ASCITES, HYPONATREMIA, HYPOKALEMIA Physical Exam Vital Signs: Temp Pulse Resp BP Pulse Ox 98.0 F 79 18 115/88 H 95 04/26/20 12:01 04/26/20 12:01 04/26/20 12:01 04/26/20 12:01 04/26/20 12:01 Intake & Output 04/25/20 04/26/20 04/27/20 06:59 06:59 06:59 Intake Total 2980 2121 220 Output Total 400 50 Balance 2580 2071 220 Weight 64.8 kg 64.8 kg General appearance: PRESENT: no acute distress, cooperative Eye exam: PRESENT: scleral icterus Mouth exam: PRESENT: moist Throat exam: ABSENT: post pharyngeal erythema Respiratory exam: PRESENT: clear to auscultation justin, unlabored Cardiovascular exam: PRESENT: RRR GI/Abdominal exam: PRESENT: ascites, distended, normal bowel sounds, soft, tenderness - RUQ. ABSENT: guarding, rebound Rectal exam: ABSENT: deferred Extremities exam: ABSENT: pedal edema Neurological exam: PRESENT: alert, awake. ABSENT: altered Psychiatric exam: PRESENT: appropriate affect Skin exam: ABSENT: rash Results Laboratory Results: 04/26/20 05:24 04/26/20 05:24 04/26/20 04/26/20 04/26/20 05:24 05:24 11:46 WBC 11.0 H RBC 2.64 L Hgb 9.8 L Hct 27.6 L MCV 105 H MCH 37.3 H MCHC 35.7 RDW 16.6 H Plt Count 70 L Sodium 127.7 L Potassium 3.9 Chloride 97 L Carbon Dioxide 21 L Anion Gap 10 BUN 11 Creatinine 0.48 L Est GFR ( Amer) > 60 Glucose 91 Calcium 8.1 L Magnesium 1.9 Total Bilirubin 10.4 H AST 216 H Alkaline Phosphatase 259 H Ammonia 32.9 Total Protein 6.0 L Albumin 2.5 L Impressions: Abdomen MRI 04/25/20 00:00 IMPRESSION: Limitations due to motion. No evidence of biliary obstruction. Abdomen/Pelvis CT 04/25/20 00:00 IMPRESSION: Ascites and liver metastasis. No colon primary is identified. Chest CT 04/25/20 00:00 IMPRESSION: Trace right pleural effusion. No pulmonary nodules. Assessment and Plan - Diagnosis (1) Hypokalemia Is this a current diagnosis for this admission?: Yes (2) Hyponatremia Is this a current diagnosis for this admission?: Yes (3) Increased ammonia level Is this a current diagnosis for this admission?: Yes (4) Liver mass Is this a current diagnosis for this admission?: Yes (5) Alcohol dependence Qualifiers: Substance use status: other alcohol-induced disorder Qualified Code(s): F10.288 - Alcohol dependence with other alcohol-induced disorder Is this a current diagnosis for this admission?: Yes (6) Tobacco dependence Is this a current diagnosis for this admission?: Yes (7) Transaminitis Is this a current diagnosis for this admission?: Yes (8) Ascites Is this a current diagnosis for this admission?: Yes (9) Neutrophilic leukocytosis Is this a current diagnosis for this admission?: Yes (10) Pancytopenia Is this a current diagnosis for this admission?: Yes (11) Cirrhosis of liver Qualifiers: Hepatic cirrhosis type: unspecified hepatic cirrhosis Ascites presence: with ascites Qualified Code(s): K74.60 - Unspecified cirrhosis of liver; R18.8 - Other ascites Is this a current diagnosis for this admission?: Yes (12) Esophageal varices in cirrhosis Is this a current diagnosis for this admission?: Yes - Plan Summary Summary: KENNETH MCCLELLAND is a 55 year old male with PMH of alcohol abuse, beer potomania with resultant hyponatremia, fatty liver disease, diverticulosis and acute alcoholic pancreatitis who presented to the ED on 04/24/2020 "to be admitted." He previously presented to the ED on 04/22/2020 with RUQ abdominal pain, anorexia, nausea and vomiting. At that time, CT A/P was notable for ascites and multiple confluent liver lesions, concerning for primary HCC versus metastases. He was also found to have hyponatremia and hypokalemia. He was going to be admitted to the hospital, but declined admission and went home instead. He returned to the ED a few days later stating that he needed time to talk to his family about his new diagnosis of cancer, and now feels emotionally prepared to address this new diagnosis head-on. He has never had upper or lower endoscopy or other cancer screening. He doesn't have health insurance or a PCP, and takes no medications. He denies recent weight loss or gain, but states that his abdomen has been steadily increasing in size over an unknown period of time. Prior to this week, he tells me that has never been told that he has liver disease of any kind, although he has had several abdominal imaging studies, the last being in 2018, which showed fatty liver infiltration and hepatomegaly. Multiple Liver Masses: concerning for HCC versus metastatic disease. - Oncology consulted - Surgery consulted, and do not feel he is a candidate for inpt colonoscopy, and have rec'd liver mass biopsy vs transfer to tertiary care facility for further work up - unfortunately, I have tried calling several tertiary care facilities including [facility] and [facility], and these facilities are full and not accepting stable transfers at this time - we do not have IR available over the weekend, will discuss possible biopsy tomorrow with IR - CT C/A/P with contrast showed no obvious source of primary malignancy - MRCP: no evidence of hepatobiliary obstruction, but did show esophageal varices - hepatitis panel: negative - CEA: minimally elevated - AFP: normal Cirrhosis of the Liver with Ascites: unclear if this is due to longstanding alcohol abuse, ARENAS or recent onset due to liver masses. He has ascites, thro mbocytopenia, hyperammonemia, varices, etc. - propranolol - pantoprazole - lactulose Neutrophilic Leukocytosis: resolved - BCx NGTD Chronic Hyponatremia: not acute and with no acute AMS, does not require rapid correction. Due to beer potomania. - correct slowly, no more than 8-10 mEq/24 hours - strict I/O - NS at 75 ml/hr Alcohol Abuse: With regard to his alcohol use history, he states that he is a life-long drinker. He drinks 10+ beers per day. Last drink was on about one week ago. He has no known history of alcohol withdrawal in the past. - CIWA Q4H - Ativan PRN CIWA score >7 - cessation counseling provided Tobacco Abuse: He is also a 0.5 PPD smoker. - Nicotine patch - cessation counseling provided Uninsured: CM/SW consult for Medicaid/Disability +/- referral to [facility] - Time Time Spent with patient: 35 or more minutes Anticipated Discharge Disposition: Home, Self Care Anticipated Discharge Timeframe: within 24 hours
[2020-04-26] MEDS: LORAZEPAM 1 MG TABLET PO PRN (22:27)
[2020-04-26] MEDS: MELATONIN 5 MG TABLET PO SCH (22:27)
[2020-04-27] MEDS: PANTOPRAZOLE SODIUM 40 MG TABLET.DR PO SCH ×2 (05:47→17:51)
[2020-04-27 07:02] LABS: HEMATOCRIT 29.5 % (37.9-51.0); HEMOGLOBIN 10.2 g/dL (13.5-17.0); MEAN CORPUSCULAR HEMOGLOBIN 36.5 pg (27.0-33.4); MEAN CORPUSCULAR HGB CONC 34.7 g/dL (32.0-36.0); MEAN CORPUSCULAR VOLUME 105 fl (80-97); PLATELET COUNT 109 10^3/uL (150-450); RED CELL DISTRIBUTION WIDTH 16.7 % (11.5-14.0); WHITE BLOOD COUNT 16.7 10^3/uL (4.0-10.5)
[2020-04-27 07:22] LABS: INTERNATIONAL RATION (INR) 1.91
[2020-04-27 07:23] LABS: PARTIAL THROMBOPLASTIN TIME 52.6 SEC (23.5-35.8)
[2020-04-27 07:29] LABS: ANION GAP 8 (5-19); BLOOD UREA NITROGEN 12 mg/dL (7-20); CALCIUM 8.4 mg/dL (8.4-10.2); CARBON DIOXIDE 18 mmol/L (22-30); CHLORIDE 102 mmol/L (98-107); GLUCOSE 104 mg/dL (75-110)
[2020-04-27] MEDS ORDERED: LACTULOSE SYRUP 20 GM/30 ML UDCUP PO ONE (08:06)
[2020-04-27] MEDS ORDERED: NORMAL SALINE 1000 ML 1,000 ML IV ONE (08:07)
[2020-04-27 08:09] LABS: POTASSIUM 6.3 mmol/L (3.6-5.0)
--- NOTE | 2020-04-27 08:53 | PDOC PROGRESS REPORT ---
Subjective Progress Note for:: 04/27/20 Subjective:: Patient states that he has been feeling OK. Denies pain or dyspnea. Reason For Visit: CIRRHOSIS, ASCITES, HYPONATREMIA, HYPOKALEMIA Physical Exam Vital Signs: Temp Pulse Resp BP Pulse Ox 97.4 F 70 12 108/68 91 L 04/27/20 00:25 04/27/20 00:25 04/27/20 00:25 04/27/20 00:25 04/27/20 00:25 Intake & Output 04/26/20 04/27/20 04/28/20 06:59 06:59 06:59 Intake Total 2121 1340 Output Total 50 375 Balance 2071 965 Weight 64.8 kg 64.8 kg General appearance: PRESENT: no acute distress Head exam: PRESENT: normocephalic Eye exam: PRESENT: EOMI Respiratory exam: PRESENT: unlabored Musculoskeletal exam: PRESENT: normal inspection Neurological exam: PRESENT: alert, awake Skin exam: PRESENT: normal color Results Laboratory Results: 04/27/20 06:35 04/27/20 06:35 04/26/20 04/27/20 04/27/20 11:46 06:35 06:35 WBC 16.7 H RBC 2.80 L Hgb 10.2 L Hct 29.5 L MCV 105 H MCH 36.5 H MCHC 34.7 RDW 16.7 H Plt Count 109 L Sodium 128.3 L Potassium 6.3 H* Chloride 102 Carbon Dioxide 18 L Anion Gap 8 BUN 12 Creatinine 0.43 L Est GFR ( Amer) > 60 Glucose 104 Calcium 8.4 Magnesium 2.1 Ammonia 32.9 Impressions: Abdomen MRI 04/25/20 00:00 IMPRESSION: Limitations due to motion. No evidence of biliary obstruction. Abdomen/Pelvis CT 04/25/20 00:00 IMPRESSION: Ascites and liver metastasis. No colon primary is identified. Chest CT 04/25/20 00:00 IMPRESSION: Trace right pleural effusion. No pulmonary nodules. Assessment & Plan - Diagnosis (1) Coagulopathy Is this a current diagnosis for this admission?: Yes Plan: Most likely due to chronic liver failure. His HIV and Hepatitis panel were all negative. Sadly, the coagulopathy may be preventing biopsy. I am not sure if VIt K or FFP will make a difference, but would try this, if no biopsy can be obtained safely with current coagulopathy. (2) Liver mass Is this a current diagnosis for this admission?: Yes Plan: CEA mildly elevated. AFP was normal. He will need a pathologic diagnosis of the liver mass before further recommendations can be made. If this is not possible here, may need to transfer to the Liver transplant team for further recommendations. (3) Pancytopenia Is this a current diagnosis for this admission?: Yes Plan: WBC elevated. HGB mildly decreased and stable. No evidence of active bleeding. No indication for blood transfusion. PLT are also mildly decreased, but should be good enough for a biopsy at current level. - Time Time Spent with patient: 15-24 minutes - Plan Summary Plan Summary: Patient was discussed with Dr. Whitley.
[2020-04-27] MEDS ORDERED: NORMAL SALINE 250 ML IV PRN ×2 (09:58)
[2020-04-27] MEDS ORDERED: LACTULOSE SYRUP 20 GM/30 ML UDCUP PO SCH (10:00)
[2020-04-27] MEDS: PROPRANOLOL HCL 10 MG TABLET PO SCH ×2 (10:12→22:00)
[2020-04-27] MEDS ORDERED: SODIUM POLYSTYRENE SULFONATE 15 GM/60 ML PO ONE ×2 (12:30→18:30)
[2020-04-27] MEDS ORDERED: FENTANYL CITRATE INJ/PF 100 MCG/2 ML AMPUL ONE (13:15)
[2020-04-27] MEDS ORDERED: MIDAZOLAM 2 MG/2 ML INJ ONE (13:15)
--- NOTE | 2020-04-27 14:11 | RADIOLOGY REPORT (SQ) ---
EXAM DESCRIPTION: CT BIOPSY LIVER; CT NEEDLE PLACEMENT IMAGES COMPLETED DATE/TIME: 04/27/2020 1:44 pm REASON FOR STUDY: liver masses; LIVER BIOPSY COMPARISON: None. TECHNIQUE: After obtaining informed consent and explaining the risks and benefits of conscious sedat ion,the patient agreed to the procedure. The patient was brought to the CT suite and was placed supin e on the CT gurney. The patient was prepped and draped in the usual sterile fashion. Axial images we re obtained for targeting of theleft lobe. An appropriate access site was selected. IV conscious stas tion was administered and physician direction by the registered nurse using 0.5 milligrams of Versed and 25 micrograms of fentanyl. Physiologic monitoring was provided before, during, and after sedation . The total sedation time was 30 minutes. Documentation face to face time, the performing proceduralist, spent monitoring the patient: [address] of the liver was performed to localize an approach for the targeted liver biopsy. A percutaneous site was marked. Time out was performed. After skin prep and local lidocaine for skin and deep tissue anesthesia, a coaxial biopsy needle sys tem was used to obtain several cores of tissue from the left lobe of the liver. The biopsy tract was packed with Gel-Foam. These were submitted to the lab in formalin. No immediate postprocedure com plications. Total of [address] fluoro was used. 12 CT Fluoroscopic images were obtained and saved to PACS. All CT scanners at this facility use dose modulation, iterative reconstruction, and/or weight based d osing when appropriate to reduce radiation dose to as low as reasonably achievable (ALARA). [facility]: Dose Right [facility]: CareDose [facility]: Dose Right [facility]: Teradose 4D [facility]: [employer] [place] RADIATION DOSE: CT Rad equipment meets quality standard of care and radiation dose reduction techniq ues were employed. CTDIvol: 4.0 - 20.2 mGy. DLP: 489 mGy-cm. mGy. LIMITATIONS: None. FINDINGS: CT guided liver biopsy as detailed above. IMPRESSION: CT GUIDED TARGETED LIVER BIOPSY PERFORMED ABOVE. PATHOLOGY PENDING. NO IMMEDIATE C OMPLICATIONS. COMMENT: Patient medication list reviewed:Yes- Quality ID# [id number]:Eligible professional attests to docu menting in the medical record they obtained, updated, or reviewed the patient's current medications.. Quality ID [id number]: Final reports for procedures using fluoroscopy that document radiation exposure melvin willa, or exposure time and number of fluorographic images (if radiation exposure indices are not avail able) TECHNICAL DOCUMENTATION: JOB ID: [id number] Quality ID # [id number]: Final reports with documentation of one or more dose reduction techniques (e.g., A utomated exposure control, adjustment of the mA and/or kV according to patient size, use of iterative reconstruction technique) 2010 [employer]- All Rights Reserved Reading location - IP/workstation name: [email or web address]
[2020-04-27] MEDS: CALCIUM CARBONATE 500 MG TAB.CHEW PO SCH ×3 (14:51→22:00)
[2020-04-27] MEDS: SODIUM BICARBONATE 650 MG TABLET PO SCH ×2 (14:51→17:52)
[2020-04-27] MEDS: FOLIC ACID 1 MG TABLET PO SCH (17:52)
[2020-04-27] MEDS: THIAMINE HCL 100 MG TABLET PO SCH (17:54)
[2020-04-27] MEDS: NICOTINE 21 MG/24 HR PATCH.TD24 TD SCH (17:55)
--- NOTE | 2020-04-27 19:55 | EKG REPORT ---
SEVERITY:- NORMAL ECG - SINUS RHYTHM : Confirmed by: Juliette Whalen 27-Apr-2020 19:54:07
--- NOTE | 2020-04-27 21:14 | PDOC PROGRESS REPORT ---
Subjective Progress Note for:: 04/27/20 Subjective:: NAEO. He has had no evidence of alcohol withdrawal. RUQ pain is improved. Reason For Visit: CIRRHOSIS, ASCITES, HYPONATREMIA, HYPOKALEMIA Physical Exam Vital Signs: Temp Pulse Resp BP Pulse Ox 98.5 F 95 19 107/75 94 04/27/20 19:15 04/27/20 19:15 04/27/20 19:15 04/27/20 19:15 04/27/20 19:15 Intake & Output 04/26/20 04/27/20 04/28/20 06:59 06:59 06:59 Intake Total 2121 1340 2470 Output Total 50 375 400 Balance 2071 965 2070 Weight 64.8 kg 64.8 kg General appearance: PRESENT: no acute distress, cooperative Eye exam: PRESENT: scleral icterus Mouth exam: PRESENT: moist Throat exam: ABSENT: post pharyngeal erythema Respiratory exam: PRESENT: clear to auscultation justin, unlabored Cardiovascular exam: PRESENT: RRR GI/Abdominal exam: PRESENT: ascites, normal bowel sounds, organolmegaly, soft. ABSENT: guarding, rebound, tenderness Extremities exam: ABSENT: pedal edema Musculoskeletal exam: PRESENT: ambulatory Neurological exam: PRESENT: alert, awake Psychiatric exam: PRESENT: appropriate affect Skin exam: PRESENT: jaundice. ABSENT: rash Results Laboratory Results: 04/27/20 06:35 04/27/20 14:56 04/27/20 04/27/20 04/27/20 06:35 06:35 09:23 WBC 16.7 H RBC 2.80 L Hgb 10.2 L Hct 29.5 L MCV 105 H MCH 36.5 H MCHC 34.7 RDW 16.7 H Plt Count 109 L Sodium 128.3 L Potassium 6.3 H* Cancelled Chloride 102 Carbon Dioxide 18 L Anion Gap 8 BUN 12 Creatinine 0.43 L Est GFR ( Amer) > 60 Glucose 104 Calcium 8.4 Magnesium 2.1 Blood Type Antibody Screen 04/27/20 04/27/20 10:45 14:56 WBC RBC Hgb Hct MCV MCH MCHC RDW Plt Count Sodium Potassium 4.9 D Chloride Carbon Dioxide Anion Gap BUN Creatinine Est GFR ( Amer) Glucose Calcium Magnesium Blood Type O POSITIVE Antibody Screen NEGATIVE Impressions: Abdomen MRI 04/25/20 00:00 IMPRESSION: Limitations due to motion. No evidence of biliary obstruction. Abdomen/Pelvis CT 04/25/20 00:00 IMPRESSION: Ascites and liver metastasis. No colon primary is identified. Chest CT 04/25/20 00:00 IMPRESSION: Trace right pleural effusion. No pulmonary nodules. Guidance Needle Placement CT 04/27/20 00:00 IMPRESSION: CT GUIDED TARGETED LIVER BIOPSY PERFORMED ABOVE. PATHOLOGY P ENDING. NO IMMEDIATE COMPLICATIONS. Liver Biopsy CT 04/27/20 00:00 IMPRESSION: CT GUIDED TARGETED LIVER BIOPSY PERFORMED ABOVE. PATHOLOGY PENDING. NO IMMEDIATE COMPLICATIONS. Assessment and Plan - Diagnosis (1) Hypokalemia Is this a current diagnosis for this admission?: Yes (2) Hyponatremia Is this a current diagnosis for this admission?: Yes (3) Increased ammonia level Is this a current diagnosis for this admission?: Yes (4) Liver mass Is this a current diagnosis for this admission?: Yes (5) Alcohol dependence Qualifiers: Substance use status: other alcohol-induced disorder Qualified Code(s): F10.288 - Alcohol dependence with other alcohol-induced disorder Is this a current diagnosis for this admission?: Yes (6) Tobacco dependence Is this a current diagnosis for this admission?: Yes (7) Transaminitis Is this a current diagnosis for this admission?: Yes (8) Ascites Is this a current diagnosis for this admission?: Yes (9) Neutrophilic leukocytosis Is this a current diagnosis for this admission?: Yes (10) Pancytopenia Is this a current diagnosis for this admission?: Yes (11) Cirrhosis of liver Qualifiers: Hepatic cirrhosis type: unspecified hepatic cirrhosis Ascites presence: with ascites Qualified Code(s): K74.60 - Unspecified cirrhosis of liver; R18.8 - Other ascites Is this a current diagnosis for this admission?: Yes (12) Esophageal varices in cirrhosis Is this a current diagnosis for this admission?: Yes - Plan Summary Summary: KENNETH MCCLELLAND is a 55 year old male with PMH of alcohol abuse, beer potomania with resultant hyponatremia, fatty liver disease, diverticulosis and acute alcoholic pancreatitis who presented to the ED on 04/24/2020 "to be admitted." He previously presented to the ED on 04/22/2020 with RUQ abdominal pain, anorexia, nausea and vomiting. At that time, CT A/P was notable for ascites and multiple confluent liver lesions, concerning for primary HCC versus metastases. He was also found to have hyponatremia and hypokalemia. He was going to be admitted to the hospital, but declined admission and went home instead. He returned to the ED a few days later stating that he needed time to talk to his family about his new diagnosis of cancer, and now feels emotionally prepared to address this new diagnosis head-on. He has never had upper or lower endoscopy or other cancer screening. He doesn't have health insurance or a PCP, and takes no medications. He denies recent weight loss or gain, but states that his abdomen has been steadily increasing in size over an unknown period of time. Prior to this week, he tells me that has never been told that he has liver disease of any kind, although he has had several abdominal imaging studies, the last being in 2018, which showed fatty liver infiltration and hepatomegaly. Multiple Liver Masses: concerning for HCC versus metastatic disease. - Oncology consulted - Surgery consulted, and do not feel he is a candidate for inpt colonoscopy - IR consulted and he underwent CT-guided liver biopsy on 04/27/2020 as well as 4 units of FFP. Follow up pathology results. - CT C/A/P with IV and PO contrast showed no obvious source of primary malignancy - MRCP: no evidence of hepatobiliary obstruction, but did show esophageal varices - hepatitis panel: negative - CEA: minimally elevated - AFP: normal Cirrhosis of the Liver with Ascites: unclear if this is due to longstanding al cohol abuse, ARENAS or recent onset due to liver masses. He has ascites, thrombocytopenia, hyperammonemia, varices, etc. - propranolol - pantoprazole - lactulose Neutrophilic Leukocytosis: resolved - BCx NGTD Chronic Hyponatremia: not acute and with no acute AMS, does not require rapid correction. Due to beer potomania. - correct slowly, no more than 8 mEq/24 hours - strict I/O Alcohol Abuse: With regard to his alcohol use history, he states that he is a life-long drinker. He drinks 10+ beers per day. Last drink was on about one week ago. He has no known history of alcohol withdrawal in the past. - CIWA Q4H - Ativan PRN CIWA score >7 - cessation counseling provided Tobacco Abuse: He is also a 0.5 PPD smoker. - Nicotine patch - cessation counseling provided Uninsured: CM/SW consult for Medicaid/Disability +/- referral to [facility] - Time Time Spent with patient: 35 or more minutes Anticipated Discharge Disposition: Home, Self Care Anticipated Discharge Timeframe: within 24 hours
[2020-04-27] MEDS: MELATONIN 5 MG TABLET PO SCH (22:00)
[2020-04-28] MEDS: NORMAL SALINE 1000 ML 1,000 ML IV PRN ×3 (04:33→23:54)
[2020-04-28 05:11] LABS: HEMATOCRIT 24.6 % (37.9-51.0); HEMOGLOBIN 8.7 g/dL (13.5-17.0); MEAN CORPUSCULAR HEMOGLOBIN 37.5 pg (27.0-33.4); MEAN CORPUSCULAR HGB CONC 35.4 g/dL (32.0-36.0); MEAN CORPUSCULAR VOLUME 106 fl (80-97); RED BLOOD COUNT 2.33 10^6/uL (4.35-5.55); RED CELL DISTRIBUTION WIDTH 17.7 % (11.5-14.0); WHITE BLOOD COUNT 11.2 10^3/uL (4.0-10.5)
[2020-04-28] MEDS: PANTOPRAZOLE SODIUM 40 MG TABLET.DR PO SCH ×2 (05:17→17:00)
[2020-04-28 05:27] LABS: ANION GAP 9 (5-19); BLOOD UREA NITROGEN 11 mg/dL (7-20); CALCIUM 8.7 mg/dL (8.4-10.2); CARBON DIOXIDE 20 mmol/L (22-30); CHLORIDE 103 mmol/L (98-107); GLUCOSE 101 mg/dL (75-110); POTASSIUM 4.2 mmol/L (3.6-5.0)
[2020-04-28 06:03] LABS: PLATELET COUNT 90 10^3/uL (150-450)
--- NOTE | 2020-04-28 08:24 | PDOC PROGRESS REPORT ---
Subjective Progress Note for:: 04/28/20 Subjective:: Patient without complaints. Tolerated liver biopsy yesterday. Asking for something to drink this morning. Reason For Visit: CIRRHOSIS, ASCITES, HYPONATREMIA, HYPOKALEMIA Physical Exam Vital Signs: Temp Pulse Resp BP Pulse Ox 98.4 F 102 H 16 109/73 94 04/28/20 04:00 04/28/20 04:00 04/28/20 04:00 04/28/20 04:00 04/28/20 04:00 Intake & Output 04/27/20 04/28/20 04/29/20 06:59 06:59 06:59 Intake Total 1340 4274 Output Total 375 400 Balance 965 3874 Weight 64.8 kg 72.3 kg General appearance: PRESENT: no acute distress Head exam: PRESENT: normocephalic Respiratory exam: PRESENT: unlabored GI/Abdominal exam: PRESENT: distended, soft, other - ascites. Neurological exam: PRESENT: alert, awake Psychiatric exam: PRESENT: appropriate affect Skin exam: PRESENT: jaundice Results Laboratory Results: 04/28/20 04:23 04/28/20 04:23 04/27/20 04/27/20 04/27/20 09:23 10:45 14:56 WBC RBC Hgb Hct MCV MCH MCHC RDW Plt Count Sodium Potassium Cancelled 4.9 D Chloride Carbon Dioxide Anion Gap BUN Creatinine Est GFR ( Amer) Glucose Calcium Blood Type O POSITIVE Antibody Screen NEGATIVE 04/28/20 04/28/20 04:23 04:23 WBC 11.2 H RBC 2.33 L Hgb 8.7 L Hct 24.6 L MCV 106 H MCH 37.5 H MCHC 35.4 RDW 17.7 H Plt Count 90 L Sodium 131.8 L Potassium 4.2 Chloride 103 Carbon Dioxide 20 L Anion Gap 9 BUN 11 Creatinine 0.48 L Est GFR ( Amer) > 60 Glucose 101 Calcium 8.7 Blood Type Antibody Screen Impressions: Abdomen MRI 04/25/20 00:00 IMPRESSION: Limitations due to motion. No evidence of biliary obstruction. Abdomen/Pelvis CT 04/25/20 00:00 IMPRESSION: Ascites and liver metastasis. No colon primary is identified. Chest CT 04/25/20 00:00 IMPRESSION: Trace right pleural effusion. No pulmonary nodules. Guidance Needle Placement CT 04/27/20 00:00 IMPRESSION: CT GUIDED TARGETED LIVER BIOPSY PERFORMED ABOVE. PATHOLOGY PENDING. NO IMMEDIATE COMPLICATIONS. Liver Biopsy CT 04/27/20 00:00 IMPRESSION: CT GUIDED TARGETED LIVER BIOPSY PERFORMED ABOVE. PATHOLOGY PENDING. NO IMMEDIATE COMPLICATIONS. Assessment & Plan - Diagnosis (1) Coagulopathy Is this a current diagnosis for this admission?: Yes Plan: Worsening. FFP did not help. Most likely due to end stage liver. (2) Liver mass Is this a current diagnosis for this admission?: Yes Plan: Biopsy yesterday. Await pathology. (3) Pancytopenia Is this a current diagnosis for this admission?: Yes Plan: Currently stable. Due to liver disease. HIV and Hepatits were negative. Continue to monitor. - Time Time Spent with patient: Less than 15 minutes - Plan Summary Plan Summary: I am happy to follow as outpatient to discuss biopsy results.
[2020-04-28] MEDS: CALCIUM CARBONATE 500 MG TAB.CHEW PO SCH ×4 (10:02→22:11)
[2020-04-28] MEDS: THIAMINE HCL 100 MG TABLET PO SCH (10:02)
[2020-04-28] MEDS: NICOTINE 21 MG/24 HR PATCH.TD24 TD SCH (10:02)
[2020-04-28] MEDS: FOLIC ACID 1 MG TABLET PO SCH (10:02)
[2020-04-28] MEDS: SODIUM BICARBONATE 650 MG TABLET PO SCH ×3 (10:02→17:00)
[2020-04-28] MEDS: PROPRANOLOL HCL 10 MG TABLET PO SCH ×2 (10:03→22:07)
--- NOTE | 2020-04-28 18:38 | PDOC PROGRESS REPORT ---
Subjective Subjective:: Per Previous Physician: "KENNETH MCCLELLAND is a 55 year old male with PMH of alcohol abuse, beer potomania with resultant hyponatremia, fatty liver disease, diverticulosis and acute alcoholic pancreatitis who presented to the ED on 04/24/2020 "to be admitted." He previously presented to the ED on 04/22/2020 with RUQ abdominal pain, anorexia, nausea and vomiting. At that time, CT A/P was notable for ascites and multiple confluent liver lesions, concerning for primary HCC versus metastases. He was also found to have hyponatremia and hypokalemia. He was going to be admitted to the hospital, but declined admission and went home instead. He returns today stating that he needed time to talk to his family about his new diagnosis of cancer, and now feels emotionally prepared to address this new diagnosis head-on. With regard to his alcohol use history, he states that he is a life-long drinker. He drinks 10+ beers per day. Last drink was on Monday. He has no known history of alcohol withdrawal in the past. He is also a 0.5 PPD smoker. He has never had upper or lower endoscopy or other cancer screening. He doesn't have health insurance or a PCP, and takes no medications. He denies recent weight loss or gain, but states that his abdomen has been steadily increasing in size over an unknown period of time. Prior to this week, he tells me that has never been told that he has liver disease of any kind, although he has had several abdominal imaging studies, the last being in 2018, which showed fatty liver infiltration and hepatomegaly. " 04/28/2020 Hemoglobin with acute drop down to 8.7 but no signs of bleeding. Blood culture negative. Sodium is higher at 131. Discussed with patient he must stop dri nking alcohol her will significantly impact his longevity. He states he is a bit wobbly on his feet and nursing confirms this. Physical therapy consult. He is bit tachycardic today. He has no new complaints. Reason For Visit: CIRRHOSIS, ASCITES, HYPONATREMIA, HYPOKALEMIA Physical Exam Vital Signs: Temp Pulse Resp BP Pulse Ox 98.2 F 94 18 92/58 L 94 04/28/20 15:33 04/28/20 15:33 04/28/20 15:33 04/28/20 15:33 04/28/20 15:33 Intake & Output 04/27/20 04/28/20 04/29/20 06:59 06:59 06:59 Intake Total 1340 4274 1410 Output Total 375 400 600 Balance 965 3874 810 Weight 64.8 kg 72.3 kg General appearance: PRESENT: no acute distress, well-developed, well-nourished Head exam: PRESENT: atraumatic, normocephalic Eye exam: PRESENT: conjunctiva pink Mouth exam: PRESENT: moist Respiratory exam: PRESENT: clear to auscultation justin. ABSENT: rales, rhonchi, wheezes Cardiovascular exam: PRESENT: RRR. ABSENT: diastolic murmur, rubs, systolic murmur GI/Abdominal exam: PRESENT: distended - Mild to moderate, normal bowel sounds, soft. ABSENT: guarding, mass, organolmegaly, rebound, tenderness Neurological exam: PRESENT: alert, awake, oriented to person, oriented to place, oriented to time, oriented to situation Psychiatric exam: PRESENT: appropriate affect, normal mood Skin exam: PRESENT: dry, intact, warm Results Laboratory Results: 04/28/20 04:23 04/28/20 04:23 04/27/20 04/28/20 04/28/20 10:45 04:23 04:23 WBC 11.2 H RBC 2.33 L Hgb 8.7 L Hct 24.6 L MCV 106 H MCH 37.5 H MCHC 35.4 RDW 17.7 H Plt Count 90 L Sodium 131.8 L Potassium 4.2 Chloride 103 Carbon Dioxide 20 L Anion Gap 9 BUN 11 Creatinine 0.48 L Est GFR ( Amer) > 60 Glucose 101 Calcium 8.7 Blood Type O POSITIVE Antibody Screen NEGATIVE Impressions: Abdomen MRI 04/25/20 00:00 IMPRESSION: Limitations due to motion. No evidence of biliary obstruction. Abdomen/Pelvis CT 04/25/20 00:00 IMPRESSION: Ascites and liver metastasis. No colon primary is identified. Chest CT 04/25/20 00:00 IMPRESSION: Trace right pleural effusion. No pulmonary nodules. Guidance Needle Placement CT 04/27/20 00:00 IMPRESSION: CT GUIDED TARGETED LIVER BIOPSY PERFORMED ABOVE. PATHOLOGY PENDING. NO IMMEDIATE COMPLICATIONS. Liver Biopsy CT 04/27/20 00:00 IMPRESSION: CT GUIDED TARGETED LIVER BIOPSY PERFORMED ABOVE. PATHOLOGY PENDING. NO IMMEDIATE COMPLICATIONS. Assessment and Plan - Diagnosis (1) Liver mass Is this a current diagnosis for this admission?: Yes Plan: Per Previous Physician: "Multiple Liver Masses: concerning for HCC versus metastatic disease. - Oncology consulted - Surgery consulted, and do not feel he is a candidate for inpt colonoscopy - IR consulted and he underwent CT-guided liver biopsy on 04/27/2020 as well as 4 units of FFP. Follow up pathology results. - CT C/A/P with IV and PO contrast showed no obvious source of primary malignancy - MRCP: no evidence of hepatobiliary obstruction, but did show esophageal varices - hepatitis panel: negative - CEA: minimally elevated - AFP: normal " Pathology of liver biopsy negative for malignancy, showed severe cirrhosis (2) Cirrhosis of liver Qualifiers: Hepatic cirrhosis type: unspecified hepatic cirrhosis Ascites presence: with ascites Qualified Code(s): K74.60 - Unspecified cirrhosis of liver; R18.8 - Other ascites Is this a current diagnosis for this admission?: Yes Plan: Per Previous Physician: "Cirrhosis of the Liver with Ascites: unclear if this is due to longstanding alcohol abuse, ARENAS or recent onset due to liver masses. He has ascites, thrombocytopenia, hyperammonemia, varices, etc. - propranolol - pantoprazole - lactulose " Continue above medications, stable Must stop drinking alcohol forever (3) Coagulopathy Is this a current diagnosis for this admission?: Yes Plan: Hematology/oncology consulted Given FFP (4) Esophageal varices in cirrhosis Is this a current diagnosis for this admission?: Yes Plan: Must have follow-up with GI outpatient (5) Hypokalemia Is this a current diagnosis for this admission?: Yes Plan: Repleted (6) Hyponatremia Is this a current diagnosis for this admission?: Yes Plan: Improved, resolved (7) Increased ammonia level Is this a current diagnosis for this admission?: Yes Plan: Lactulose (8) Pancytopenia Is this a current diagnosis for this admission?: Yes Plan: Hematology/oncology consulted (9) Transaminitis Is this a current diagnosis for this admission?: Yes (10) Alcohol dependence Qualifiers: Substance use status: other alcohol-induced disorder Qualified Code(s): F10.288 - Alcohol dependence with other alcohol-induced disorder Is this a current diagnosis for this admission?: Yes (11) Tobacco dependence Is this a current diagnosis for this admission?: Yes (12) Ascites Is this a current diagnosis for this admission?: Yes - Plan Summary Summary: KENNETH MCCLELLAND is a 55 year old male with PMH of alcohol abuse, beer potomania with resultant hyponatremia, fatty liver disease, diverticulosis and acute alcoholic pancreatitis who presented to the ED on 04/24/2020 "to be admitted." He previously presented to the ED on 04/22/2020 with RUQ abdominal pain, anorex ia, nausea and vomiting. At that time, CT A/P was notable for ascites and multiple confluent liver lesions, concerning for primary HCC versus metastases. He was also found to have hyponatremia and hypokalemia. He was going to be admitted to the hospital, but declined admission and went home instead. He returned to the ED a few days later stating that he needed time to talk to his family about his new diagnosis of cancer, and now feels emotionally prepared to address this new diagnosis head-on. He has never had upper or lower endoscopy or other cancer screening. He doesn't have health insurance or a PCP, and takes no medications. He denies recent weight loss or gain, but states that his abdomen has been steadily increasing in size over an unknown period of time. Prior to this week, he tells me that has never been told that he has liver disease of any kind, although he has had several abdominal imaging studies, the last being in 2018, which showed fatty liver infiltration and hepatomegaly. Multiple Liver Masses: concerning for HCC versus metastatic disease. - Oncology consulted - Surgery consulted, and do not feel he is a candidate for inpt colonoscopy - IR consulted and he underwent CT-guided liver biopsy on 04/27/2020 as well as 4 units of FFP. Follow up pathology results. - CT C/A/P with IV and PO contrast showed no obvious source of primary maligna ncy - MRCP: no evidence of hepatobiliary obstruction, but did show esophageal varices - hepatitis panel: negative - CEA: minimally elevated - AFP: normal Cirrhosis of the Liver with Ascites: unclear if this is due to longstanding alcohol abuse, ARENAS or recent onset due to liver masses. He has ascites, thrombocytopenia, hyperammonemia, varices, etc. - propranolol - pantoprazole - lactulose Neutrophilic Leukocytosis: resolved - BCx NGTD Chronic Hyponatremia: not acute and with no acute AMS, does not require rapid correction. Due to beer potomania. - correct slowly, no more than 8 mEq/24 hours - strict I/O Alcohol Abuse: With regard to his alcohol use history, he states that he is a life-long drinker. He drinks 10+ beers per day. Last drink was on about one week ago. He has no known history of alcohol withdrawal in the past. - CIWA Q4H - Ativan PRN CIWA score >7 - cessation counseling provided Tobacco Abuse: He is also a 0.5 PPD smoker. - Nicotine patch - cessation counseling provided Uninsured: CM/SW consult for Medicaid/Disability +/- referral to [facility] - Time Time Spent with patient: 15-24 minutes Medications reviewed and adjusted accordingly: Yes Anticipated Discharge Disposition: Home with Home Health Anticipated Discharge Timeframe: within 24 hours - Inpatient Certification Based on my medical assessment, after consideration of the patient's comorbidit ies, presenting symptoms, or acuity I expect that the services needed warrant INPATIENT care.: Yes I certify that my determination is in accordance with my understanding of [place]'s requirements for reasonable and necessary INPATIENT services [42 CFR 412.3e].: Yes Medical Necessity: Significant Comorbidiites Make Outpatient Treatment Too Risky, Need Close Monitoring Due to Risk of Patient Decompensation, Risk of Complication if Not Cared For in Hospital, Risk of Diagnosis Which Will Require Inpatient Eval/Care/Monitoring
[2020-04-28] MEDS: MELATONIN 5 MG TABLET PO SCH (22:10)
[2020-04-28] MEDS: ACETAMINOPHEN 325 MG TABLET PO PRN (22:10)
[2020-04-29 05:19] LABS: HEMATOCRIT 25.7 % (37.9-51.0); HEMOGLOBIN 9.1 g/dL (13.5-17.0); MEAN CORPUSCULAR HEMOGLOBIN 37.7 pg (27.0-33.4); MEAN CORPUSCULAR HGB CONC 35.3 g/dL (32.0-36.0); MEAN CORPUSCULAR VOLUME 107 fl (80-97); PLATELET COUNT 108 10^3/uL (150-450); RED BLOOD COUNT 2.41 10^6/uL (4.35-5.55); RED CELL DISTRIBUTION WIDTH 18.2 % (11.5-14.0); WHITE BLOOD COUNT 10.1 10^3/uL (4.0-10.5)
[2020-04-29 05:38] LABS: ANION GAP 9 (5-19); BLOOD UREA NITROGEN 10 mg/dL (7-20); CALCIUM 8.3 mg/dL (8.4-10.2); CARBON DIOXIDE 21 mmol/L (22-30); CHLORIDE 102 mmol/L (98-107); GLUCOSE 129 mg/dL (75-110); POTASSIUM 3.9 mmol/L (3.6-5.0)
[2020-04-29] MEDS: PANTOPRAZOLE SODIUM 40 MG TABLET.DR PO SCH (06:05)
--- NOTE | 2020-04-29 08:10 | PDOC PROGRESS REPORT ---
Subjective Progress Note for:: 04/29/20 Subjective:: Patient states that he is feeling good today and is anxious to go home. He misses his dogs. He states that he is not having any pain. He is able to eat well. He is getting up ambulating some. Reason For Visit: CIRRHOSIS, ASCITES, HYPONATREMIA, HYPOKALEMIA Physical Exam Vital Signs: Temp Pulse Resp BP Pulse Ox 98.8 F 87 19 86/51 L 91 L 04/29/20 03:35 04/29/20 03:35 04/29/20 03:35 04/29/20 03:35 04/29/20 03:35 Intake & Output 04/28/20 04/29/20 04/30/20 06:59 06:59 06:59 Intake Total 4274 3480 Output Total 400 600 Balance 3874 2880 Weight 72.3 kg 76 kg General appearance: PRESENT: no acute distress Head exam: PRESENT: normocephalic Eye exam: PRESENT: EOMI Respiratory exam: PRESENT: unlabored Musculoskeletal exam: PRESENT: normal inspection Neurological exam: PRESENT: alert, awake Skin exam: PRESENT: normal color Results Laboratory Results: 04/29/20 04:57 04/29/20 04:57 04/29/20 04/29/20 04:57 04:57 WBC 10.1 RBC 2.41 L Hgb 9.1 L Hct 25.7 L MCV 107 H MCH 37.7 H MCHC 35.3 RDW 18.2 H Plt Count 108 L Sodium 132.1 L Potassium 3.9 Chloride 102 Carbon Dioxide 21 L Anion Gap 9 BUN 10 Creatinine 0.52 Est GFR ( Amer) > 60 Glucose 129 H Calcium 8.3 L Impressions: Abdomen MRI 04/25/20 00:00 IMPRESSION: Limitations due to motion. No evidence of biliary obstruction. Abdomen/Pelvis CT 04/25/20 00:00 IMPRESSION: Ascites and liver metastasis. No colon primary is identified. Chest CT 04/25/20 00:00 IMPRESSION: Trace right pleural effusion. No pulmonary nodules. Guidance Needle Placement CT 04/27/20 00:00 IMPRESSION: CT GUIDED TARGETED LIVER BIOPSY PERFORMED ABOVE. PATHOLOGY PENDING. NO IMMEDIATE COMPLICATIONS. Liver Biopsy CT 04/27/20 00:00 IMPRESSION: CT GUIDED TARGETED LIVER BIOPSY PERFORMED ABOVE. PATHOLOGY PENDING. NO IMMEDIATE COMPLICATIONS. Assessment & Plan - Diagnosis (1) Coagulopathy Is this a current diagnosis for this admission?: Yes Plan: Due to Liver dysfunction. No evidence of active bleeding. (2) Liver mass Is this a current diagnosis for this admission?: Yes Plan: I discussed biopsy report with patient. There is no evidence of cancer. This appears to be chronic liver failure only. (3) Pancytopenia Is this a current diagnosis for this admission?: Yes Plan: WBC normal, but mild anemia and thrombocytopenia continue due to the underlying liver disease. - Time Time Spent with patient: Less than 15 minutes - Plan Summary Plan Summary: Patient stable for discharge from my standpoint. I will be happy to follow him as outpatient as needed for the blood counts and bleeding risk. Otherwise, I will sign off.
[2020-04-29] MEDS: SODIUM BICARBONATE 650 MG TABLET PO SCH ×3 (08:15→15:40)
[2020-04-29] MEDS: CALCIUM CARBONATE 500 MG TAB.CHEW PO SCH ×2 (08:15→11:53)
[2020-04-29] MEDS: PROPRANOLOL HCL 10 MG TABLET PO SCH (09:12)
[2020-04-29] MEDS: NICOTINE 21 MG/24 HR PATCH.TD24 TD SCH (09:13)
[2020-04-29] MEDS: THIAMINE HCL 100 MG TABLET PO SCH (09:14)
[2020-04-29] MEDS: FOLIC ACID 1 MG TABLET PO SCH (09:14)
[2020-04-29 15:30] VITALS: BP 109/73
--- NOTE | 2020-04-29 17:37 | PDOC DISCHARGE SUMMARY ---
Impression - Admit/DC Date/PCP Admission Date/Primary Care Provider: 04/24/20 13:28 Discharge Date: 04/29/20 - Discharge Diagnosis (1) Liver mass Is this a current diagnosis for this admission?: Yes (2) Cirrhosis of liver Is this a current diagnosis for this admission?: Yes (3) Coagulopathy Is this a current diagnosis for this admission?: Yes (4) Esophageal varices in cirrhosis Is this a current diagnosis for this admission?: Yes (5) Hypokalemia Is this a current diagnosis for this admission?: Yes (6) Hyponatremia Is this a current diagnosis for this admission?: Yes (7) Increased ammonia level Is this a current diagnosis for this admission?: Yes (8) Pancytopenia Is this a current diagnosis for this admission?: Yes (9) Transaminitis Is this a current diagnosis for this admission?: Yes (10) Alcohol dependence Is this a current diagnosis for this admission?: Yes (11) Tobacco dependence Is this a current diagnosis for this admission?: Yes (12) Ascites Is this a current diagnosis for this admission?: Yes - Assessment Summary: KENNETH MCCLELLAND is a 55 year old male with PMH of alcohol abuse, beer potomania with resultant hyponatremia, fatty liver disease, diverticulosis and acute alcoholic pancreatitis who presented to the ED on 04/24/2020 "to be admitted." He previously presented to the ED on 04/22/2020 with RUQ abdominal pain, anorexia, nausea and vomiting. At that time, CT A/P was notable for ascites and multiple confluent liver lesions, concerning for primary HCC versus metastases. He was also found to have hyponatremia and hypokalemia. He was going to be admitted to the hospital, but declined admission and went home instead. He returned to the ED a few days later stating that he needed time to talk to his family about his new diagnosis of cancer, and now feels emotionally prepared to address this new diagnosis head-on. He has never had upper or lower endoscopy or other cancer screening. He doesn't have health insurance or a PCP, and takes no medications. He denies recent weight loss or gain, but states that his abdomen has been steadily increasing in size over an unknown period of time. Prior to this week, he tells me that has never been told that he has liver disease of any kind, although he has had several abdominal imaging studies, the last being in 2018, which showed fatty liver infiltration and hepatomegaly. Multiple Liver Masses: concerning for HCC versus metastatic disease. - Oncology consulted - Surgery consulted, and do not feel he is a candidate for inpt colonoscopy - IR consulted and he underwent CT-guided liver biopsy on 04/27/2020 as well as 4 units of FFP. Follow up pathology results. - CT C/A/P with IV and PO contrast showed no obvious source of primary malignancy - MRCP: no evidence of hepatobiliary obstruction, but did show esophageal varices - hepatitis panel: negative - CEA: minimally elevated - AFP: normal Cirrhosis of the Liver with Ascites: unclear if this is due to longstanding alcohol abuse, ARENAS or recent onset due to liver masses. He has ascites, thrombocytopenia, hyperammonemia, varices, etc. - propranolol - pantoprazole - lactulose Neutrophilic Leukocytosis: resolved - BCx NGTD Chronic Hyponatremia: not acute and with no acute AMS, does not require rapid correction. Due to beer potomania. - correct slowly, no more than 8 mEq/24 hours - strict I/O Alcohol Abuse: With regard to his alcohol use history, he states that he is a life-long drinker. He drinks 10+ beers per day. Last drink was on about one week ago. He has no known history of alcohol withdrawal in the past. - CIWA Q4H - Ativan PRN CIWA score >7 - cessation counseling provided Tobacco Abuse: He is also a 0.5 PPD smoker. - Nicotine patch - cessation counseling provided Uninsured: CM/SW consult for Medicaid/Disability +/- referral to [facility] - Additional Information Resuscitation Status: Full Code Discharge Diet: As Tolerated, Regular Discharge Activity: Activity As Tolerated, Balance Activity w/Rest Referrals: [facility] [Outside] SRI WOODARD MD [ACTIVE STAFF] - (as needed for thrombocytopenia and coagulopathy due to liver disease. ) Prescriptions: Folic Acid [Folvite 1 mg Tablet] 1 mg PO DAILY #30 tablet Propranolol HCl [Inderal 10 mg Tablet] 10 mg PO Q12 #60 tablet Lactulose [Kristalose 10 gm Packet] 10 gm PO DAILY #30 packet Nicotine [Nicoderm 21 mg/24 Hr Transderm Patch] 1 each TD DAILY 30 Days patch.td24 Pantoprazole Sodium [Protonix [address] Tablet] 40 mg PO DAILY #30 tablet.dr Sodium Bicarbonate [Sodium Bicarbonate 650 mg Tablet] 650 mg PO AC #90 tablet Thiamine HCl [Thiamine 100 mg Tablet] 100 mg PO DAILY #30 tablet Calcium Carbonate [Tums Chewable 500 mg Tab.chew] 500 mg PO MEALSHS #30 tab.chew Home Medications: Calcium Carbonate [Tums Chewable 500 mg Tab.chew] 500 mg PO MEALSHS #30 tab.chew 04/29/20 Folic Acid [Folvite 1 mg Tablet] 1 mg PO DAILY #30 tablet 04/29/20 Lactulose [Kristalose 10 gm Packet] 10 gm PO DAILY #30 packet 04/29/20 Nicotine [Nicoderm 21 mg/24 Hr Transderm Patch] 1 each TD DAILY 30 Days patch.td24 04/29/20 Pantoprazole Sodium [Protonix [address] Tablet] 40 mg PO DAILY #30 tablet.dr 04/29/20 Propranolol HCl [Inderal 10 mg Tablet] 10 mg PO Q12 #60 tablet 04/29/20 Sodium Bicarbonate [Sodium Bicarbonate 650 mg Tablet] 650 mg PO AC #90 tablet 04/29/20 Thiamine HCl [Thiamine 100 mg Tablet] 100 mg PO DAILY #30 tablet 04/29/20 History of Present Illiness History of Present Illness: KENNETH MCCLELLAND is a 55 year old male Per Previous Physician: "KENNETH MCCLELLAND is a 55 year old male with PMH of alcohol abuse, beer potomania with resultant hyponatremia, fatty liver disease, diverticulosis and acute alcoholic pancreatitis who presented to the ED on 04/24/2020 "to be admitted." He previously presented to the ED on 04/22/2020 with RUQ abdominal pain, anorexia, nausea and vomiting. At that time, CT A/P was notable for ascites and multiple confluent liver lesions, concerning for primary HCC versus metastases. He was also found to have hyponatremia and hypokalemia. He was going to be admitted to the hospital, but declined admission and went home instead. He r eturns today stating that he needed time to talk to his family about his new diagnosis of cancer, and now feels emotionally prepared to address this new diagnosis head-on. With regard to his alcohol use history, he states that he is a life-long drinker. He drinks 10+ beers per day. Last drink was on Monday. He has no known history of alcohol withdrawal in the past. He is also a 0.5 PPD smoker. He has never had upper or lower endoscopy or other cancer screening. He doesn't have health insurance or a PCP, and takes no medications. He denies recent weight loss or gain, but states that his abdomen has been steadily increasing in size over an unknown period of time. Prior to this week, he tells me that has never been told that he has liver disease of any kind, although he has had several abdominal imaging studies, the last being in 2018, which showed fatty liver infiltration and hepatomegaly. " Hospital Course Hospital Course: Per Previous Physician: "KENNETH MCCLELLAND is a 55 year old male with PMH of alcohol abuse, beer potomania with resultant hyponatremia, fatty liver disease, diverticulosis and acute alcoholic pancreatitis who presented to the ED on 04/24/2020 "to be admitted." He previously presented to the ED on 04/22/2020 with RUQ abdominal pain, anorexia, nausea and vomiting. At that time, CT A/P was notable for ascites and multiple confluent liver lesions, concerning for primary HCC versus metastases. He was also found to have hyponatremia and hypokalemia. He was going to be admitted to the hospital, but declined admission and went home instead. He returns today stating that he needed time to talk to his family about his new diagnosis of cancer, and now feels emotionally prepared to address this new diagnosis head-on. With regard to his alcohol use history, he states that he is a life-long drinker. He drinks 10+ beers per day. Last drink was on Monday. He has no known history of alcohol withdrawal in the past. He is also a 0.5 PPD smoker. He has never had upper or lower endoscopy or other cancer screening. He doesn't have health insurance or a PCP, and takes no medications. He denies recent weight loss or gain, but states that his abdomen has been steadily increasing in size over an unknown period of time. Prior to this week, he tells me that has never been told that he has liver disease of any kind, although he has had several abdominal imaging studies, the last being in 2018, which showed fatty liver infiltration and hepatomegaly. " 04/28/2020 Hemoglobin with acute drop down to 8.7 but no signs of bleeding. Blood culture negative. Sodium is higher at 131. Discussed with patient he must stop drinking alcohol her will significantly impact his longevity. He states he is a bit wobbly on his feet and nursing confirms this. Physical therapy consult. He is bit tachycardic today. He has no new complaints. 04/29-day of discharge hematology stated patient can be discharged from their perspective. Patient states he would very much like to go home he feels back to normal. He was counseled extensively on not drinking alcohol for the remainder of his life as he already has severe cirrhosis. He states he has friends and family who live next to his home and they will come and help him and take care of him as he needs it. Blood cultures were negative. He must follow-up with a PCP and GI and patient agrees to arrange these appointments. - Diagnosis (1) Liver mass Is this a current diagnosis for this admission?: Yes Plan: Per Previous Physician: "Multiple Liver Masses: concerning for HCC versus metastatic disease. - Oncology consulted - Surgery consulted, and do not feel he is a candidate for inpt colonoscopy - IR consulted and he underwent CT-guided liver biopsy on 04/27/2020 as well as 4 units of FFP. Follow up pathology results. - CT C/A/P with IV and PO contrast showed no obvious source of primary malignancy - MRCP: no evidence of hepatobiliary obstruction, but did show esophageal varices - hepatitis panel: negative - CEA: minimally elevated - AFP: normal " Pathology of liver biopsy negative for malignancy, showed severe cirrhosis (2) Cirrhosis of liver Qualifiers: Hepatic cirrhosis type: unspecified hepatic cirrhosis Ascites presence: with ascites Qualified Code(s): K74.60 - Unspecified cirrhosis of liver; R18.8 - Other ascites Is this a current diagnosis for this admission?: Yes Plan: Per Previous Physician: "Cirrhosis of the Liver with Ascites: unclear if this is due to longstanding alcohol abuse, ARENAS or recent onset due to liver masses. He has ascites, thrombocytopenia, hyperammonemia, varices, etc. - propranolol - pantoprazole - lactulose " Continue above medications, stable Must stop drinking alcohol forever (3) Coagulopathy Is this a current diagnosis for this admission?: Yes Plan: Hematology/oncology consulted Given FFP (4) Esophageal varices in cirrhosis Is this a current diagnosis for this admission?: Yes Plan: Must have follow-up with GI outpatient (5) Hypokalemia Is this a current diagnosis for this admission?: Yes Plan: Repleted (6) Hyponatremia Is this a current diagnosis for this admission?: Yes Plan: Improved, resolved (7) Increased ammonia level Is this a current diagnosis for this admission?: Yes Plan: Lactulose (8) Pancytopenia Is this a current diagnosis for this admission?: Yes Plan: Hematology/oncology consulted: Stated patient can be discharged from their perspective (9) Transaminitis Is this a current diagnosis for this admission?: Yes (10) Alcohol dependence Qualifiers: Substance use status: other alcohol-induced disorder Qualified Code(s): F10.288 - Alcohol dependence with other alcohol-induced disorder Is this a current diagnosis for this admission?: Yes (11) Tobacco dependence Is this a current diagnosis for this admission?: Yes (12) Ascites Is this a current diagnosis for this admission?: Yes Physical Exam Vital Signs: Temp Pulse Resp BP Pulse Ox 98.2 F 91 16 109/73 96 04/29/20 15:26 04/29/20 15:26 04/29/20 15:26 04/29/20 15:26 04/29/20 15:26 Intake & Output 04/28/20 04/29/20 04/30/20 06:59 06:59 06:59 Intake Total 4274 3480 1408 Output Total 400 600 Balance 3874 2880 1408 Weight 72.3 kg 76 kg Exam: General appearance: PRESENT: no acute distress, well-developed, well-nourished Head exam: PRESENT: atraumatic, normocephalic Eye exam: PRESENT: conjunctiva pink. ABSENT: scleral icterus Mouth exam: PRESENT: moist Respiratory exam: PRESENT: clear to auscultation justin. ABSENT: rales, rhonchi, wheezes Cardiovascular exam: PRESENT: RRR. ABSENT: diastolic murmur, rubs, systolic murmur GI/Abdominal exam: PRESENT: normal bowel sounds, soft. ABSENT: distended, guarding, mass, organolmegaly, rebound, tenderness Neurological exam: PRESENT: alert, awake, oriented to person, oriented to place, oriented to time, oriented to situation Psychiatric exam: PRESENT: appropriate affect, normal mood Skin exam: PRESENT: dry, intact, warm Results Laboratory Results: WBC 10.1 10^3/uL (4.0-10.5) 04/29/20 04:57 RBC 2.41 10^6/uL (4.35-5.55) L 04/29/20 04:57 Hgb 9.1 g/dL (13.5-17.0) L 04/29/20 04:57 Hct 25.7 % (37.9-51.0) L 04/29/20 04:57 MCV 107 fl (80-97) H 04/29/20 04:57 MCH 37.7 pg (27.0-33.4) H 04/29/20 04:57 MCHC 35.3 g/dL (32.0-36.0) 04/29/20 04:57 RDW 18.2 % (11.5-14.0) H 04/29/20 04:57 Plt Count 108 10^3/uL (150-450) L 04/29/20 04:57 Lymph % (Auto) 5.3 % (13-45) L 04/24/20 10:35 [place] % (Auto) 8.6 % (3-13) 04/24/20 10:35 Eos % (Auto) 0.1 % (0-6) 04/24/20 10:35 Baso % (Auto) 0.2 % (0-2) 04/24/20 10:35 Reticulocyte # 0.069 10^6/uL (0.028-0.122) 04/25/20 05:21 Absolute Neuts (auto) 13.0 10^3/uL (1.7-8.2) H 04/24/20 10:35 Absolute Lymphs (auto) 0.8 10^3/uL (0.5-4.7) 04/24/20 10:35 Absolute Monos (auto) 1.3 10^3/uL (0.1-1.4) 04/24/20 10:35 Absolute Eos (auto) 0.0 10^3/uL (0.0-0.6) 04/24/20 10:35 Absolute Basos (auto) 0.0 10^3/uL (0.0-0.2) 04/24/20 10:35 Total Counted Cancelled 04/24/20 09:21 Seg Neutrophils % 85.8 % (42-78) H 04/24/20 10:35 Seg Neuts % (Manual) Cancelled 04/24/20 09:21 Band Neutrophils % Cancelled 04/24/20 09:21 Lymphocytes % (Manual) Cancelled 04/24/20 09:21 Atypical Lymphs % Cancelled 04/24/20 09:21 Monocytes % (Manual) Cancelled 04/24/20 09:21 Eosinophils % (Manual) Cancelled 04/24/20 09:21 Basophils % (Manual) Cancelled 04/24/20 09:21 Metamyelocytes % Cancelled 04/24/20 09:21 Myelocytes % Cancelled 04/24/20 09:21 Promyelocytes % Cancelled 04/24/20 09:21 Immature Leukocytes % Cancelled 04/24/20 09:21 Abs Neuts (Manual) Cancelled 04/24/20 09:21 Abs Lymphs (Manual) Cancelled 04/24/20 09:21 Abs Monocytes (Manual) Cancelled 04/24/20 09:21 Absolute Eos (Manual) Cancelled 04/24/20 09:21 Abs Basophils (Manual) Cancelled 04/24/20 09:21 Nucleated RBCs Cancelled 04/24/20 09:21 Differential Comment Cancelled 04/24/20 09:21 Hypersegmented Neuts Cancelled 04/24/20 09:21 Smudge Cells Cancelled 04/24/20 09:21 Toxic Granulation Cancelled 04/24/20 09:21 Toxic Vacuolation Cancelled 04/24/20 09:21 Dohle Bodies Cancelled 04/24/20 09:21 Sergio Rods Cancelled 04/24/20 09:21 WBC Morphology Comment Cancelled 04/24/20 09:21 Platelet Estimate Cancelled 04/24/20 09:21 Clumped Platelets Cancelled 04/24/20 09:21 Large Platelets Cancelled 04/24/20 09:21 Giant Platelets Cancelled 04/24/20 09:21 Platelet Comment Cancelled 04/24/20 09:21 Polychromasia Cancelled 04/24/20 09:21 Hypochromasia Cancelled 04/24/20 09:21 Poikilocytosis Cancelled 04/24/20 09:21 Basophilic Stippling Cancelled 04/24/20 09:21 Anisocytosis Cancelled 04/24/20 09:21 Microcytosis Cancelled 04/24/20 09:21 Macrocytosis Cancelled 04/24/20 09:21 Spherocytes Cancelled 04/24/20 09:21 Pappenheimer Bodies Cancelled 04/24/20 09:21 Sickle Cells Cancelled 04/24/20 09:21 Target Cells Cancelled 04/24/20 09:21 Tear Drop Cells Cancelled 04/24/20 09:21 Ovalocytes Cancelled 04/24/20 09:21 Stomatocytes Cancelled 04/24/20 09:21 Helmet Cells Cancelled 04/24/20 09:21 [place] Bodies Cancelled 04/24/20 09:21 Mohall Cells Cancelled 04/24/20 09:21 Acanthocytes (Spur) Cancelled 04/24/20 09:21 Rouleaux Cancelled 04/24/20 09:21 Schistocytes Cancelled 04/24/20 09:21 RBC Morph Comment Cancelled 04/24/20 09:21 Retic Count (auto) 2.70 % (0.66-2.85) 04/25/20 05:21 PT 22.0 SEC (11.4-15.4) H 04/27/20 06:35 INR 1.91 04/27/20 06:35 APTT 52.6 SEC (23.5-35.8) H 04/27/20 06:35 Sodium 132.1 mmol/L (137-145) L 04/29/20 04:57 Potassium 3.9 mmol/L (3.6-5.0) 04/29/20 04:57 Chloride 102 mmol/L (98-107) 04/29/20 04:57 Carbon Dioxide 21 mmol/L (22-30) L 04/29/20 04:57 Anion Gap 9 (5-19) 04/29/20 04:57 BUN 10 mg/dL (7-20) 04/29/20 04:57 Creatinine 0.52 mg/dL (0.52-1.25) 04/29/20 04:57 Est GFR ( Amer) > 60 (>60) 04/29/20 04:57 Est GFR (MDRD) Non-Af > 60 (>60) 04/29/20 04:57 Glucose 129 mg/dL (75-110) H 04/29/20 04:57 Calcium 8.3 mg/dL (8.4-10.2) L 04/29/20 04:57 Magnesium 2.1 mg/dL (1.6-2.3) 04/27/20 06:35 Iron 93.8 ug/dL (49-181) 04/25/20 05:21 TIBC 156 ug/dL (250-450) L 04/25/20 05:21 % Saturation 60 % 04/25/20 05:21 Ferritin 5700.00 ng/mL (17.9-464.0) H 04/25/20 05:21 Total Bilirubin 10.4 mg/dL (0.2-1.3) H 04/26/20 05:24 Direct Bilirubin 8.6 mg/dL (0.0-0.4) H 04/26/20 05:24 Neonat Total Bilirubin Not Reportable 04/26/20 05:24 Neonat Direct Bilirubin Not Reportable 04/26/20 05:24 Neonat Indirect Bili Not Reportable 04/26/20 05:24 AST 216 U/L (17-59) H 04/26/20 05:24 ALT 50 U/L (<50) 04/26/20 05:24 Alkaline Phosphatase 259 U/L (38-126) H 04/26/20 05:24 Ammonia 32.9 umol/L (9-33) 04/26/20 11:46 Total Protein 6.0 g/dL (6.3-8.2) L 04/26/20 05:24 Albumin 2.5 g/dL (3.5-5.0) L 04/26/20 05:24 Tumor Marker AFP 6.5 ng/mL (0.0-8.3) 04/24/20 18:31 Carcinoembryonic Ag 12.70 ng/mL (<3.0) H 04/24/20 18:31 Vitamin B12 > 1000.0 pg/mL (239-931) H 04/25/20 05:21 Folate 4.71 ng/mL (>2.76) 04/25/20 05:21 Urine Color EVER 04/24/20 09:21 Urine Appearance SLIGHTLY-CLOUDY 04/24/20 09:21 Urine pH 5.0 (5.0-9.0) 04/24/20 09:21 Ur Specific [place] 1.023 04/24/20 09:21 Urine Protein 100 mg/dL (NEGATIVE) H 04/24/20 09:21 Urine Glucose (UA) NEGATIVE mg/dL (NEGATIVE) 04/24/20 09:21 Urine Ketones TRACE mg/dL (NEGATIVE) H 04/24/20 09:21 Urine Blood SMALL (NEGATIVE) H 04/24/20 09:21 Urine Nitrite NEGATIVE (NEGATIVE) 04/24/20 09:21 Urine Bilirubin MODERATE (NEGATIVE) H 04/24/20 09:21 Urine Urobilinogen 4.0 mg/dL (<2.0) H 04/24/20 09:21 Ur Leukocyte Esterase NEGATIVE (NEGATIVE) 04/24/20 09:21 Urine WBC (Auto) 6 /HPF 04/24/20 09:21 Urine RBC (Auto) 5 /HPF 04/24/20 09:21 U Hyaline Cast (Auto) 16 /LPF 04/24/20 09:21 Squamous Epi Cells Auto <1 /HPF 04/24/20 09:21 Urine Mucus (Auto) MANY /LPF 04/24/20 09:21 Urine Ascorbic Acid NEGATIVE (NEGATIVE) 04/24/20 09:21 Serum Alcohol < 10 mg/dL (NONE DETECTED) 04/24/20 09:21 Hepatitis A IgM Ab Negative (Negative) 04/24/20 18:31 Hep Bs Antigen Negative (Negative) 04/24/20 18:31 Hep B Core IgM Ab Negative (Negative) 04/24/20 18:31 Hepatitis C Antibody <0.1 s/co ratio (0.0-0.9) 04/24/20 18:31 HIV 1&2 Antibody NEGATIVE (NEGATIVE) 04/24/20 18:31 SARS-CoV-2 (PCR) NEGATIVE (NEGATIVE) 04/25/20 15:30 Slides for Path Review Cancelled 04/24/20 09:21 Blood Type O POSITIVE 04/27/20 10:45 Antibody Screen NEGATIVE 04/27/20 10:45 Impressions: Abdomen MRI 04/25/20 00:00 IMPRESSION: Limitations due to motion. No evidence of biliary obstruction. Abdomen/Pelvis CT 04/25/20 00:00 IMPRESSION: Ascites and liver metastasis. No colon primary is identified. Chest CT 04/25/20 00:00 IMPRESSION: Trace right pleural effusion. No pulmonary nodules. Guidance Needle Placement CT 04/27/20 00:00 IMPRESSION: CT GUIDED TARGETED LIVER BIOPSY PERFORMED ABOVE. PATHOLOGY PENDING. NO IMMEDIATE COMPLICATIONS. Liver Biopsy CT 10/12/20 00:00 IMPRESSION: CT GUIDED TARGETED LIVER BIOPSY PERFORMED ABOVE. PATHOLOGY PENDING. NO IMMEDIATE COMPLICATIONS. Plan Plan of Treatment: Follow-up with PCP Follow-up with GI Follow-up with psychiatry Time Spent: Greater than 30 Minutes Stroke Is this a Stroke Patient?: No Acute Heart Failure Is this a Heart Failure Patient?: No
== END 2020-04-29 15:58 | disposition home health service (06) ==
LOC: ER 07:12 → EH 13:28 → 5 17:27
PROVIDERS: ADMIT Hospitalist; ATTEND Internal Medicine
DX: K76.0 Fatty (change of) liver, not elsewhere classified (principal); E83.19 Other disorders of iron metabolism; K72.90 Hepatic failure, unspecified without coma; K74.60 Unspecified cirrhosis of liver; I85.10 Secondary esophageal varices without bleeding; D68.9 Coagulation defect, unspecified; E87.6 Hypokalemia; F10.288 Alcohol dependence with other alcohol-induced disorder; E87.1 Hypo-osmolality and hyponatremia; D61.818 Other pancytopenia; R74.01 Elevation of levels of liver transaminase levels; R18.8 Other ascites; D72.828 Other elevated white blood cell count; Z23 Encounter for immunization; E72.20 Disorder of urea cycle metabolism, unspecified; R26.81 Unsteadiness on feet; M62.81 Muscle weakness (generalized); R63.0 Anorexia; F17.210 Nicotine dependence, cigarettes, uncomplicated; K85.20 Alcohol induced acute pancreatitis without necrosis or infection; E46 Unspecified protein-calorie malnutrition; E80.6 Other disorders of bilirubin metabolism; K57.90 Diverticulosis of intestine, part unspecified, without perforation or abscess without bleeding; R00.0 Tachycardia, unspecified; Z03.818 Encounter for observation for suspected exposure to other biological agents ruled out; Z59.7 Insufficient social insurance and welfare support
CPT/HCPCS: 99285; 96361; 96374; 96375; 86900; 86901; 36415 ×6; 87040; 36430; 86850; 80307; 82140 ×2; 82607; 82378; 82728; 82746; 83540; 83550; 83735 ×3; 84132; 85025; 85027 ×5; 85610 ×2; 85730 ×2; 87635; 85045; 80076 ×3; 80048 ×6; 81001; 86701; 82105; 80074; 88342 ×2; 88305 ×2; 88313 ×2; 74181; 71260; 74177; 77012; 47000; 90686; 93005; 93010; 97116; 97161; G0378 ×6; G0008; P9017 ×2; J2250; J0690 ×3; J3010; J3490 ×17; J2405; J3480 ×3; J7060 ×3; J7030 ×4; S0028; C9803; 90471

== ENCOUNTER 2020-05-11 10:11 | Inpatient (IN) | payer SELFPAY ==
--- NOTE | 2020-05-11 10:48 | ER Document Report ---
ED Medical Screen (RME) - General Chief Complaint: Swelling Stated Complaint: SWELLING/BACK PAIN/DIAHERRA/SOB/WEIGHT GAIN Time Seen by Provider: 05/11/20 10:40 Mode of Arrival: Ambulatory Information source: Patient Notes: Patient presents complaining of swelling to the abdomen and lower extremities. Patient complains of lower back pain as well with dark urine. Patient states he has gained 30 pounds in 4 days. Patient poor historian although review of patient's records demonstrates he does have a history of cirrhosis with a liver mass. Patient is jaundiced at this time. I have greeted and performed a rapid initial assessment of this patient. A comprehensive ED assessment and evaluation of the patient, analysis of test results and completion of the medical decision making process will be conducted by additional ED providers. TRAVEL OUTSIDE OF THE [place] IN LAST 30 DAYS: No - Related Data Allergies/Adverse Reactions: No Known Allergies Allergy (Verified 04/22/20 12:23) Past Medical History Renal/ Medical History: Denies: Hx Peritoneal Dialysis Psychiatric Medical History: Denies: Hx Depression - Immunizations Hx Diphtheria, Pertussis, Tetanus Vaccination: No Physical Exam - Vital signs Vitals: Temp Pulse Resp BP Pulse Ox 98.2 F 77 20 120/76 98 05/11/20 10:28 05/11/20 10:28 05/11/20 10:28 05/11/20 10:28 05/11/20 10:28 - General General appearance: Alert Notes: Jaundiced, 3+ peripheral edema Course - Vital Signs Vital signs: Temp Pulse Resp BP Pulse Ox 98.2 F 77 20 120/76 98 05/11/20 10:28 05/11/20 10:28 05/11/20 10:28 05/11/20 10:28 05/11/20 10:28
[2020-05-11 11:22] LABS: INTERNATIONAL RATION (INR) 2.01; PROTHROMBIN TIME 22.8 SEC (11.4-15.4)
--- NOTE | 2020-05-11 12:09 | RADIOLOGY REPORT (SQ) ---
EXAM DESCRIPTION: CHEST SINGLE VIEW IMAGES COMPLETED DATE/TIME: 05/11/2020 12:00 pm REASON FOR STUDY: Peripheral edema COMPARISON: 04/22/2020 EXAM PARAMETERS: NUMBER OF VIEWS: One view. TECHNIQUE: Single frontal radiographic view of the chest acquired. RADIATION DOSE: NA LIMITATIONS: None. FINDINGS: LUNGS AND PLEURA: Small pleural effusions. No consolidation. No pneumothorax. MEDIASTINUM AND HILAR STRUCTURES: No masses. Contour normal. HEART AND VASCULAR STRUCTURES: Heart normal in size. Normal vasculature. BONES: No acute findings. HARDWARE: None in the chest. OTHER: No other significant finding. IMPRESSION: Small pleural effusions no other significant findings. TECHNICAL DOCUMENTATION: JOB ID: [id number] 2010 [email or web address]- All Rights Reserved Reading location - IP/workstation name: [email or web address]
--- NOTE | 2020-05-11 13:01 | EKG REPORT ---
SEVERITY:- OTHERWISE NORMAL ECG - SINUS RHYTHM LOW VOLTAGE IN FRONTAL LEADS : Confirmed by: Adair Anne MD 11-May-2020 13:00:52
[2020-05-11 13:13] LABS: ABSOLUTE BASOPHILS # (AUTO) 0.1 10^3/uL (0.0-0.2); ABSOLUTE EOSINOPHILS # (AUTO) 0.1 10^3/uL (0.0-0.6); ABSOLUTE LYMPHOCYTES (AUTO) 1.1 10^3/uL (0.5-4.7); ABSOLUTE MONOCYTES (AUTO) 1.4 10^3/uL (0.1-1.4); ABSOLUTE NEUT (AUTO) 12.2 10^3/uL (1.7-8.2); BASOPHILS % (AUTO) 0.5 % (0-2); EOSINOPHILS % (AUTO) 0.8 % (0-6); HEMATOCRIT 33.1 % (37.9-51.0); HEMOGLOBIN 11.3 g/dL (13.5-17.0); LYMPHOCYTES % (AUTO) 7.6 % (13-45); MEAN CORPUSCULAR HEMOGLOBIN 36.5 pg (27.0-33.4); MEAN CORPUSCULAR HGB CONC 34.1 g/dL (32.0-36.0); MEAN CORPUSCULAR VOLUME 107 fl (80-97); MONOCYTES % (AUTO) 9.2 % (3-13); RED BLOOD COUNT 3.09 10^6/uL (4.35-5.55); RED CELL DISTRIBUTION WIDTH 15.6 % (11.5-14.0); SEGMENTED NEUTROPHILS % (AUTO) 81.9 % (42-78); TOTAL CELLS COUNTED % (AUTO) 100 %; WHITE BLOOD COUNT 14.9 10^3/uL (4.0-10.5)
[2020-05-11 13:25] LABS: ALBUMIN 2.8 g/dL (3.5-5.0); ALKALINE PHOSPHATASE 284 U/L (38-126); ANION GAP 12 (5-19); ASPARTATE AMINO TRANSFERASE 130 U/L (17-59); BILIRUBIN,DIRECT 13.5 mg/dL (0.0-0.4); BILIRUBIN,TOTAL 15.8 mg/dL (0.2-1.3); BLOOD UREA NITROGEN 13 mg/dL (7-20); CARBON DIOXIDE 21 mmol/L (22-30); CHLORIDE 99 mmol/L (98-107); GLUCOSE 112 mg/dL (75-110); POTASSIUM 4.3 mmol/L (3.6-5.0); TOTAL PROTEIN 7.2 g/dL (6.3-8.2)
--- NOTE | 2020-05-11 13:31 | ER Document Report ---
ED General - General Chief Complaint: Swelling Stated Complaint: SWELLING/BACK PAIN/DIAHERRA/SOB/WEIGHT GAIN Time Seen by Provider: 05/11/20 10:40 Mode of Arrival: Ambulatory TRAVEL OUTSIDE OF THE [place] IN LAST 30 DAYS: No - HPI Notes: Patient is a 55-year-old male with a past medical history of liver cirrhosis who presents with lower extremity swelling extending to his abdomen. Patient states that he was recently hospitalized here. They were concerned for liver metastasis and cancer. The pathology reports came back as negative. He states that he quit drinking on April 21. Patient noticed that in the past 4 days he has gained 30 pounds. He has extensive swelling in his lower extremities traveling up to his scrotum and his abdomen. Patient states that he also has some associated back pain with this. He denies any chest pain. He does occasionally get short of breath with walking. Patient does not think he has ever had a cardiac work-up. Denies any fevers or recent illnesses. Patient states he did have some diarrhea this morning that resolved. - Related Data Allergies/Adverse Reactions: No Known Allergies Allergy (Verified 04/22/20 12:23) Past Medical History - General Information source: Patient - Social History Smoking Status: Current Every Day Smoker Family History: None, Reviewed & Not Pertinent, Arthritis Renal/ Medical History: Denies: Hx Peritoneal Dialysis Psychiatric Medical History: Denies: Hx Depression - Immunizations Hx Diphtheria, Pertussis, Tetanus Vaccination: No Review of Systems - Review of Systems Notes: CONSTITUTIONAL: No fever, fatigue or weight loss. Positive for weight gain. SKIN: No rash. HENT: No congestion, ear pain, or sore throat. EYES: No recent vision problems or eye pain. CARDIOVASCULAR: No chest pain. Positive for lower extremity edema. RESPIRATORY: No cough, shortness of breath, congestion, or wheezing. GASTROINTESTINAL: No abdominal pain, nausea, vomiting, bloody stools. Positive for diarrhea. Positive for abdominal swelling. GENITOURINARY: No dysuria. Positive for scrotal swelling. MUSCULOSKELETAL: No joint pain or swelling. NEUROLOGIC: No seizures. No headache, focal weakness or sensory changes. HEMATOLOGIC: No unusual bruising or bleeding. PSYCHIATRIC: No depression or anxiety. Physical Exam - Vital signs Vitals: Temp Pulse Resp BP Pulse Ox 98.2 F 77 20 120/76 98 05/11/20 10:28 05/11/20 10:28 05/11/20 10:28 05/11/20 10:28 05/11/20 10:28 - General General appearance: Appears well Notes: VITAL SIGNS: Within normal limits. GENERAL: No acute distress, non-toxic appearance. Jaundiced. HEAD: Normal with no signs of head trauma. EYES: EOMI, conjunctiva normal, no discharge. Scleral icterus present. EARS: Hearing grossly intact. NOSE: Normal. NECK: Normal range of motion, no tenderness, supple, no lymphadenopathy, No adenopathy, no JVD. CHEST: Clear breath sounds bilaterally. No wheezes, rales, or rhonchi. CARDIAC: Regular rate and rhythm. VASCULAR: +3 edema in the lower extremities extending to the scrotum and abdomen. ABDOMEN: No tenderness GENITOURINARY: Normal, No tenderness MUSCULOSKELETAL: Good range of motion of all major joints. Extremities without clubbing, cyanosis or edema. NEUROLOGICAL: Alert and oriented x 3. No focal sensory or strength deficits. Speech normal. Follows commands appropriately. PSYCHIATRIC: Normal Affect, judgement and mood. SKIN: Normal appearance with no rashes or lesions. Course - Re-evaluation Re-evalutation: 05/11/20 13:30 Patient has extensive lower extremity edema. He has an edematous scrotum and abdomen. Patient is not on any diuretics. Patient's work-up is concerning for increasingly elevated bilirubin. This is h igher than previous. I did obtain an ultrasound to ensure there was no obstruction. This could be due to his cirrhosis. He was given IV Lasix. He continues to be in no acute distress. I also obtain blood cultures and gave Rocephin for concern for possible SBP. He is unable to have a peritoneal sample taken now due to his coagulopathy and elevated INR. He will have to have this done with IR as an inpatient. I discussed with the hospitalist for admission and he is in agreement. 05/11/20 20:06 - Vital Signs Vital signs: Temp Pulse Resp BP Pulse Ox 99.0 F 87 18 100/66 95 05/11/20 19:52 05/11/20 19:52 05/11/20 19:52 05/11/20 19:52 05/11/20 19:52 - Laboratory Result Diagrams: 05/11/20 12:44 05/11/20 12:44 Laboratory results interpreted by me: 05/11/20 05/11/20 05/11/20 10:50 10:50 10:50 WBC RBC Hgb Hct MCV MCH RDW Lymph % (Auto) Absolute Neuts (auto) Seg Neutrophils % PT 22.8 H Sodium Carbon Dioxide Glucose Total Bilirubin Direct Bilirubin AST Alkaline Phosphatase Ammonia 45.6 H NT-Pro-B Natriuret Pep 455 H Albumin Lipase Urine Protein Urine Glucose (UA) Urine Blood Urine Bilirubin Urine Urobilinogen 05/11/20 05/11/20 05/11/20 12:44 12:44 15:19 WBC 14.9 H RBC 3.09 L Hgb 11.3 L Hct 33.1 L MCV 107 H MCH 36.5 H RDW 15.6 H Lymph % (Auto) 7.6 L Absolute Neuts (auto) 12.2 H Seg Neutrophils % 81.9 H PT Sodium 131.8 L Carbon Dioxide 21 L Glucose 112 H Total Bilirubin 15.8 H Direct Bilirubin 13.5 H AST 130 H Alkaline Phosphatase 284 H Ammonia NT-Pro-B Natriuret Pep Albumin 2.8 L Lipase < 10.0 L Urine Protein 100 H Urine Glucose (UA) 50 H Urine Blood LARGE H Urine Bilirubin MODERATE H Urine Urobilinogen 2.0 H - Diagnostic Test Radiology reviewed: Image reviewed, Reports reviewed - EKG Interpretation by Me EKG shows normal: Sinus rhythm Rate: Normal Rhythm: NSR Additional EKG results interpreted by me: 05/11/20 14:03 Sinus rhythm at a rate of 66. QTc 449. No acute ST changes. Artifact present. EKG is similar to previous. Discharge - Discharge Clinical Impression: Bilateral lower extremity edema, Anasarca, Hyperbilirubinemia, Coagulopathy, Transaminitis Leukocytosis Qualifiers: Leukocytosis type: other Qualified Code(s): D72.828 - Other elevated white blood cell count Cirrhosis of liver Qualifiers: Hepatic cirrhosis type: unspecified hepatic cirrhosis Ascites presence: with ascites Qualified Code(s): K74.60 - Unspecified cirrhosis of liver Condition: Stable Disposition: ADMITTED INPATIENT Unit Admitted: Telemetry
[2020-05-11 14:01] LABS: PLATELET COUNT 166 10^3/uL (150-450)
[2020-05-11] MEDS ORDERED: FUROSEMIDE INJ/PF 20 MG/2 ML SDV IV ONE (14:38)
[2020-05-11 16:20] LABS: APPEARANCE,URINE CLOUDY; BILIRUBIN,URINE MODERATE (NEGATIVE); GLUCOSE, URINE 50 mg/dL (NEGATIVE); KETONES,URINE NEGATIVE (NEGATIVE); LEUKOCYTE ESTERASE,URINE NEGATIVE (NEGATIVE); NITRITE,URINE NEGATIVE (NEGATIVE); PROTEIN,URINE 100 mg/dL (NEGATIVE)
[2020-05-11 16:21] LABS: COLOR,URINE BROWN
--- NOTE | 2020-05-11 17:10 | RADIOLOGY REPORT (SQ) ---
EXAM DESCRIPTION: U/S ABDOMEN LIMITED W/O DOP IMAGES COMPLETED DATE/TIME: 05/11/2020 4:42 pm REASON FOR STUDY: liver disease, elevated bilirubin COMPARISON: 09/30/2017 TECHNIQUE: Dynamic and static grayscale images acquired of the abdomen and recorded on PACS. Etienneo timbo selected color Doppler and spectral images recorded. LIMITATIONS: None. FINDINGS: PANCREAS: The pancreas is obscured by overlying bowel. LIVER: Diffuse increased coarsened echotexture and nodular contour to the liver, raising the questio n of possible cirrhosis of the liver. The liver is enlarged and measures 21.0 cm in length. LIVER VASCULATURE: Normal directional flow of the main portal vein and hepatic veins. GALLBLADDER: Gallbladder sludge. Diffuse gallbladder wall thickening which measures 5.0 mm. Questi on of small amount of pericholecystic fluid. ULTRASOUND-DETECTED GALDAMEZ'S SIGN: Negative. INTRAHEPATIC DUCTS AND COMMON DUCT: CBD not visualized due to overlying bowel. The intrahepatic primitivo ts normal caliber. No filling defects. INFERIOR VENA CAVA: Normal flow. AORTA: The proximal and mid segments are patent. The distal segment is obscured by overlying bowel. RIGHT KIDNEY: The right kidney measures 12 x 6 x 5 mm. Nonobstructing 0.8 x 0.8 cm calculus mid glen e of the kidney. PERITONEAL AND RIGHT PLEURAL SPACE: Moderate amount of free fluid. OTHER: No other significant findings. IMPRESSION: 1. Hepatomegaly. Diffuse increased coarsened echotexture and nodular contour to the li jessy raising question of possible cirrhosis of the liver. Please see CT abdomen report dated 04/25/20 20. 2. Moderate amount of ascites. 3. The pancreas, common bile duct, and distal segment of the abdominal aorta are obscured by overlyi ng bowel gas. 4. Gallbladder sludge. Diffuse gallbladder wall thickening and question of small amount of perichol ecystic fluid. 5. Nonobstructing right renal calculus. TECHNICAL DOCUMENTATION: JOB ID: [id number] 2010 [employer]- All Rights Reserved Reading location - IP/workstation name: [email or web address]
[2020-05-11] MEDS ORDERED: CEFTRIAXONE 1 GM/D5W RTU 1 GM/50 ML RTUPB IV ONE (17:28)
[2020-05-11] MEDS ORDERED: IPRATROPIUM/ALBUTEROL 0.5-2.5 MG/3 ML AMPUL NEB PRN (17:45)
[2020-05-11] MEDS ORDERED: ONDANSETRON HCL INJ/PF 4 MG/2 ML SDV IV PRN (17:45)
[2020-05-11] MEDS ORDERED: TEMAZEPAM 7.5 MG CAPSULE PO PRN (17:45)
[2020-05-11] MEDS ORDERED: PROMETHAZINE HCL INJ 25 MG/1 ML VIAL IV PRN (17:45)
[2020-05-11] MEDS ORDERED: ACETAMINOPHEN 325 MG TABLET PO PRN (17:45)
[2020-05-11] MEDS ORDERED: NICOTINE 14 MG/24 HR PATCH.TD24 TD PRN (17:50)
--- NOTE | 2020-05-11 18:06 | PDOC H&P ---
History of Present Illness History of Present Illness: KENNETH MCCLELLAND is a 55 year old male EtOH abuse, alcoholic cirrhosis, diverticulosis, chronic pancreatitis, chronic hyponatremia, multiple liver masses, esophageal varices, who was recently admitted for evaluation of liver mass, alcoholic cirrhosis, hypokalemia, hyponatremia and pancytopenia. Patient presenting to ED complaining of worsening lower extremity edema and abdominal distention, stating that he has been very compliant with his medication however he mentions that he does drink excessive amount of water, stating that nobody told him to restrict his water, patient that he is not drinking since last hospitalization, and has not had any sick contact, denies any abdominal pain, nausea, vomiting, fever, chills, shortness of breath, diarrhea, constipation or any urinary symptoms. Past Medical History Psychiatric Medical History: Denies: Depression Social History Smoking Status: Current Every Day Smoker Frequency of Alcohol Use: Heavy Hx Recreational Drug Use: No Drugs: None Hx Prescription Drug Abuse: No Family History Family History: None, Reviewed & Not Pertinent, Arthritis Parental Family History Reviewed: Yes Children Family History Reviewed: Yes Sibling(s) Family History Reviewed.: Yes Medication/Allergy Home Medications: Calcium Carbonate [Tums Chewable 500 mg Tab.chew] 500 mg PO MEALSHS #30 tab.chew 04/29/20 Folic Acid [Folvite 1 mg Tablet] 1 mg PO DAILY #30 tablet 04/29/20 Lactulose [Kristalose 10 gm Packet] 10 gm PO DAILY #30 packet 04/29/20 Nicotine [Nicoderm 21 mg/24 Hr Transderm Patch] 1 each TD DAILY 30 Days patch.td24 04/29/20 Pantoprazole Sodium [Protonix [address] Tablet] 40 mg PO DAILY #30 tablet.dr 04/29/20 Propranolol HCl [Inderal 10 mg Tablet] 10 mg PO Q12 #60 tablet 04/29/20 Sodium Bicarbonate [Sodium Bicarbonate 650 mg Tablet] 650 mg PO AC #90 tablet 04/29/20 Thiamine HCl [Thiamine 100 mg Tablet] 100 mg PO DAILY #30 tablet 04/29/20 Allergies/Adverse Reactions: No Known Allergies Allergy (Verified 04/22/20 12:23) Review of Systems Review of Systems: as per hpi Physical Exam Vital Signs: Temp Pulse Resp BP Pulse Ox 98.7 F 76 18 112/62 100 05/11/20 15:24 05/11/20 15:24 05/11/20 15:24 05/11/20 15:24 05/11/20 15:24 Intake & Output 05/10/20 05/11/20 05/12/20 06:59 06:59 06:59 Weight 79.6 kg General appearance: PRESENT: no acute distress, well-developed, well-nourished, other - Jaundiced. Head exam: PRESENT: atraumatic, normocephalic Eye exam: PRESENT: scleral icterus Neck exam: ABSENT: carotid bruit, JVD, lymphadenopathy, thyromegaly Respiratory exam: PRESENT: clear to auscultation justin. ABSENT: rales, rhonchi, wheezes Cardiovascular exam: PRESENT: RRR. ABSENT: diastolic murmur, rubs, systolic murmur GI/Abdominal exam: PRESENT: normal bowel sounds, soft, other - Abdominal distention. Positive fluid wave.. ABSENT: distended, guarding, mass, organolmegaly, rebound, tenderness Extremities exam: PRESENT: full ROM, other - 4+ pitting edema.. ABSENT: calf tenderness, clubbing, pedal edema Neurological exam: PRESENT: alert, awake, oriented to person, oriented to place, oriented to time, oriented to situation, CN II-XII grossly intact. ABSENT: motor sensory deficit Skin exam: PRESENT: jaundice Results Laboratory Results: 05/11/20 12:44 05/11/20 12:44 05/11/20 05/11/20 05/11/20 10:50 10:50 12:44 WBC Cancelled 14.9 H RBC Cancelled 3.09 L Hgb Cancelled 11.3 L Hct Cancelled 33.1 L MCV Cancelled 107 H MCH Cancelled 36.5 H MCHC Cancelled 34.1 RDW Cancelled 15.6 H Plt Count Cancelled 166 Seg Neutrophils % Cancelled 81.9 H Sodium Potassium Chloride Carbon Dioxide Anion Gap BUN Creatinine Est GFR ( Amer) Glucose Calcium Total Bilirubin AST Alkaline Phosphatase Ammonia 45.6 H Total Protein Albumin Lipase Urine Color Urine Appearance Urine pH Ur Specific [place] Urine Protein Urine Glucose (UA) Urine Ketones Urine Blood Urine Nitrite Ur Leukocyte Esterase Urine RBC (Auto) 05/11/20 05/11/20 12:44 15:19 WBC RBC Hgb Hct MCV MCH MCHC RDW Plt Count Seg Neutrophils % Sodium 131.8 L Potassium 4.3 Chloride 99 Carbon Dioxide 21 L Anion Gap 12 BUN 13 Creatinine 0.73 Est GFR ( Amer) > 60 Glucose 112 H Calcium 9.0 Total Bilirubin 15.8 H AST 130 H Alkaline Phosphatase 284 H Ammonia Total Protein 7.2 Albumin 2.8 L Lipase < 10.0 L Urine Color BROWN Urine Appearance CLOUDY Urine pH 5.0 Ur Specific [place] 1.030 Urine Protein 100 H Urine Glucose (UA) 50 H Urine Ketones NEGATIVE Urine Blood LARGE H Urine Nitrite NEGATIVE Ur Leukocyte Esterase NEGATIVE Urine RBC (Auto) >182 05/11/20 05/11/20 10:50 13:36 Troponin I < 0.012 NT-Pro-B Natriuret Pep 455 H Impressions: Chest X-Ray 05/11/20 10:46 IMPRESSION: Small pleural effusions no other significant findings. Abdomen Ultrasound 05/11/20 15:39 IMPRESSION: 1. Hepatomegaly. Diffuse increased coarsened echotexture and nodular contour to the liver raising question of possible cirrhosis of the liver. Please see CT abdomen report dated 04/25/2020. 2. Moderate amount of ascites. 3. The pancreas, common bile duct, and distal segment of the abdominal aorta are obscured by overlying bowel gas. 4. Gallbladder sludge. Diffuse gallbladder wall thickening and question of small amount of pericholecystic fluid. 5. Nonobstructing right renal calculus. Assessment and Plan - Diagnosis (1) Anasarca Is this a current diagnosis for this admission?: Yes Plan: History of alcoholic cirrhosis with recent hospitalization. Patient stating he was not told to restrict his fluid and is drinking excessive amount of water. Presented with lower extremity edema extending to his scrotum. Abdominal distention with positive fluid wave. Patient will need therapeutic and diagnostic paracentesis however his INR is elevated which needs to be corrected. Patient can be given FFP tomorrow once he is more euvolemic as given his anasarca anymore transfusion might cause respiratory failure. Admit to telemetry, daily weight, strict ins and outs, fluid restriction, IV Lasix, diagnostic and therapeutic paracentesis. (2) Leukocytosis Is this a current diagnosis for this admission?: Yes Plan: Patient denies any fever, chills. Patient does abdominal distention however denies any abdominal pain. No tenderness appreciated on abdominal examination. Given history of alcoholic cirrhosis and severe ascites will start on empiric IV ceftriaxone. We will obtain blood and peritoneal fluid culture. (3) Alcoholic cirrhosis Qualifiers: Ascites presence: with ascites Qualified Code(s): K70.31 - Alcoholic cirrhosis of liver with ascites Is this a current diagnosis for this admission?: Yes Plan: History of alcoholic cirrhosis. History of recurrent hospitalization. History of nonbleeding esophageal varices. Patient is stating that he has been sober since his last admission. Aspiration, seizure and fall precaution. Monitor vitals. Monitor H&H. Monitor for bleeding. Outpatient PCP and gastroenterology follow-up. (4) Mass of multiple sites of liver Is this a current diagnosis for this admission?: Yes Plan: Patient had extensive work-up and evaluation in previous admission. Please refer to previous admission notes. Outpatient PCP and oncology follow-up. (5) ETOH abuse Is this a current diagnosis for this admission?: Yes Plan: Patient said that he has been sober since admission. Monitor electrolytes and replace as needed. DT precaution. P.o. folic acid, thiamine and multivitamins. (6) Chronic hyponatremia Is this a current diagnosis for this admission?: Yes Plan: Sodium at baseline. Alert and oriented x2. BMP tomorrow. Continue supplemental sodium. (7) Tobacco dependence Is this a current diagnosis for this admission?: Yes Plan: Counseled on quitting. NicoDerm patch provided. - Time Time Spent with patient: 35 or more minutes Smoking Cessation Education: 3 to 10 minutes Medications reviewed and adjusted accordingly: Yes Anticipated Discharge Disposition: Home with Home Health Anticipated Discharge Timeframe: within 72 hours
[2020-05-11] MEDS: FAMOTIDINE 20 MG TABLET PO SCH (22:22)
[2020-05-11] MEDS: FUROSEMIDE INJ/PF 40 MG/4 ML SDV IV SCH (22:22)
[2020-05-11] MEDS: LACTULOSE SYRUP 20 GM/30 ML UDCUP PO SCH (22:22)
[2020-05-12 05:35] LABS: INTERNATIONAL RATION (INR) 1.78; PROTHROMBIN TIME 20.8 SEC (11.4-15.4)
[2020-05-12 05:55] LABS: ALBUMIN 2.1 g/dL (3.5-5.0); ALKALINE PHOSPHATASE 191 U/L (38-126); ANION GAP 10 (5-19); ASPARTATE AMINO TRANSFERASE 104 U/L (17-59); BILIRUBIN,DIRECT 11.8 mg/dL (0.0-0.4); BILIRUBIN,TOTAL 13.7 mg/dL (0.2-1.3); BLOOD UREA NITROGEN 13 mg/dL (7-20); CALCIUM 8.5 mg/dL (8.4-10.2); CARBON DIOXIDE 20 mmol/L (22-30); CHLORIDE 102 mmol/L (98-107); GLUCOSE 96 mg/dL (75-110); POTASSIUM 3.8 mmol/L (3.6-5.0); TOTAL PROTEIN 5.5 g/dL (6.3-8.2)
[2020-05-12] MEDS: HEPARIN SOD (PORCINE) 5,000 UNIT/ML 1 ML VIAL SUBCUT SCH ×2 (06:32→13:46)
[2020-05-12] MEDS: FUROSEMIDE INJ/PF 40 MG/4 ML SDV IV SCH (07:44)
[2020-05-12 08:07] LABS: ABSOLUTE BASOPHILS # (AUTO) 0.1 10^3/uL (0.0-0.2); ABSOLUTE EOSINOPHILS # (AUTO) 0.2 10^3/uL (0.0-0.6); ABSOLUTE MONOCYTES (AUTO) 1.6 10^3/uL (0.1-1.4); ABSOLUTE NEUT (AUTO) 11.9 10^3/uL (1.7-8.2); BASOPHILS % (AUTO) 0.8 % (0-2); EOSINOPHILS % (AUTO) 1.4 % (0-6); HEMATOCRIT 27.8 % (37.9-51.0); HEMOGLOBIN 9.5 g/dL (13.5-17.0); LYMPHOCYTES % (AUTO) 6.8 % (13-45); MEAN CORPUSCULAR HEMOGLOBIN 36.1 pg (27.0-33.4); MEAN CORPUSCULAR HGB CONC 34.2 g/dL (32.0-36.0); MEAN CORPUSCULAR VOLUME 106 fl (80-97); MONOCYTES % (AUTO) 10.9 % (3-13); RED BLOOD COUNT 2.64 10^6/uL (4.35-5.55); RED CELL DISTRIBUTION WIDTH 15.5 % (11.5-14.0); SEGMENTED NEUTROPHILS % (AUTO) 80.1 % (42-78); TOTAL CELLS COUNTED % (AUTO) 100 %; WHITE BLOOD COUNT 14.8 10^3/uL (4.0-10.5)
[2020-05-12 08:24] LABS: PLATELET COUNT 141 10^3/uL (150-450)
[2020-05-12] MEDS: LACTULOSE SYRUP 20 GM/30 ML UDCUP PO SCH ×2 (10:19→21:37)
[2020-05-12] MEDS: FAMOTIDINE 20 MG TABLET PO SCH ×2 (10:21→21:37)
[2020-05-12] MEDS: SODIUM BICARBONATE 650 MG TABLET PO SCH (10:21)
[2020-05-12] MEDS: THIAMINE HCL 100 MG TABLET PO SCH (10:21)
[2020-05-12] MEDS: FOLIC ACID 1 MG TABLET PO SCH (10:21)
[2020-05-12] MEDS ORDERED: SPIRONOLACTONE 25 MG TABLET PO SCH (11:00)
[2020-05-12] MEDS: LIDOCAINE 5% (700 MG) TRANSDERMAL ADH..PATCH TP SCH (11:43)
[2020-05-12] MEDS: SPIRONOLACTONE 25 MG TABLET PO SCH (11:48)
[2020-05-12] MEDS: FUROSEMIDE 40 MG TABLET PO SCH (11:52)
[2020-05-12] MEDS: MIDODRINE HCL 5 MG TABLET PO SCH ×3 (11:52→17:59)
--- NOTE | 2020-05-12 17:34 | PDOC PROGRESS REPORT ---
Subjective Subjective:: Per Previous Physician: "KENNETH MCCLELLAND is a 55 year old male EtOH abuse, alcoholic cirrhosis, diverticulosis, chronic pancreatitis, chronic hyponatremia, multiple liver masses, esophageal varices, who was recently admitted for evaluation of liver mass, alcoholic cirrhosis, hypokalemia, hyponatremia and pancytopenia. Patient presenting to ED complaining of worsening lower extremity edema and abdominal distention, stating that he has been very compliant with his medication however he mentions that he does drink excessive amount of water, stating that nobody told him to restrict his water, patient that he is not drinking since last hospitalization, and has not had any sick contact, denies any abdominal pain, nausea, vomiting, fever, chills, shortness of breath, diarrhea, constipation or any urinary symptoms." 05/12/2020 Patient's abdomen is rather large and a bit tense today and I discussed getting a paracentesis with him. He is in agreement with this and I have ordered the test and appropriate labs to go along with it. We will plan to do this tomorrow. Start the patient on Lasix and spironolactone along with midodrine to support his lower limit normal blood pressure. Patient states he is already s tarting to feel a bit better. He is alert and oriented but seems to have some underlying confusion given he states he is trying to make an appointment with my clinic but was unable to do so and I explained to him that I do not have a clinic as I am a hospitalist. Lipase normal. Blood culture pending. He has no new complaints otherwise. Reason For Visit: ANASARCA,LEUKOCYTOSIS,ALCOHOLIC LIVER CIRRHOSIS Physical Exam Vital Signs: Temp Pulse Resp BP Pulse Ox 98.7 F 82 17 103/65 96 05/12/20 16:13 05/12/20 16:13 05/12/20 16:13 05/12/20 16:13 05/12/20 16:13 Intake & Output 05/11/20 05/12/20 05/13/20 06:59 06:59 06:59 Intake Total 830 354 Balance 830 354 Weight 80.7 kg Exam: General appearance: PRESENT: no acute distress, well-developed, well-nourished, chronically ill-appearing Head exam: PRESENT: atraumatic, normocephalic Eye exam: PRESENT: conjunctiva pink. Noted scleral icterus Mouth exam: PRESENT: moist Respiratory exam: PRESENT: clear to auscultation justin. ABSENT: rales, rhonchi, wheezes Cardiovascular exam: PRESENT: RRR. ABSENT: diastolic murmur, rubs, systolic murmur GI/Abdominal exam: PRESENT: normal bowel sounds, slightly firm, notably distended; Absent: Guarding, mass, organolmegaly, rebound, tenderness Neurological exam: PRESENT: alert, awake, oriented to person, oriented to place, oriented to time, oriented to situation Psychiatric exam: PRESENT: appropriate affect, normal mood Skin exam: PRESENT: dry, intact, warm Results Laboratory Results: 05/12/20 07:51 05/12/20 05:00 05/12/20 05/12/20 05/12/20 05:00 05:00 07:51 WBC Cancelled 14.8 H RBC Cancelled 2.64 L Hgb Cancelled 9.5 L Hct Cancelled 27.8 L MCV Cancelled 106 H MCH Cancelled 36.1 H MCHC Cancelled 34.2 RDW Cancelled 15.5 H Plt Count Cancelled 141 L Seg Neutrophils % Cancelled 80.1 H Sodium 132.2 L Potassium 3.8 Chloride 102 Carbon Dioxide 20 L Anion Gap 10 BUN 13 Creatinine 0.80 Est GFR ( Amer) > 60 Glucose 96 Calcium 8.5 Magnesium 1.8 Total Bilirubin 13.7 H AST 104 H Alkaline Phosphatase 191 H Total Protein 5.5 L Albumin 2.1 L 05/11/20 05/11/20 10:50 13:36 Troponin I < 0.012 NT-Pro-B Natriuret Pep 455 H Impressions: Chest X-Ray 05/11/20 10:46 IMPRESSION: Small pleural effusions no other significant findings. Abdomen Ultrasound 05/11/20 15:39 IMPRESSION: 1. Hepatomegaly. Diffuse increased coarsened echotexture and nodular contour to the liver raising question of possible cirrhosis of the liver. Please see CT abdomen report dated 04/25/2020. 2. Moderate amount of ascites. 3. The pancreas, common bile duct, and distal segment of the abdominal aorta are obscured by overlying bowel gas. 4. Gallbladder sludge. Diffuse gallbladder wall thickening and question of small amount of pericholecystic fluid. 5. Nonobstructing right renal calculus. Assessment and Plan - Diagnosis (1) Alcoholic cirrhosis Qualifiers: Ascites presence: with ascites Qualified Code(s): K70.31 - Alcoholic cirrhosis of liver with ascites Is this a current diagnosis for this admission?: Yes Plan: Per Previous Physician: "History of alcoholic cirrhosis. History of recurrent hospitalization. History of nonbleeding esophageal varices. Patient is stating that he has been sober since his last admission. Aspiration, seizure and fall precaution. Monitor vitals. Monitor H&H. Monitor for bleeding. Outpatient PCP and gastroenterology follow-up. " Started on Lasix and spironolactone at a 40/100 ratio per recommendations Started midodrine for blood pressure support Paracentesis (2) Anasarca Is this a current diagnosis for this admission?: Yes Plan: Per Previous Physician: "History of alcoholic cirrhosis with recent hospitalization. Patient stating he was not told to restrict his fluid and is drinking excessive amount of water. Presented with lower extremity edema extending to his scrotum. Abdominal distention with positive fluid wave. Patient will need therapeutic and diagnostic paracentesis however his INR is elevated which needs to be corrected. Patient can be given FFP tomorrow once he is more euvolemic as given his anasarca anymore transfusion might cause respiratory failure. Admit to telemetry, daily weight, strict ins and outs, fluid restriction, IV Lasix, diagnostic and therapeutic paracentesis." Patient unable to recall any of my instructions when I discharged him previously, stating he is trying to make an appointment with my clinic although I clearly do not have one as I am a hospitalist He is a poor candidate to be at home unsupervised without frequent care due to chronic underlying hepatic encephalopathy, recommend SNF at discharge Paracentesis ordered Follow-up ascites fluid analysis (3) ETOH abuse Is this a current diagnosis for this admission?: Yes Plan: Per Previous Physician: "Patient said that he has been sober since admission. Monitor electrolytes and replace as needed. DT precaution. P.o. folic acid, thiamine and multivitamins. " (4) Leukocytosis Qualifiers: Leukocytosis type: other Qualified Code(s): D72.828 - Other elevated white blood cell count Is this a current diagnosis for this admission?: Yes Plan: Per Previous Physician: "Patient denies any fever, chills. Patient does abdominal distention however denies any abdominal pain. No tenderness appreciated on abdominal examination. Given history of alcoholic cirrhosis and severe ascites will start on empiric IV ceftriaxone. We will obtain blood and peritoneal fluid culture. " (5) Mass of multiple sites of liver Is this a current diagnosis for this admission?: Yes Plan: Per Previous Physician: "Patient had extensive work-up and evaluation in previous admission. Please refer to previous admission notes. Outpatient PCP and oncology follow-up." Pathology on previous admission did not show malignancy (6) Tobacco dependence Is this a current diagnosis for this admission?: Yes Plan: Counseled on quitting. NicoDerm patch provided. - Time Time Spent with patient: 25-34 minutes Medications reviewed and adjusted accordingly: Yes Anticipated Discharge Disposition: [facility] Facility Anticipated Discharge Timeframe: within 72 hours - Inpatient Certification Based on my medical assessment, after consideration of the patient's comorbidities, presenting symptoms, or acuity I expect that the services needed warrant INPATIENT care.: Yes I certify that my determination is in accordance with my understanding of Medicare's requirements for reasonable and necessary INPATIENT services [42 CFR 412.3e].: Yes Medical Necessity: Significant Comorbidiites Make Outpatient Treatment Too Risky, Need Close Monitoring Due to Risk of Patient Decompensation, Risk of Complication if Not Cared For in Hospital, Risk of Diagnosis Which Will Require Inpatient Eval/Care/Monitoring
[2020-05-12] MEDS: CEFTRIAXONE 1 GM/D5W RTU 1 GM/50 ML RTUPB IV SCH (18:02)
[2020-05-12] MEDS: ACETAMINOPHEN 325 MG TABLET PO PRN (21:37)
[2020-05-13 05:54] LABS: INTERNATIONAL RATION (INR) 1.75; PROTHROMBIN TIME 20.6 SEC (11.4-15.4)
[2020-05-13 06:10] LABS: ALBUMIN 2.2 g/dL (3.5-5.0)
[2020-05-13 09:15] LABS: ANION GAP 13 (5-19); BLOOD UREA NITROGEN 16 mg/dL (7-20); CALCIUM 8.5 mg/dL (8.4-10.2); CARBON DIOXIDE 21 mmol/L (22-30); CHLORIDE 99 mmol/L (98-107); GLUCOSE 112 mg/dL (75-110); POTASSIUM 3.4 mmol/L (3.6-5.0)
--- NOTE | 2020-05-13 12:04 | RADIOLOGY REPORT (SQ) ---
EXAM DESCRIPTION: U/S ABD PARACENTESIS IMAGES COMPLETED DATE/TIME: 05/13/2020 11:56 am REASON FOR STUDY: ascites, cirrhosis COMPARISON 05/11/2020 LIMITATIONS: None. PROCEDURE: After obtaining informed consent, the patient was brought to the ultrasound suite. The p rocedure was performed with the patient on a gurney. Ultrasound was used to identify a prominent poc ket of ascites in the right lower quadrant. An appropriate access site was selected. The patient wa s prepped and draped in usual sterile fashion. The access site was anesthetized with 8 mL 1% lidoca ine. A Lrca-X-Qfezvyqu needle was advanced into the fluid. After aspiration of fluid the needle, th e catheter was advanced off the needle into the fluid. A total of 47 50 mL of clear, straw-colored f luid was removed. The patient tolerated the procedure well left the department in satisfactory condit ion. IMPRESSION: Successful ultrasound-guided paracentesis COMMENT: Patient medication list reviewed: Yes- Quality ID# [id number]:Eligible professional attests to doc umenting in the medical record they obtained, updated, or reviewed the patient's current medications. TECHNICAL DOCUMENTATION: JOB ID: [id number] 2010 [employer]- All Rights Reserved Reading location - IP/workstation name: [email or web address]
[2020-05-13] MEDS: SPIRONOLACTONE 25 MG TABLET PO SCH (12:57)
[2020-05-13] MEDS: THIAMINE HCL 100 MG TABLET PO SCH (12:58)
[2020-05-13] MEDS: SODIUM BICARBONATE 650 MG TABLET PO SCH (12:58)
[2020-05-13] MEDS: FUROSEMIDE 40 MG TABLET PO SCH (12:58)
[2020-05-13] MEDS: FAMOTIDINE 20 MG TABLET PO SCH ×2 (12:58→22:43)
[2020-05-13] MEDS: FOLIC ACID 1 MG TABLET PO SCH (12:58)
[2020-05-13] MEDS: MIDODRINE HCL 5 MG TABLET PO SCH ×3 (12:59→17:36)
[2020-05-13] MEDS: LIDOCAINE 5% (700 MG) TRANSDERMAL ADH..PATCH TP SCH (13:00)
[2020-05-13] MEDS: LACTULOSE SYRUP 20 GM/30 ML UDCUP PO SCH ×2 (13:13→22:43)
[2020-05-13 13:49] LABS: FLUID SOURCE ASCITES
[2020-05-13 13:50] LABS: FLUID COLOR YELLOW; FLUID TYPE PERITONEAL
[2020-05-13 13:51] LABS: FLUID APPEARANCE CLEAR; FLUID VISCOSITY LIQUID
--- NOTE | 2020-05-13 16:55 | PDOC PROGRESS REPORT ---
Subjective Subjective:: Per Previous Physician: "KENNETH MCCLELLAND is a 55 year old male EtOH abuse, alcoholic cirrhosis, diverticulosis, chronic pancreatitis, chronic hyponatremia, multiple liver masses, esophageal varices, who was recently admitted for evaluation of liver mass, alcoholic cirrhosis, hypokalemia, hyponatremia and pancytopenia. Patient presenting to ED complaining of worsening lower extremity edema and abdominal distention, stating that he has been very compliant with his medication however he mentions that he does drink excessive amount of water, stating that nobody told him to restrict his water, patient that he is not drinking since last hospitalization, and has not had any sick contact, denies any abdominal pain, nausea, vomiting, fever, chills, shortness of breath, diarrhea, constipation or any urinary symptoms." 05/12/2020 Patient's abdomen is rather large and a bit tense today and I discussed getting a paracentesis with him. He is in agreement with this and I have ordered the test and appropriate labs to go along with it. We will plan to do this tomorrow. Start the patient on Lasix and spironolactone along with midodrine to support his lower limit normal blood pressure. Patient states he is already s tarting to feel a bit better. He is alert and oriented but seems to have some underlying confusion given he states he is trying to make an appointment with my clinic but was unable to do so and I explained to him that I do not have a clinic as I am a hospitalist. Lipase normal. Blood culture pending. He has no new complaints otherwise. 05/13/2020 Patient abdomen still tense today. He went for paracentesis and they removed over 4.5 L. He will be given 12.5 g of IV albumin. He is continued on Lasix and Aldactone with good urine output per patient. INR is a bit lower than his initial value. Paracentesis chemistries are pending. Cultures from ascites fluid is pending. Reason For Visit: ANASARCA,LEUKOCYTOSIS,ALCOHOLIC LIVER CIRRHOSIS Physical Exam Vital Signs: Temp Pulse Resp BP Pulse Ox 98.7 F 99 16 102/64 99 05/13/20 16:03 05/13/20 16:03 05/13/20 12:32 05/13/20 16:03 05/13/20 16:03 Intake & Output 05/12/20 05/13/2005/14/20 06:59 06:59 06:59 Intake Total 830 1522 Balance 830 1522 Weight 80.7 kg 80.7 kg Exam: General appearance: PRESENT: no acute distress, well-developed, well-nourished, chronically ill-appearing, smiling states he feels a bit better Head exam: PRESENT: atraumatic, normocephalic Eye exam: PRESENT: conjunctiva pink. Noted scleral icterus Mouth exam: PRESENT: moist Respiratory exam: PRESENT: clear to auscultation justin. ABSENT: rales, rhonchi, wheezes Cardiovascular exam: PRESENT: RRR. ABSENT: diastolic murmur, rubs, systolic murmur GI/Abdominal exam: PRESENT: normal bowel sounds, slightly firm, notably distended; Absent: Guarding, mass, organolmegaly, rebound, tenderness Neurological exam: PRESENT: alert, awake, oriented to person, oriented to place, oriented to time, oriented to situation Psychiatric exam: PRESENT: appropriate affect, normal mood Skin exam: PRESENT: dry, intact, warm Results Laboratory Results: 05/12/20 07:51 05/13/20 04:54 05/13/20 05/13/20 05/13/20 04:54 04:54 11:10 Sodium 132.6 L Potassium 3.4 L Chloride 99 Carbon Dioxide 21 L Anion Gap 13 BUN 16 Creatinine 1.05 Est GFR ( Amer) > 60 Glucose 112 H Calcium 8.5 Albumin 2.2 L Fluid Type PERITONEAL Fluid Source ASCITES Fluid Color YELLOW Fluid Appearance CLEAR Fluid Viscosity LIQUID Fluid WBC 77 Fluid RBC 66 05/11/20 05/11/20 10:50 13:36 Troponin I < 0.012 NT-Pro-B Natriuret Pep 455 H Impressions: Chest X-Ray 05/11/20 10:46 IMPRESSION: Small pleural effusions no other significant findings. Abdomen Ultrasound 05/11/20 15:39 IMPRESSION: 1. Hepatomegaly. Diffuse increased coarsened echotexture and nodular contour to the liver raising question of possible cirrhosis of the liver. Please see CT abdomen report dated 04/25/2020. 2. Moderate amount of ascites. 3. The pancreas, common bile duct, and distal segment of the abdominal aorta are obscured by overlying bowel gas. 4. Gallbladder sludge. Diffuse gallbladder wall thickening and question of sm all amount of pericholecystic fluid. 5. Nonobstructing right renal calculus. Paracentesis Ultrasound 05/13/20 00:00 IMPRESSION: Successful ultrasound-guided paracentesis Assessment and Plan - Diagnosis (1) Alcoholic cirrhosis Qualifiers: Ascites presence: with ascites Qualified Code(s): K70.31 - Alcoholic cirrhosis of liver with ascites Is this a current diagnosis for this admission?: Yes Plan: Per Previous Physician: "History of alcoholic cirrhosis. History of recurrent hospitalization. History of nonbleeding esophageal varices. Patient is stating that he has been sober since his last admission. Aspiration, seizure and fall precaution. Monitor vitals. Monitor H&H. Monitor for bleeding. Outpatient PCP and gastroenterology follow-up. " Started on Lasix and spironolactone at a 40/100 ratio per recommendations Started midodrine for blood pressure support Paracentesis 05/13 with approximately 4.75 L of fluid removed IV albumin 12.5 g given Ascites culture pending Ascites chemistry is pending (2) Anasarca Is this a current diagnosis for this admission?: Yes Plan: Per Previous Physician: "History of alcoholic cirrhosis with recent hospitalization. Patient stating he was not told to restrict his fluid and is drinking excessive amount of water. Presented with lower extremity edema extending to his scrotum. Abdominal distention with positive fluid wave. Patient will need therapeutic and diagnostic paracentesis however his INR is elevated which needs to be corrected. Patient can be given FFP tomorrow once he is more euvolemic as given his anasarca anymore transfusion might cause respiratory failure. Admit to telemetry, daily weight, strict ins and outs, fluid restriction, IV Lasix, diagnostic and therapeutic paracentesis." Patient unable to recall any of my instructions when I discharged him previously, stating he is trying to make an appointment with my clinic although I clearly do not have one as I am a hospitalist He is a poor candidate to be at home unsupervised without frequent care due to chronic underlying hepatic encephalopathy, recommend SNF at discharge Paracentesis ordered Follow-up ascites fluid analysis (3) ETOH abuse Is this a current diagnosis for this admission?: Yes (4) Leukocytosis Qualifiers: Leukocytosis type: other Qualified Code(s): D72.828 - Other elevated white blood cell count Is this a current diagnosis for this admission?: Yes (5) Mass of multiple sites of liver Is this a current diagnosis for this admission?: Yes Plan: Per Previous Physician: "Patient had extensive work-up and evaluation in previous admission. Please refer to previous admission notes. Outpatient PCP and oncology follow-up." Pathology on previous admission did not show malignancy (6) Tobacco dependence Is this a current diagnosis for this admission?: Yes - Time Time Spent with patient: 25-34 minutes Medications reviewed and adjusted accordingly: Yes Anticipated Discharge Disposition: [facility] Facility Anticipated Discharge Timeframe: within 72 hours - Inpatient Certification Based on my medical assessment, after consideration of the patient's comorbidities, presenting symptoms, or acuity I expect that the services needed warrant INPATIENT care.: Yes I certify that my determination is in accordance with my understanding of Medicare's requirements for reasonable and necessary INPATIENT services [42 CFR 412.3e].: Yes Medical Necessity: Significant Comorbidiites Make Outpatient Treatment Too Risk y, Need Close Monitoring Due to Risk of Patient Decompensation, Need for IV Antibiotics, Risk of Complication if Not Cared For in Hospital, Risk of Diagnosis Which Will Require Inpatient Eval/Care/Monitoring
[2020-05-13] MEDS ORDERED: ALBUMIN HUMAN 12.5 GM/50 ML RTUINJ IV ONE (17:30)
[2020-05-13] MEDS: CEFTRIAXONE 1 GM/D5W RTU 1 GM/50 ML RTUPB IV SCH (17:38)
[2020-05-13] MEDS: ACETAMINOPHEN 325 MG TABLET PO PRN (17:42)
[2020-05-13] MEDS: HEPARIN SOD (PORCINE) 5,000 UNIT/ML 1 ML VIAL SUBCUT SCH (22:44)
[2020-05-14] MEDS: LACTULOSE SYRUP 20 GM/30 ML UDCUP PO SCH ×2 (05:59→14:16)
[2020-05-14] MEDS: HEPARIN SOD (PORCINE) 5,000 UNIT/ML 1 ML VIAL SUBCUT SCH ×2 (05:59→14:16)
[2020-05-14 07:19] LABS: ANION GAP 13 (5-19); BLOOD UREA NITROGEN 15 mg/dL (7-20); CALCIUM 8.4 mg/dL (8.4-10.2); CARBON DIOXIDE 19 mmol/L (22-30); CHLORIDE 99 mmol/L (98-107); GLUCOSE 138 mg/dL (75-110); POTASSIUM 3.4 mmol/L (3.6-5.0)
[2020-05-14] MEDS ORDERED: POTASSIUM CHLORIDE 20 MEQ PACKET PO SCH (10:00)
[2020-05-14] MEDS: SODIUM BICARBONATE 650 MG TABLET PO SCH (10:24)
[2020-05-14] MEDS: FUROSEMIDE 40 MG TABLET PO SCH (10:24)
[2020-05-14] MEDS: THIAMINE HCL 100 MG TABLET PO SCH (10:24)
[2020-05-14] MEDS: LIDOCAINE 5% (700 MG) TRANSDERMAL ADH..PATCH TP SCH (10:24)
[2020-05-14] MEDS: FOLIC ACID 1 MG TABLET PO SCH (10:24)
[2020-05-14] MEDS: SPIRONOLACTONE 25 MG TABLET PO SCH (10:24)
[2020-05-14] MEDS: FAMOTIDINE 20 MG TABLET PO SCH (10:24)
[2020-05-14] MEDS: MIDODRINE HCL 5 MG TABLET PO SCH ×2 (10:25→14:16)
[2020-05-14] MEDS: ACETAMINOPHEN 325 MG TABLET PO PRN (10:32)
--- NOTE | 2020-05-14 15:45 | PDOC DISCHARGE SUMMARY ---
Impression - Admit/DC Date/PCP Admission Date/Primary Care Provider: 05/11/20 17:45 Discharge Date: 05/14/20 - Discharge Diagnosis (1) Alcoholic cirrhosis Is this a current diagnosis for this admission?: Yes (2) Anasarca Is this a current diagnosis for this admission?: Yes (3) ETOH abuse Is this a current diagnosis for this admission?: Yes (4) Leukocytosis Is this a current diagnosis for this admission?: Yes (5) Mass of multiple sites of liver Is this a current diagnosis for this admission?: Yes (6) Tobacco dependence Is this a current diagnosis for this admission?: Yes - Additional Information Discharge Diet: As Tolerated, Regular Discharge Activity: Activity As Tolerated, Balance Activity w/Rest Prescriptions: Spironolactone [Aldactone 25 mg Tablet] 100 mg PO DAILY #30 tablet Furosemide [Lasix 40 mg Tablet] 40 mg PO DAILY #30 tablet Potassium Chloride [Potassium Chloride 20 Meq Packet] 20 meq PO DAILY #30 packet Midodrine HCl [Proamatine 5 mg Tablet] 5 mg PO TID #90 tablet Home Medications: Calcium Carbonate [Tums Chewable 500 mg Tab.chew] 500 mg PO MEALSHS #30 tab.chew 04/29/20 Folic Acid [Folvite 1 mg Tablet] 1 mg PO DAILY #30 tablet 04/29/20 Nicotine [Nicoderm 21 mg/24 Hr Transderm Patch] 1 each TD DAILY 30 Days patch.td24 04/29/20 Pantoprazole Sodium [Protonix [address] Tablet] 40 mg PO DAILY #30 tablet.dr 04/29/20 Sodium Bicarbonate [Sodium Bicarbonate 650 mg Tablet] 650 mg PO AC #90 tablet 04/29/20 Thiamine HCl [Thiamine 100 mg Tablet] 100 mg PO DAILY #30 tablet 04/29/20 Furosemide [Lasix 40 mg Tablet] 40 mg PO DAILY #30 tablet 05/14/20 Lactulose [Kristalose 10 gm Packet] 10 gm PO BID #30 packet 05/14/20 Midodrine HCl [Proamatine 5 mg Tablet] 5 mg PO TID #90 tablet 05/14/20 Potassium Chloride [Potassium Chloride 20 Meq Packet] 20 meq PO DAILY #30 packet 05/14/20 Spironolactone [Aldactone 25 mg Tablet] 100 mg PO DAILY #30 tablet 05/14/20 History of Present Illiness History of Present Illness: Per Previous Physician: "KENNETH MCCLELLAND is a 55 year old male EtOH abuse, alcoholic cirrhosis, diverticulosis, chronic pancreatitis, chronic hyponatremia, multiple liver masses, esophageal varices, who was recently admitted for evaluation of liver mass, alcoholic cirrhosis, hypokalemia, hyponatremia and pancytopenia. Patient presenting to ED complaining of worsening lower extremity edema and abdominal distention, stating that he has been very compliant with his medication however he mentions that he does drink excessive amount of water, stating that nobody told him to restrict his water, patient that he is not drinking since last hospitalization, and has not had any sick contact, denies any abdominal pain, nausea, vomiting, fever, chills, shortness of breath, diarrhea, constipation or any urinary symptoms." Hospital Course Hospital Course: Per Previous Physician: "KENNETH MCCLELLAND is a 55 year old male EtOH abuse, alcoholic cirrhosis, diverticulosis, chronic pancreatitis, chronic hyponatremia, multiple liver masses, esophageal varices, who was recently admitted for evaluation of liver mass, alcoholic cirrhosis, hypokalemia, hyponatremia and pancytopenia. Patient presenting to ED complaining of worsening lower extremity edema and abdominal distention, stating that he has been very compliant with his medication however he mentions that he does drink excessive amount of water, stating that nobody told him to restrict his water, patient that he is not drinking since last hospitalization, and has not had any sick contact, denies any abdominal pain, nausea, vomiting, fever, chills, shortness of breath, diarrhea, constipation or any urinary symptoms." 05/12/2020 Patient's abdomen is rather large and a bit tense today and I discussed getting a paracentesis with him. He is in agreement with this and I have ordered the test and appropriate labs to go along with it. We will plan to do this tomorrow. Start the patient on Lasix and spironolactone along with midodrine to support his lower limit normal blood pressure. Patient states he is already starting to feel a bit better. He is alert and oriented but seems to have some underlying confusion given he states he is trying to make an appointment with my clinic but was unable to do so and I explained to him that I do not have a clinic as I am a hospitalist. Lipase normal. Blood culture pending. He has no new complaints otherwise. 05/13/2020 Patient abdomen still tense today. He went for paracentesis and they removed over 4.5 L. He will be given 12.5 g of IV albumin. He is continued on Lasix and Aldactone with good urine output per patient. INR is a bit lower than his initial value. Paracentesis chemistries are pending. Cultures from ascites fluid is pending. On day of discharge, patient states he is feeling very well on his swelling in his legs and abdomen is significantly reduced. He underwent paracentesis on 05/13 with notable improvement as well. Ascites fluid analysis was not consistent with SBP and was not consistent with malignancy. Cultures no growth to date. I have asked case management to arrange for a few myla visits of home health with [facility] for medication teaching and they will be setting this up for him. He is Medicaid pending and is also applying for disability both of which I certainly think are appropriate for him given his overall severe debility from his cirrhosis. I do not believe he will be able to go to his follow-up appointments or take his medication consistently without a significant amount of help from his family or, when he has proper insurance of support, home health nursing or perhaps transitioning to a facility. Given the advanced nature of his cirrhosis he has a high likelihood of mortality within the next few years and I recommended he follow-up with GI given that after he spends a great deal of time off of alcohol, he could potentially qualify for liver transplant. (1) Alcoholic cirrhosis Qualifiers: Ascites presence: with ascites Qualified Code(s): K70.31 - Alcoholic cirrhosis of liver with ascites Is this a current diagnosis for this admission?: Yes Plan: Per Previous Physician: "History of alcoholic cirrhosis. History of recurrent hospitalization. History of nonbleeding esophageal varices. Patient is stating that he has been sober since his last admission. Aspiration, seizure and fall precaution. Monitor vitals. Monitor H&H. Monitor for bleeding. Outpatient PCP and gastroenterology follow-up. " Started on Lasix and spironolactone at a 40/100 ratio per recommendations Started midodrine for blood pressure support Paracentesis 05/13 with approximately 4.75 L of fluid removed IV albumin 12.5 g given Ascites culture no growth to date Ascites chemistry reviewed (2) Anasarcaresolving Is this a current diagnosis for this admission?: Yes Plan: Per Previous Physician: "History of alcoholic cirrhosis with recent hospitalization. Patient stating he was not told to restrict his fluid and is drinking excessive amount of water. Presented with lower extremity edema extending to his scrotum. Abdominal distention with positive fluid wave. Patient will need therapeutic and diagnostic paracentesis however his INR is elevated which needs to be corrected. Patient can be given FFP tomorrow once he is more euvolemic as given his anasarca anymore transfusion might cause respiratory failure. Admit to telemetry, daily weight, strict ins and outs, fluid restriction, IV Lasix, diagnostic and therapeutic paracentesis." Patient unable to recall any of my instructions when I discharged him previously, stating he is trying to make an appointment with my clinic although I clearly do not have one as I am a hospitalist He is a poor candidate to be at home unsupervised without frequent care due to chronic underlying hepatic encephalopathy, recommend SNF at discharge Paracentesis done on 05/13 with approximately 4.75 L of fluid removed, no evidence of SBP Reviewed ascites fluid analysis Needs follow-up with GI (3) ETOH abuse Is this a current diagnosis for this admission?: Yes (4) Leukocytosis Qualifiers: Leukocytosis type: other Qualified Code(s): D72.828 - Other elevated white blood cell count Is this a current diagnosis for this admission?: Yes (5) Mass of multiple sites of liver Is this a current diagnosis for this admission?: Yes Plan: Per Previous Physician: "Patient had extensive work-up and evaluation in previous admission. Please refer to previous admission notes. Outpatient PCP and oncology follow-up." Pathology on previous admission did not show malignancy (6) Tobacco dependence Is this a current diagnosis for this admission?: Yes Physical Exam Vital Signs: Temp Pulse Resp BP Pulse Ox 98.4 F 82 17 91/53 L 90 L 05/14/20 11:14 05/14/20 11:14 05/14/20 11:14 05/14/20 11:14 05/14/20 11:14 Intake & Output 05/13/20 05/14/20 05/15/20 06:59 06:59 06:59 Intake Total 1522 1596 500 Balance 1522 1596 500 Weight 80.7 kg 80 kg Exam: General appearance: PRESENT: no acute distress, well-developed, well-nourished, chronically ill-appearing, smiling states he feels better his abdomen and legs are less edematous now, he would like to go home Head exam: PRESENT: atraumatic, normocephalic Eye exam: PRESENT: conjunctiva pink. Noted scleral icterus Mouth exam: PRESENT: moist Respiratory exam: PRESENT: clear to auscultation justin. ABSENT: rales, rhonchi, wheezes Cardiovascular exam: PRESENT: RRR. ABSENT: diastolic murmur, rubs, systolic murmur GI/Abdominal exam: PRESENT: normal bowel sounds, soft, less distended; Absent: Guarding, mass, organolmegaly, rebound, tenderness Neurological exam: PRESENT: alert, awake, oriented to person, oriented to place, oriented to time, oriented to situation Psychiatric exam: PRESENT: appropriate affect, normal mood Skin exam: PRESENT: dry, intact, warm Results Laboratory Results: WBC 14.8 10^3/uL (4.0-10.5) H 05/12/20 07:51 RBC 2.64 10^6/uL (4.35-5.55) L 05/12/20 07:51 Hgb 9.5 g/dL (13.5-17.0) L 05/12/20 07:51 Hct 27.8 % (37.9-51.0) L 05/12/20 07:51 MCV 106 fl (80-97) H 05/12/20 07:51 MCH 36.1 pg (27.0-33.4) H 05/12/20 07:51 MCHC 34.2 g/dL (32.0-36.0) 05/12/20 07:51 RDW 15.5 % (11.5-14.0) H 05/12/20 07:51 Plt Count 141 10^3/uL (150-450) L 05/12/20 07:51 Lymph % (Auto) 6.8 % (13-45) L 05/12/20 07:51 Davis % (Auto) 10.9 % (3-13) 05/12/20 07:51 Eos % (Auto) 1.4 % (0-6) 05/12/20 07:51 Baso % (Auto) 0.8 % (0-2) 05/12/20 07:51 Absolute Neuts (auto) 11.9 10^3/uL (1.7-8.2) H 05/12/20 07:51 Absolute Lymphs (auto) 1.0 10^3/uL (0.5-4.7) 05/12/20 07:51 Absolute Monos (auto) 1.6 10^3/uL (0.1-1.4) H 05/12/20 07:51 Absolute Eos (auto) 0.2 10^3/uL (0.0-0.6) 05/12/20 07:51 Absolute Basos (auto) 0.1 10^3/uL (0.0-0.2) 05/12/20 07:51 Seg Neutrophils % 80.1 % (42-78) H 05/12/20 07:51 Platelet Estimate Cancelled 05/12/20 05:00 PT 20.6 SEC (11.4-15.4) H 05/13/20 04:54 INR 1.75 05/13/20 04:54 Sodium 131.2 mmol/L (137-145) L 05/14/20 06:09 Potassium 3.4 mmol/L (3.6-5.0) L 05/14/20 06:09 Chloride 99 mmol/L (98-107) 05/14/20 06:09 Carbon Dioxide 19 mmol/L (22-30) L 05/14/20 06:09 Anion Gap 13 (5-19) 05/14/20 06:09 BUN 15 mg/dL (7-20) 05/14/20 06:09 Creatinine 1.04 mg/dL (0.52-1.25) 05/14/20 06:09 Est GFR ( Amer) > 60 (>60) 05/14/20 06:09 Est GFR (MDRD) Non-Af > 60 (>60) 05/14/20 06:09 Glucose 138 mg/dL (75-110) H 05/14/20 06:09 Calcium 8.4 mg/dL (8.4-10.2) 05/14/20 06:09 Magnesium 1.8 mg/dL (1.6-2.3) 05/12/20 05:00 Total Bilirubin 13.7 mg/dL (0.2-1.3) H 05/12/20 05:00 Direct Bilirubin 11.8 mg/dL (0.0-0.4) H 05/12/20 05:00 Neonat Total Bilirubin Not Reportable 05/12/20 05:00 Neonat Direct Bilirubin Not Reportable 05/12/20 05:00 Neonat Indirect Bili Not Reportable 05/12/20 05:00 AST 104 U/L (17-59) H 05/12/20 05:00 ALT 30 U/L (<50) 05/12/20 05:00 Alkaline Phosphatase 191 U/L (38-126) H 05/12/20 05:00 Ammonia 45.6 umol/L (9-33) H 05/11/20 10:50 Lactate Dehydrogenase 152 U/L (120-246) 05/13/20 04:54 Troponin I < 0.012 ng/mL 05/11/20 13:36 NT-Pro-B Natriuret Pep 455 pg/mL (<125) H 05/11/20 10:50 Total Protein 5.5 g/dL (6.3-8.2) L 05/12/20 05:00 Albumin 2.2 g/dL (3.5-5.0) L 05/13/20 04:54 Lipase < 10.0 U/L (23-300) L 05/11/20 12:44 Urine Color BROWN 05/11/20 15:19 Urine Appearance CLOUDY 05/11/20 15:19 Urine pH 5.0 (5.0-9.0) 05/11/20 15:19 Ur Specific Allred 1.030 05/11/20 15:19 Urine Protein 100 mg/dL (NEGATIVE) H 05/11/20 15:19 Urine Glucose (UA) 50 mg/dL (NEGATIVE) H 05/11/20 15:19 Urine Ketones NEGATIVE mg/dL (NEGATIVE) 05/11/20 15:19 Urine Blood LARGE (NEGATIVE) H 05/11/20 15:19 Urine Nitrite NEGATIVE (NEGATIVE) 05/11/20 15:19 Urine Bilirubin MODERATE (NEGATIVE) H 05/11/20 15:19 Urine Urobilinogen 2.0 mg/dL (<2.0) H 05/11/20 15:19 Ur Leukocyte Esterase NEGATIVE (NEGATIVE) 05/11/20 15:19 Urine RBC (Auto) >182 /HPF 05/11/20 15:19 Squamous Epi Cells Auto 3 /HPF 05/11/20 15:19 Urine Mucus (Auto) MANY /LPF 05/11/20 15:19 Urine Ascorbic Acid NEGATIVE (NEGATIVE) 05/11/20 15:19 Fluid Type PERITONEAL 05/13/20 11:10 Fluid Source ASCITES 05/13/20 11:10 Fluid Color YELLOW 05/13/20 11:10 Fluid Appearance CLEAR 05/13/20 11:10 Fluid Viscosity LIQUID 05/13/20 11:10 Fluid WBC 77 /uL 05/13/20 11:10 Fluid RBC 66 /uL 05/13/20 11:10 Fluid Seg Neutrophils 55 % 05/13/20 11:10 Fluid Lymphocytes 34 % 05/13/20 11:10 Fluid Monocytes 10 % 05/13/20 11:10 Fluid Eosinophils 0 % 05/13/20 11:10 Fluid Basophils 1 % 05/13/20 11:10 Fluid Glucose 154 mg/dL (.) 05/13/20 11:10 Fluid Albumin 0.2 g/dL (Not Estab.) 05/13/20 11:10 Fluid LDH 38 IU/L (.) 05/13/20 11:10 Fluid Amylase 10 U/L (.) 05/13/20 11:10 Serum Alcohol < 10 mg/dL (NONE DETECTED) 05/11/20 12:44 Slides for Path Review SEE COMMENT 05/13/20 11:10 05/11/20 05/11/20 10:50 13:36 Troponin I < 0.012 NT-Pro-B Natriuret Pep 455 H Impressions: Chest X-Ray 05/11/20 10:46 IMPRESSION: Small pleural effusions no other significant findings. Abdomen Ultrasound 05/11/20 15:39 IMPRESSION: 1. Hepatomegaly. Diffuse increased coarsened echotexture and nodular contour to the liver raising question of possible cirrhosis of the liver. Please see CT abdomen report dated 04/25/2020. 2. Moderate amount of ascites. 3. The pancreas, common bile duct, and distal segment of the abdominal aorta are obscured by overlying bowel gas. 4. Gallbladder sludge. Diffuse gallbladder wall thickening and question of small amount of pericholecystic fluid. 5. Nonobstructing right renal calculus. Paracentesis Ultrasound 05/13/20 00:00 IMPRESSION: Successful ultrasound-guided paracentesis Plan Plan of Treatment: Follow-up with PCP Follow-up with GI Time Spent: Greater than 30 Minutes Stroke Is this a Stroke Patient?: No Acute Heart Failure Is this a Heart Failure Patient?: No
[2020-05-14 15:54] VITALS: BP 96/56
[2020-05-14] MEDS ORDERED: PHARMACY COMMUNICATION ORDER MC SCH (22:00)
== END 2020-05-14 16:28 | disposition home health service (06) | DRG 433 ==
LOC: ER 10:11 → EH 17:45 → 4W 21:57
PROVIDERS: ADMIT Internal Medicine; ATTEND Internal Medicine
PROC: 0W9G3ZX Drainage of Peritoneal Cavity, Percutaneous Approach, Diagnostic (ICD-10-PCS; principal; 2020-05-13)
DX: K70.31 Alcoholic cirrhosis of liver with ascites (principal); E87.1 Hypo-osmolality and hyponatremia; D61.818 Other pancytopenia; K86.1 Other chronic pancreatitis; I85.00 Esophageal varices without bleeding; K57.90 Diverticulosis of intestine, part unspecified, without perforation or abscess without bleeding; E87.6 Hypokalemia; F17.200 Nicotine dependence, unspecified, uncomplicated; D72.829 Elevated white blood cell count, unspecified; F10.10 Alcohol abuse, uncomplicated; K72.10 Chronic hepatic failure without coma; R16.0 Hepatomegaly, not elsewhere classified
CPT/HCPCS: 36415; 49083; 71045; 76705; 80048; 80053; 80307; 81001; 82040; 82042; 82140; 82150; 82945; 83615; 83690; 83735; 83880; 83986; 84484; 85025; 85610; 87040; 87070; 87075; 87077; 87101; 87150; 87205; 88305; 88341; 88342; 89050; 93005; 93010; 96374; 99285; J0696; J1644; J1940; J3490; P9047

== ENCOUNTER 2020-05-22 22:43 | Inpatient (IN) | payer SELFPAY ==
--- NOTE | 2020-05-22 23:19 | ER Document Report ---
ED Medical Screen (RME) - General Chief Complaint: Diarrhea Stated Complaint: NAUSEA/VOMITING/DIARRHEA Time Seen by Provider: 05/22/20 23:07 TRAVEL OUTSIDE OF THE [place] IN LAST 30 DAYS: No - HPI Notes: 05/22/20 23:17 55-year-old male with past medical history for cirrhosis of liver to the emergency department with complaints of diarrhea for the past 2 days and increasing abdominal swelling and pain. He states that about 2 weeks ago he had a paracentesis and he was doing pretty well. He states that the past 2 days things have been on the decline. He admits to profuse watery diarrhea with an unknown amount of occurrences because it so frequent. Admits to subjective fevers and chills but has not measured his temperature. He states that he is on antibiotics but review of his outpatient meds does not show an antibiotic. He was last admitted to the hospital for anasarca and liver failure at the end of April. He is followed at [facility]. On brief medical screening exam, patient is significantly jaundiced and has ascites to the belly. He has positive fluid wave. Tender to palpation throughout the abdomen. I performed a brief medical screening exam on the patient determined that the patient needs further evaluation and management by main side provider. I have placed initial orders to help expedite care. - Related Data Allergies/Adverse Reactions: No Known Allergies Allergy (Verified 04/22/20 12:23) Past Medical History Renal/ Medical History: Denies: Hx Peritoneal Dialysis Psychiatric Medical History: Denies: Hx Depression - Immunizations Hx Diphtheria, Pertussis, Tetanus Vaccination: No
[2020-05-23 01:19] LABS: INTERNATIONAL RATION (INR) 1.81; PROTHROMBIN TIME 21.1 SEC (11.4-15.4)
[2020-05-23 01:20] LABS: PARTIAL THROMBOPLASTIN TIME 52.6 SEC (23.5-35.8)
[2020-05-23 01:27] LABS: ALBUMIN 2.6 g/dL (3.5-5.0); ALKALINE PHOSPHATASE 286 U/L (38-126); ANION GAP 14 (5-19); ASPARTATE AMINO TRANSFERASE 95 U/L (17-59); BILIRUBIN,DIRECT 16.5 mg/dL (0.0-0.4); BILIRUBIN,TOTAL 18.5 mg/dL (0.2-1.3); BLOOD UREA NITROGEN 19 mg/dL (7-20); CALCIUM 8.9 mg/dL (8.4-10.2); CARBON DIOXIDE 21 mmol/L (22-30); CHLORIDE 94 mmol/L (98-107); GLUCOSE 114 mg/dL (75-110); POTASSIUM 3.8 mmol/L (3.6-5.0)
--- NOTE | 2020-05-23 02:12 | ER Document Report ---
ED GI/ - General Chief Complaint: Diarrhea Stated Complaint: NAUSEA/VOMITING/DIARRHEA Time Seen by Provider: 05/23/20 01:38 Information source: Patient Notes: Patient presents with a history of cirrhosis and ascites. Patient presents complaining of increased abdominal pain and swelling for the past 2 days. Patient states that he has had increased diarrhea times numerous episodes. Patient does acknowledge having his lactulose dose increased recently. Patient reports subjective fever and chills. Patient denies any nausea or vomiting. Patient reports decreased oral intake due to dental issues. Patient denies any alcohol use since April of this year. Patient's last paracentesis was 2 weeks ago. TRAVEL OUTSIDE OF THE [place] IN LAST 30 DAYS: No - HPI Patient complains to provider of: Abdominal pain. No: Vomiting Onset: Other - 2 days Timing/Duration: Worse Quality of pain: Sharp Pain Level: 5 Location: LLQ, RLQ Associated symptoms: Chills, Diarrhea, Fever, Loss of appetite. denies: Blood in stool, Dizzy, Nausea, Urinary hesitancy, Urinary frequency, Urinary retention, Urinary urgency, Vomiting Exacerbated by: Denies Relieved by: Denies Similar symptoms previously: Yes Recently seen / treated by doctor: No - Related Data Allergies/Adverse Reactions: No Known Allergies Allergy (Verified 04/22/20 12:23) Past Medical History - General Information source: Patient - Social History Smoking Status: Never Smoker Frequency of alcohol use: Former drinker Drug Abuse: None Occupation: None Lives with: Spouse/Significant other Family History: None, Reviewed & Not Pertinent, Arthritis - Past Medical History Cardiac Medical History: Reports: Other - Hyponatremia Renal/ Medical History: Denies: Hx Peritoneal Dialysis GI Medical History: Reports: Hx Cirrhosis, Hx Pancreatitis, Other - Liver mass, esophageal varices Psychiatric Medical History: Denies: Hx Depression Surgical Hx: Negative - Immunizations Hx Diphtheria, Pertussis, Tetanus Vaccination: No Review of Systems - Review of Systems Constitutional: Chills, Fever EENT: No symptoms reported Cardiovascular: No symptoms reported. denies: Chest pain Respiratory: No symptoms reported. denies: Cough, Short of breath Gastrointestinal: Abdominal pain, Diarrhea, Poor appetite. denies: Nausea, Vomiting Genitourinary: No symptoms reported. denies: Dysuria Male Genitourinary: No symptoms reported Musculoskeletal: No symptoms reported. denies: Back pain Skin: No symptoms reported Hematologic/Lymphatic: No symptoms reported Neurological/Psychological: No symptoms reported Physical Exam - Vital signs Vitals: Temp Pulse Resp BP Pulse Ox 97.7 F 115 H 20 95/64 L 98 05/22/20 23:18 05/22/20 23:18 05/22/20 23:18 05/22/20 23:18 05/22/20 23:18 - General General appearance: Alert In distress: Mild - HEENT Head: Normocephalic Eyes: Scleral icterus Nasal: Normal Mouth/Lips: Normal Neck: Normal - Respiratory Respiratory status: No respiratory distress Chest status: Nontender Breath sounds: Normal. No: Rales, Rhonchi, Stridor, Wheezing Chest palpation: Normal - Cardiovascular Rhythm: Tachycardia Heart sounds: S1 appreciated, S2 appreciated - Abdominal Distension: Fluid wave Bowel sounds: Normal Tenderness: Tender. No: Guarding - Back Back: Normal - Extremities General upper extremity: Normal inspection, Normal ROM General lower extremity: Normal inspection, Normal ROM - Neurological Neuro grossly intact: Yes Cognition: Normal [place] Coma Scale Eye Opening: Spontaneous [place] Coma Scale Verbal: Oriented [place] Coma Scale Motor: Obeys Commands [place] Coma Scale Total: 15 - Psychological Associated symptoms: Normal affect, Normal mood - Skin Skin Temperature: Warm Skin Moisture: Dry Skin Color: Jaundiced Course - Re-evaluation Re-evalutation: 05/23/20 05:[address] Kim regarding patient presentation and diagnostic evaluation, she advises consultation with hospitalist for admission given concerns about possible patient with reported fever, leukocytosis and increased abdominal pain and swelling worrisome for spontaneous bacterial peritonitis. 05/23/20 05:[address] Michelle who agrees to come and evaluate patient for admission. Patient's CT scan report reviewed, patient with ascites noted. Patient with a leukocytosis and increase in creatinine. Patient with periumbilical tenderness on repeat abdominal exam with fluid wave. - Vital Signs Vital signs: Temp Pulse Resp BP Pulse Ox 98.2 F 108 H 13 101/71 97 05/22/20 23:26 05/22/20 23:26 05/23/20 05:09 05/23/20 05:09 05/23/20 05:09 - Laboratory Result Diagrams: 05/23/20 02:50 05/23/20 00:57 Laboratory results interpreted by me: 05/23/20 05/23/20 05/23/20 00:57 00:57 02:50 WBC 27.8 H RBC 2.93 L Hgb 10.1 L Hct 29.7 L MCV 101 H D MCH 34.4 H RDW 14.8 H Seg Neuts % (Manual) 79 H Lymphocytes % (Manual) 10 L Abs Neuts (Manual) 22.0 H Abs Monocytes (Manual) 2.8 H PT 21.1 H APTT 52.6 H Sodium 129.0 L Chloride 94 L Carbon Dioxide 21 L Creatinine 1.70 H Est GFR ( Amer) 51 L Est GFR (MDRD) Non-Af 42 L Glucose 114 H Total Bilirubin 18.5 H Direct Bilirubin 16.5 H AST 95 H Alkaline Phosphatase 286 H Albumin 2.6 L Lipase < 10.0 L 05/23/20 06:45 Labs- All tests 24 hr 05/23/20 05/23/20 05/23/20 00:57 00:57 00:57 WBC Cancelled RBC Cancelled Hgb Cancelled Hct Cancelled MCV Cancelled MCH Cancelled MCHC Cancelled RDW Cancelled Plt Count Cancelled Lymph % (Auto) Cancelled [place] % (Auto) Cancelled Eos % (Auto) Cancelled Baso % (Auto) Cancelled Absolute Neuts (auto) Cancelled Absolute Lymphs (auto) Cancelled Absolute Monos (auto) Cancelled Absolute Eos (auto) Cancelled Absolute Basos (auto) Cancelled Total Counted Seg Neutrophils % Cancelled Seg Neuts % (Manual) Lymphocytes % (Manual) Monocytes % (Manual) Eosinophils % (Manual) Basophils % (Manual) Abs Neuts (Manual) Abs Lymphs (Manual) Abs Monocytes (Manual) Absolute Eos (Manual) Abs Basophils (Manual) Toxic Granulation Platelet Estimate Cancelled Clumped Platelets Platelet Comment Anisocytosis Macrocytosis PT 21.1 H INR 1.81 APTT 52.6 H Sodium 129.0 L Potassium 3.8 Chloride 94 L Carbon Dioxide 21 L Anion Gap 14 BUN 19 Creatinine 1.70 H Est GFR ( Amer) 51 L Est GFR (MDRD) Non-Af 42 L Glucose 114 H Calcium 8.9 Magnesium 1.8 Total Bilirubin 18.5 H Direct Bilirubin 16.5 H Neonat Total Bilirubin Not Reportable Neonat Direct Bilirubin Not Reportable Neonat Indirect Bili Not Reportable AST 95 H ALT 25 Alkaline Phosphatase 286 H Ammonia Total Protein 7.0 Albumin 2.6 L Lipase < 10.0 L Slides for Path Review Cancelled 05/23/20 05/23/20 00:57 02:50 WBC 27.8 H RBC 2.93 L Hgb 10.1 L Hct 29.7 L MCV 101 H D MCH 34.4 H MCHC 33.9 RDW 14.8 H Plt Count 206 Lymph % (Auto) Not Reportable [place] % (Auto) Not Reportable Eos % (Auto) Not Reportable Baso % (Auto) Not Reportable Absolute Neuts (auto) Not Reportable Absolute Lymphs (auto) Not Reportable Absolute Monos (auto) Not Reportable Absolute Eos (auto) Not Reportable Absolute Basos (auto) Not Reportable Total Counted 100 Seg Neutrophils % Not Reportable Seg Neuts % (Manual) 79 H Lymphocytes % (Manual) 10 L Monocytes % (Manual) 10 Eosinophils % (Manual) 1 Basophils % (Manual) 0 Abs Neuts (Manual) 22.0 H Abs Lymphs (Manual) 2.8 Abs Monocytes (Manual) 2.8 H Absolute Eos (Manual) 0.3 Abs Basophils (Manual) 0.0 Toxic Granulation SLIGHT Platelet Estimate Clumped Platelets PRESENT Platelet Comment ADEQUATE Anisocytosis SLIGHT Macrocytosis 2+ PT INR APTT Sodium Potassium Chloride Carbon Dioxide Anion Gap BUN Creatinine Est GFR ( Amer) Est GFR (MDRD) Non-Af Glucose Calcium Magnesium Total Bilirubin Direct Bilirubin Neonat Total Bilirubin Neonat Direct Bilirubin Neonat Indirect Bili AST ALT Alkaline Phosphatase Ammonia 29.4 Total Protein Albumin Lipase Slides for Path Review - Diagnostic Test Radiology reviewed: Reports reviewed Discharge - Discharge Clinical Impression: Liver mass, Chronic hyponatremia Cirrhosis of liver Qualifiers: Hepatic cirrhosis type: unspecified hepatic cirrhosis Ascites presence: with a scites Qualified Code(s): K74.60 - Unspecified cirrhosis of liver Ascites Qualifiers: Ascites type: due to alcoholic cirrhosis Qualified Code(s): K70.31 - Alcoholic cirrhosis of liver with ascites Condition: Fair Disposition: ADMITTED OBSERVATION Admitting Provider: taz Unit Admitted: Medical Floor
[2020-05-23 03:29] LABS: HEMATOCRIT 29.7 % (37.9-51.0); HEMOGLOBIN 10.1 g/dL (13.5-17.0); MEAN CORPUSCULAR HEMOGLOBIN 34.4 pg (27.0-33.4); MEAN CORPUSCULAR HGB CONC 33.9 g/dL (32.0-36.0); RED BLOOD COUNT 2.93 10^6/uL (4.35-5.55); RED CELL DISTRIBUTION WIDTH 14.8 % (11.5-14.0); WHITE BLOOD COUNT 27.8 10^3/uL (4.0-10.5)
[2020-05-23 03:32] LABS: MEAN CORPUSCULAR VOLUME 101 fl (80-97); PLATELET COUNT 206 10^3/uL (150-450)
[2020-05-23 03:33] LABS: ABSOLUTE LYMPHOCYTES# (MANUAL) 2.8 10^3/uL (0.5-4.7); ABSOLUTE MONOCYTES # (MANUAL) 2.8 10^3/uL (0.1-1.4); BASOPHILS % (MANUAL) 0 % (0-2); EOSINOPHILS % (MANUAL) 1 % (0-6); LYMPHOCYTES % (MANUAL) 10 % (13-45); MONOCYTES % (MANUAL) 10 % (3-13); SEGMENTED NEUTROPHILS % (MAN) 79 % (42-78); TOTAL CELLS COUNTED 100; TOXIC GRANULATION SLIGHT
[2020-05-23 03:35] LABS: ANISOCYTOSIS SLIGHT; PLATELET CLUMPS PRESENT; PLATELET COMMENT ADEQUATE
[2020-05-23] MEDS ORDERED: CEFTRIAXONE 1 GM/D5W RTU 1 GM/50 ML RTUPB IV ONE (03:48)
[2020-05-23] MEDS ORDERED: FENTANYL CITRATE INJ/PF 100 MCG/2 ML AMPUL IV ONE (04:20)
--- NOTE | 2020-05-23 05:33 | RADIOLOGY REPORT (SQ) ---
EXAM DESCRIPTION: CT ABDOMEN PELVIS WITH IV CONTRAST COMPLETED DATE/TME: 05/23/2020 03:54 INDICATION: Abdominal pain, acute. TECHNIQUE: Contiguous axial CT images of the abdomen and pelvis. Intravenous contrast: Present. Oral contrast: Absent. DLP 1324 mGy-cm. This exam was performed according to our departmental dose-optimization program, which includes automated exposure control, adjustment of the mA and/or kV according to patient size and/or use of iterative reconstruction technique. COMPARISON: 04/25/2020. FINDINGS: Lower chest: Partially imaged. Lung bases: Small left pleural effusion with dependent atelectasis of the left lower lobe. Cardiac apex: Unremarkable. Solid abdominal viscera: Liver: Numerous and confluent hepatic lesions are again noted. Portal vein is patent Gallbladder: Nonspecific gallbladder wall thickening. Pancreas: Unremarkable. Spleen: Unremarkable. Adrenal glands: Unremarkable. Right kidney: Previously seen 5 mm stone along the lower pole has migrated into the renal pelvis without significant hydronephrosis. Left kidney: No hydronephrosis. Urinary bladder: Unremarkable. Abdominal aorta: Mild atherosclerotic calcifications. Peritoneal: Free fluid: Large Free air: None. Other: No pathologic sized lymph nodes in the upper abdomen. Bowel: Stomach: Esophageal varices are noted. Small bowel: Unremarkable. Appendix: Not uniquely identified Colon: Diverticulosis without evidence of diverticulitis. Rectum: Unremarkable. Prostate: Unremarkable. Bones: Multilevel spondylosis, worst at L3-L4. No lytic or blastic bone lesion IMPRESSION: Previous seen 5 mm stone along the lower pole of the right kidney has migrated into the right renal pelvis without significant hydronephrosis. Stable appearance of the liver with findings of metastasis. Development of a small left pleural effusion. Large amount of ascites. Diverticulosis without evidence of diverticulitis.
[2020-05-23] MEDS: PANTOPRAZOLE SODIUM 40 MG TABLET.DR PO SCH (07:50)
--- NOTE | 2020-05-23 08:22 | PDOC H&P ---
History of Present Illness Admission Date/PCP: 05/23/2020 Patient complains of: Abdominal pain, distention History of Present Illness: KENNETH MCCLELLAND is a 55 year old male with a history of alcoholic cirrhosis, liver mass, esophageal varices, tobacco and alcohol dependence, diverticulosis now presents with 2 days duration of abdominal pain and a progressively increasing abdominal and bilateral lower extremity swelling. He describes the pain as generalized but more pronounced in the epigastric area, sharp, 8/10 intensity with no radiation. No aggravating or relieving factors noted. Asso ciated with over the past 2 days he has been having frequent watery diarrhea. Patient reports that he has generalized weakness and chills but denies fever. He denies any nausea, vomiting, melena, hematemesis or hematochezia. Denies shortness of breath, cough, chest pain, dysuria, any skin rash. He reports that his last alcohol use was more than a month ago. Past Medical History Psychiatric Medical History: Denies: Depression Social History Information Source: Patient Smoking Status: Never Smoker Frequency of Alcohol Use: None Hx Recreational Drug Use: No Drugs: None Hx Prescription Drug Abuse: No - Advance Directive Resuscitation Status: Full Code Family History Family History: None, Reviewed & Not Pertinent, Arthritis Parental Family History Reviewed: Yes Children Family History Reviewed: Yes Sibling(s) Family History Reviewed.: Yes Medication/Allergy Home Medications: Calcium Carbonate [Tums Chewable 500 mg Tab.chew] 500 mg PO MEALSHS #30 tab.chew 04/29/20 Folic Acid [Folvite 1 mg Tablet] 1 mg PO DAILY #30 tablet 04/29/20 Nicotine [Nicoderm 21 mg/24 Hr Transderm Patch] 1 each TD DAILY 30 Days patch.td24 04/29/20 Pantoprazole Sodium [Protonix [address] Tablet] 40 mg PO DAILY #30 tablet.dr 04/29/20 Sodium Bicarbonate [Sodium Bicarbonate 650 mg Tablet] 650 mg PO AC #90 tablet 04/29/20 Thiamine HCl [Thiamine 100 mg Tablet] 100 mg PO DAILY #30 tablet 04/29/20 Furosemide [Lasix 40 mg Tablet] 40 mg PO DAILY #30 tablet 05/14/20 Lactulose [Kristalose 10 gm Packet] 10 gm PO BID #30 packet 05/14/20 Midodrine HCl [Proamatine 5 mg Tablet] 5 mg PO TID #90 tablet 05/14/20 Potassium Chloride [Potassium Chloride 20 Meq Packet] 20 meq PO DAILY #30 packet 05/14/20 Spironolactone [Aldactone 25 mg Tablet] 100 mg PO DAILY #30 tablet 05/14/20 Allergies/Adverse Reactions: No Known Allergies Allergy (Verified 04/22/20 12:23) Review of Systems Constitutional: PRESENT: anorexia, chills, fatigue Eyes: ABSENT: visual disturbances Ears: ABSENT: hearing changes Nose, Mouth, and Throat: ABSENT: as per HPI, headache(s), mouth pain, sore throat, vertigo, other Cardiovascular: ABSENT: chest pain, dyspnea on exertion, edema, orthropnea, palpitations Respiratory: ABSENT: cough, hemoptysis Gastrointestinal: PRESENT: as per HPI Genitourinary: ABSENT: dysuria, hematuria Musculoskeletal: ABSENT: joint swelling Integumentary: ABSENT: rash, wounds Neurological: ABSENT: abnormal gait, abnormal speech, confusion, dizziness, focal weakness, syncope Psychiatric: ABSENT: anxiety, depression, homidical ideation, suicidal ideation Endocrine: ABSENT: cold intolerance, heat intolerance, polydipsia, polyuria Hematologic/Lymphatic: ABSENT: easy bleeding, easy bruising Physical Exam Vital Signs: Temp Pulse Resp BP Pulse Ox 98.2 F 108 H 13 101/71 97 05/22/20 23:26 05/22/20 23:26 05/23/20 05:09 05/23/20 05:09 05/23/20 05:09 Intake & Output 05/21/20 05/22/20 05/23/20 06:59 06:59 06:59 Intake Total 50 Balance 50 Weight 73.3 kg Additional comments: GENERAL APPEARANCE: Alert and oriented x3, no acute distress HEENT: Normocephalic and atraumatic. No scleral icterus. Moist oral mucosa NECK: Supple. No lymphadenopathy or tenderness. No carotid bruit. No JVD CHEST: Symmetric. Nontender to palpation. LUNGS: Clear with good air entry bilaterally, no wheezing or crackles HEART: Regular rate and rhythm with normal S1 and S2. No murmurs, gallops, or rubs. ABDOMEN: Distended, active bowel sounds, has direct tenderness more marked in the epigastric area. Shifting dullness and fluid thrill positive EXTREMITIES: Has +2 pitting edema MUSCULOSKELETAL: No deformity, atrophy or swelling noted PSYCHIATRIC: Recent and remote memory is intact. Appropriate mood and affect. SKIN: Warm, dry, and well perfused. No lesions or rashes are noted. NEUROLOGIC: No focal sensory or motor deficits are noted. Results Laboratory Results: 05/23/20 02:50 05/23/20 00:57 05/23/20 05/23/20 05/23/20 00:57 00:57 00:57 WBC Cancelled RBC Cancelled Hgb Cancelled Hct Cancelled MCV Cancelled MCH Cancelled MCHC Cancelled RDW Cancelled Plt Count Cancelled Seg Neutrophils % Cancelled Sodium 129.0 L Potassium 3.8 Chloride 94 L Carbon Dioxide 21 L Anion Gap 14 BUN 19 Creatinine 1.70 H Est GFR ( Amer) 51 L Glucose 114 H Calcium 8.9 Magnesium 1.8 Total Bilirubin 18.5 H AST 95 H Alkaline Phosphatase 286 H Ammonia 29.4 Total Protein 7.0 Albumin 2.6 L Lipase < 10.0 L 05/23/20 02:50 WBC 27.8 H RBC 2.93 L Hgb 10.1 L Hct 29.7 L MCV 101 H D MCH 34.4 H MCHC 33.9 RDW 14.8 H Plt Count 206 Seg Neutrophils % Not Reportable Sodium Potassium Chloride Carbon Dioxide Anion Gap BUN Creatinine Est GFR ( Amer) Glucose Calcium Magnesium Total Bilirubin AST Alkaline Phosphatase Ammonia Total Protein Albumin Lipase Impressions: Abdomen/Pelvis CT 05/23/20 03:54 IMPRESSION: Previous seen 5 mm stone along the lower pole of the right kidney has migrated into the right renal pelvis without significant hydronephrosis. Stable appearance of the liver with findings of metastasis. Development of a small left pleural effusion. Large amount of ascites. Diverticulosis without evidence of diverticulitis. Assessment and Plan - Diagnosis (1) Spontaneous bacterial peritonitis Is this a current diagnosis for this admission?: Yes Plan: Presented with abdominal pain, distention, subjective fever Diffuse tenderness especially at the epigastric area Has leukocytosis of 27.8k CT abdomen showed large ascites, left small pleural effusion and numerous confluent hepatic lesion which are unchanged from the previous study Started on ceftriaxone Currently not on beta-pam Will administer albumin with paracentesis Follow-up with blood cultures Diagnostic and therapeutic paracentesis will be done (2) Ascites due to alcoholic cirrhosis Is this a current diagnosis for this admission?: Yes Plan: Patient had therapeutic paracentesis with removal of 4.5 L of IV fluid 10 days back INR on the encounter is 1.8 We will consult IR for paracentesis (3) Acute kidney injury Is this a current diagnosis for this admission?: Yes Plan: Likely hepatorenal Due to patient current state of volume overload will continue Lasix and spironolactone Will give albumin Continue to monitor renal indicis Renally dose medications (4) Liver mass Is this a current diagnosis for this admission?: Yes Plan: Have been extensively worked up in his last admission Biopsy showed no sign of malignancy per oncology notes Likely changes associated with cirrhosis chronic liver disease (5) Alcoholic cirrhosis Qualifiers: Ascites presence: with ascites Qualified Code(s): K70.31 - Alcoholic cirrhosis of liver with ascites Is this a current diagnosis for this admission?: Yes Plan: Currently alert oriented x3 and has no asterixis Child Madrid class C with perioperative mortality of 82% and life expectancy of 1 to 3 years Meld score : 32 indicating an estimated 3-month mortality of 52.6% Continue lactulose, Lasix and spironolactone (6) Coagulopathy Is this a current diagnosis for this admission?: Yes Plan: INR on this admission 1.8 We will continue to monitor PT/PTT/INR (7) Leukocytosis Qualifiers: Leukocytosis type: other Qualified Code(s): D72.828 - Other elevated white blood cell count Is this a current diagnosis for this admission?: Yes Plan: Likely due to SBP Continue management as stated above (8) Hyponatremia Is this a current diagnosis for this admission?: Yes Plan: Chronic hyponatremia likely due to volume overload with cirrhosis - Time Time Spent with patient: 35 or more minutes Total Critical Time (Minutes): 45 Medications reviewed and adjusted accordingly: Yes Anticipated Discharge Disposition: Home with Home Health Anticipated Discharge Timeframe: within 48 hours - Inpatient Certification Based on my medical assessment, after consideration of the patient's comorbidities, presenting symptoms, or acuity I expect that the services needed warrant INPATIENT care.: Yes I certify that my determination is in accordance with my understanding of Medicare's requirements for reasonable and necessary INPATIENT services [42 CFR 412.3e].: Yes Medical Necessity: Significant Comorbidiites Make Outpatient Treatment Too Risky, Need Close Monitoring Due to Risk of Patient Decompensation, Need for IV Antibiotics, Risk of Complication if Not Cared For in Hospital Post Hospital Care: D/C or Transfer Summary
[2020-05-23] MEDS: SPIRONOLACTONE 25 MG TABLET PO SCH (10:07)
[2020-05-23] MEDS: FOLIC ACID 1 MG TABLET PO SCH (10:07)
[2020-05-23] MEDS: LACTULOSE SYRUP 20 GM/30 ML UDCUP PO SCH ×2 (10:08→21:55)
[2020-05-23] MEDS: FUROSEMIDE 40 MG TABLET PO SCH (10:08)
[2020-05-23 10:42] LABS: ALBUMIN 2.5 g/dL (3.5-5.0)
[2020-05-23] MEDS: CEFTRIAXONE 2 GM/D5W RTU 2 GM/50 ML RTUPB IV SCH (10:56)
[2020-05-23 14:31] LABS: FLUID SOURCE ASCITES; FLUID TYPE PERITONEAL
[2020-05-23 14:32] LABS: FLUID APPEARANCE CLEAR; FLUID COLOR YELLOW; FLUID VISCOSITY LIQUID
[2020-05-23] MEDS: MIDODRINE HCL 5 MG TABLET PO SCH ×2 (15:10→18:06)
--- NOTE | 2020-05-23 17:26 | Progress Note ---
Provider Note Provider Note: Patient management this morning by Dr. Stone, please see full H&P for details of admission. I spent a great deal of time speaking to the patient and his family today regarding the plan going forward and the previous few admissions the patient has had here. Each time I have seen the patient on previous admissions he was significantly improved by discharge and appeared to be approaching his baseline, however each time he comes back for another admission he looks much weaker and much sicker. I believe this is progression of his liver cirrhosis. With his new GANESH, large volume ascites, high leukocytosis, I am very concerned that he may be developing SBP. I calculated his DF to be 63.1 which confers a 25 to 35% mortality over the next 1 month. He qualifies for use of prednisolone 40 mg daily however in the setting of possible acute infection we will hold this. I discussed with his family the possibility that he will need to go home on hospice and there planning to discuss this. The only intervention that would prolong this patient's life in a substantial way would be a liver transplant and he is not a candidate for this due to recently stopping alcohol abuse and the fact that he has no insurance and is not plugged in with a quality control microbiology supervisor who can get him on the transplant list. At this point, I do not believe he would survive a transplant surgery anyway. If he declines over the next few days and I believe he is approaching the end of his life quickly, they would like him to go home with hospice at that time. They will be talking about this possibility over the next few days. I answered many questions and went to great detail describing my plan going forward. Nursing updated as well. Admitting diagnosis: Suspected SBP All aspects of code status discussed with patient/POA including cardioversion, chest compressions, and intubation and the patient/POA indicated they wish to be full code MPOA is designated as: Girlfrefrain, Antoinette Moore Time spent: Greater than 16 minutes
[2020-05-23] MEDS ORDERED: CEFTRIAXONE 1 GM/D5W RTU 1 GM/50 ML RTUPB IV SCH (22:00)
[2020-05-24] MEDS: PANTOPRAZOLE SODIUM 40 MG TABLET.DR PO SCH (05:16)
[2020-05-24 06:20] LABS: HEMATOCRIT 27.7 % (37.9-51.0); HEMOGLOBIN 9.7 g/dL (13.5-17.0); MEAN CORPUSCULAR HEMOGLOBIN 34.8 pg (27.0-33.4); MEAN CORPUSCULAR HGB CONC 34.8 g/dL (32.0-36.0); MEAN CORPUSCULAR VOLUME 100 fl (80-97); PLATELET COUNT 187 10^3/uL (150-450); RED BLOOD COUNT 2.78 10^6/uL (4.35-5.55); RED CELL DISTRIBUTION WIDTH 14.7 % (11.5-14.0); WHITE BLOOD COUNT 26.4 10^3/uL (4.0-10.5)
[2020-05-24 06:36] LABS: ALBUMIN 2.2 g/dL (3.5-5.0); ALKALINE PHOSPHATASE 220 U/L (38-126); ANION GAP 11 (5-19); ASPARTATE AMINO TRANSFERASE 85 U/L (17-59); BILIRUBIN,TOTAL 15.9 mg/dL (0.2-1.3); BLOOD UREA NITROGEN 20 mg/dL (7-20); CALCIUM 8.6 mg/dL (8.4-10.2); CARBON DIOXIDE 23 mmol/L (22-30); CHLORIDE 93 mmol/L (98-107); GLUCOSE 136 mg/dL (75-110); POTASSIUM 3.5 mmol/L (3.6-5.0); TOTAL PROTEIN 5.9 g/dL (6.3-8.2)
[2020-05-24 08:11] LABS: ABSOLUTE LYMPHOCYTES# (MANUAL) 3.2 10^3/uL (0.5-4.7); ABSOLUTE MONOCYTES # (MANUAL) 2.4 10^3/uL (0.1-1.4); BASOPHILS % (MANUAL) 0 % (0-2); EOSINOPHILS % (MANUAL) 1 % (0-6); LYMPHOCYTES % (MANUAL) 12 % (13-45); MONOCYTES % (MANUAL) 9 % (3-13); SEGMENTED NEUTROPHILS % (MAN) 78 % (42-78); TOTAL CELLS COUNTED 100
[2020-05-24 08:13] LABS: ANISOCYTOSIS SLIGHT; HOWELL-JOLLY BODIES PRESENT; PLATELET COMMENT ADEQUATE; TARGET CELLS SLIGHT; TOXIC GRANULATION SLIGHT
[2020-05-24] MEDS ORDERED: ALBUMIN HUMAN 12.5 GM/50 ML RTUINJ IV ONE (09:30)
[2020-05-24] MEDS: FOLIC ACID 1 MG TABLET PO SCH (09:51)
[2020-05-24] MEDS: LACTULOSE SYRUP 20 GM/30 ML UDCUP PO SCH ×2 (09:52→21:00)
[2020-05-24] MEDS: SPIRONOLACTONE 25 MG TABLET PO SCH (09:52)
[2020-05-24] MEDS: FUROSEMIDE 40 MG TABLET PO SCH (09:53)
[2020-05-24] MEDS: THIAMINE HCL 100 MG TABLET PO SCH (09:53)
[2020-05-24] MEDS: MIDODRINE HCL 5 MG TABLET PO SCH ×2 (09:53→16:08)
[2020-05-24] MEDS: POTASSIUM CHLORIDE 20 MEQ PACKET PO SCH (09:54)
[2020-05-24] MEDS: NICOTINE 21 MG/24 HR PATCH.TD24 TD SCH (09:56)
--- NOTE | 2020-05-24 10:15 | RADIOLOGY REPORT (SQ) ---
EXAM DESCRIPTION: U/S ABD PARACENTESIS IMAGES COMPLETED DATE/TIME: 05/23/2020 1:06 pm REASON FOR STUDY: SBP suspected, cirrhosis COMPARISON None. LIMITATIONS: None. PROCEDURE: The procedure, risks, benefits, and alternatives were discussed with the patient and the patient's family who then gave written consent. The right lower quadrant was then marked utilizing s onographic guidance and a time-out was performed to document correct marking verification. The area around the selected percutaneous access site was then prepped and draped with 2% chlorhexidi ne utilizing standard sterile technique. After that, the selected access site was infiltrated with 5 ml of 1% lidocaine. A 6 Ivorian [id number] catheter was then introduced into the fluid-filled p eritoneal cavity and the fluid was aspirated. After the fluid was aspirated, the catheter was removed and the entry site was covered with a sterile bandage. No immediate complications were noted. Volume of Fluid: 5500 mL. Quality of the Fluid: Straw-colored. Was the fluid collected for analysis? Yes. Images acquired during the procedure were submitted to PACS. The patient tolerated the procedure with local anesthesia. At the end of the procedure the patient's condition was unchanged from the preprocedural baseline. Documentation of [id number] time the proceduralist spent monitoring the patient: 15 minutes. IMPRESSION: Successful ultrasound-guided paracentesis. COMMENT: Patient medication list reviewed: Yes- Quality ID# [id number]:Eligible professional attests to doc umenting in the medical record they obtained, updated, or reviewed the patient's current medications. TECHNICAL DOCUMENTATION: JOB ID: [id number] 2010 [employer]- All Rights Reserved Reading location - IP/workstation name: [email or web address]
[2020-05-24] MEDS: OXYCODONE HCL IR 5 MG TABLET PO PRN (16:21)
--- NOTE | 2020-05-24 16:21 | PDOC PROGRESS REPORT ---
Subjective Subjective:: Per Previous Physician: "KENNETH MCCLELLAND is a 55 year old male with a history of alcoholic cirrhosis, liver mass, esophageal varices, tobacco and alcohol dependence, diverticulosis now presents with 2 days duration of abdominal pain and a progressively increasing abdominal and bilateral lower extremity swelling. He describes the pain as generalized but more pronounced in the epigastric area, sharp, 8/10 intensity with no radiation. No aggravating or relieving factors noted. Associated with over the past 2 days he has been having frequent watery diarrhea. Patient reports that he has generalized weakness and chills but denies fever. He denies any nausea, vomiting, melena, hematemesis or hematochezia. Denies shortness of breath, cough, chest pain, dysuria, any skin rash. He reports that his last alcohol use was more than a month ago." 05/24/2020 Patient underwent paracentesis on the results are partially returned now. So far the cell count is not consistent with SBP. He is continued on ceftriaxone for now while we await the final results. Paracentesis cultures are not back yet. I spoke with the patient today about the possibility of hospice in the near future and I believe he will almost certainly end up requiring hospice. His creatinine is improved today which is a good sign Timentin rather concerned about him developing hepatorenal syndrome. We will give him a dose of albumin today. Sodium is a bit lower. I started oxycodone as the patient is in pain due to distended abdomen. I will increase the patient's dose of lactulose/spironolactone/midodrine in hopes that we can remove some additional fluid using the kidneys and may be delay the time to his next required paracentesis. I discussed with him that he will very likely be readmitted in the future and require future paracentesis as well. Patient states he understood that he is likely nearing the end of his life given that he is not a candidate for liver transplant. Reason For Visit: POSSIBLE SPONTANEOUS BACTERIAL PERITONITIS,ALCOHOL Physical Exam Vital Signs: Temp Pulse Resp BP Pulse Ox 97.9 F 106 H 20 99/65 L 98 05/24/20 11:06 05/24/20 11:06 05/24/20 11:06 05/24/20 11:06 05/24/20 11:06 Intake & Output 05/23/20 05/24/20 05/25/20 06:59 06:59 06:59 Intake Total 50 1170 170 Balance 50 1170 170 Weight 73.3 kg 72.8 kg Exam: General appearance: PRESENT: no acute distress, thin and frail appearing, appears chronically ill, states he understands the severity of his illness Head exam: PRESENT: atraumatic, normocephalic Eye exam: PRESENT: conjunctiva pink, notable scleral icterus Mouth exam: PRESENT: moist Respiratory exam: PRESENT: clear to auscultation justin. ABSENT: rales, rhonchi, wheezes Cardiovascular exam: PRESENT: RRR. ABSENT: diastolic murmur, rubs, systolic murmur; +2 BLE edema GI/Abdominal exam: PRESENT: Distended abdomen, somewhat soft, mild tenderness. ABSENT: guarding, mass, organolmegaly, rebound Neurological exam: PRESENT: alert, awake, oriented to person, oriented to place, oriented to time, oriented to situation Psychiatric exam: PRESENT: appropriate affect, normal mood Skin exam: PRESENT: dry, intact, warm Results Laboratory Results: 05/24/20 06:01 05/24/20 06:01 05/24/20 05/24/20 06:01 06:01 WBC 26.4 H RBC 2.78 L Hgb 9.7 L Hct 27.7 L MCV 100 H MCH 34.8 H MCHC 34.8 RDW 14.7 H Plt Count 187 Seg Neutrophils % Not Reportable Sodium 127.4 L Potassium 3.5 L Chloride 93 L Carbon Dioxide 23 Anion Gap 11 BUN 20 Creatinine 1.32 H Est GFR ( Amer) > 60 Glucose 136 H Calcium 8.6 Total Bilirubin 15.9 H AST 85 H Alkaline Phosphatase 220 H Total Protein 5.9 L Albumin 2.2 L Impressions: Paracentesis Ultrasound 05/23/20 00:00 IMPRESSION: Successful ultrasound-guided paracentesis. Abdomen/Pelvis CT 05/23/20 03:54 IMPRESSION: Previous seen 5 mm stone along the lower pole of the right kidney has migrated into the right renal pelvis without significant hydronephrosis. Stable appearance of the liver with findings of metastasis. Development of a small left pleural effusion. Large amount of ascites. Diverticulosis without evidence of diverticulitis. Assessment and Plan - Diagnosis (1) Ascites due to alcoholic cirrhosis Is this a current diagnosis for this admission?: Yes Plan: Per Previous Physician: "Patient had therapeutic paracentesis with removal of 4.5 L of IV fluid 10 days back INR on the encounter is 1.8 We will consult IR for paracentesis" Paracentesis completed 05/23 and had total 5.5 L removed IV albumin infusion Increased dose of Lasix/Aldactone/midodrine to help with diuresis (2) Hyponatremia Is this a current diagnosis for this admission?: Yes Plan: Chronic hyponatremia likely due to volume overload with cirrhosis Trend BMP (3) Portal hypertension Is this a current diagnosis for this admission?: Yes Plan: Ascites analysis consistent with portal hypertension May need to consider TIPS procedure which would require transfer to outside hospital (4) Chronic hypotension Is this a current diagnosis for this admission?: Yes (5) Acute kidney injury Is this a current diagnosis for this admission?: Yes Plan: Per Previous Physician: "Likely hepatorenal Due to patient current state of volume overload will continue Lasix and spironolactone Will give albumin Continue to monitor renal indicis Renally dose medications" Due to volume overload with probable renal hypotension from metabolic derang ement of cirrhosis Does not appear to be hepatorenal as he is already improved without aggressive specific treatment for that condition (6) Alcoholic cirrhosis Qualifiers: Ascites presence: with ascites Qualified Code(s): K70.31 - Alcoholic cirrhosis of liver with ascites Is this a current diagnosis for this admission?: Yes Plan: Per Previous Physician: "Currently alert oriented x3 and has no asterixis Child Madrid class C with perioperative mortality of 82% and life expectancy of 1 to 3 years Meld score : 32 indicating an estimated 3-month mortality of 52.6% Continue lactulose, Lasix and spironolactone " As above - Time Time Spent with patient: 25-34 minutes Medications reviewed and adjusted accordingly: Yes Anticipated Discharge Disposition: Home with Hospice Anticipated Discharge Timeframe: within 72 hours - Inpatient Certification Based on my medical assessment, after consideration of the patient's comorbidities, presenting symptoms, or acuity I expect that the services needed warrant INPATIENT care.: Yes I certify that my determination is in accordance with my understanding of Medic are's requirements for reasonable and necessary INPATIENT services [42 CFR 412.3e].: Yes Medical Necessity: Significant Comorbidiites Make Outpatient Treatment Too Risky, Need Close Monitoring Due to Risk of Patient Decompensation, Need for Pain Control, Need for IV Antibiotics, Risk of Complication if Not Cared For in Hospital, Risk of Diagnosis Which Will Require Inpatient Eval/Care/Monitoring
[2020-05-24] MEDS: CEFTRIAXONE 2 GM/D5W RTU 2 GM/50 ML RTUPB IV SCH (16:22)
[2020-05-24] MEDS ORDERED: MIDODRINE HCL 5 MG TABLET PO SCH (18:00)
[2020-05-25] MEDS: OXYCODONE HCL IR 5 MG TABLET PO PRN ×2 (04:44→16:00)
[2020-05-25] MEDS: PANTOPRAZOLE SODIUM 40 MG TABLET.DR PO SCH (05:00)
--- NOTE | 2020-05-25 05:57 | RADIOLOGY REPORT (SQ) ---
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 Comparison: Ultrasound of abdomen from 05/11/2020 History: 55-year old patient with concern for portal vein thrombosis, portal hypertension. Findings: The visualized portions of the hepatic parenchyma appears diffusely echogenic and coarse. The liver may also be enlarged. There is normal direction of flow is seen in the main portal vein. The main portal vein has pulsatile flow. There is nonspecific gallbladder wall thickening with punctate sludge or cholelithiasis. The common duct measures 2.0 mm. The right kidney measures up to 10.4 cm in length. The right kidney demonstrates normal cortical echogenicity with no evidence to suggest hydronephrosis. The visualized portions of the IVC, abdominal aorta, and pancreatic head appear normal. A small amount of free intraperitoneal fluid is seen. Impression: The liver demonstrates a coarse and heterogeneous echotexture, likely due to underlying hepatic cirrhosis. There is a small amount of free intraperitoneal fluid consistent with ascites. There is nonspecific gallbladder wall thickening with sludge or cholelithiasis seen. The main portal vein has pulsatile flow which can be seen with right heart failure or or hepatic cirrhosis.
[2020-05-25] MEDS ORDERED: LACTULOSE 10 GM PO SCH (10:00)
[2020-05-25 11:03] LABS: ANION GAP 13 (5-19); BLOOD UREA NITROGEN 20 mg/dL (7-20); CALCIUM 8.8 mg/dL (8.4-10.2); CARBON DIOXIDE 21 mmol/L (22-30); CHLORIDE 93 mmol/L (98-107); GLUCOSE 137 mg/dL (75-110); POTASSIUM 3.5 mmol/L (3.6-5.0)
[2020-05-25] MEDS: SPIRONOLACTONE 25 MG TABLET PO SCH (11:29)
[2020-05-25] MEDS: FOLIC ACID 1 MG TABLET PO SCH (11:30)
[2020-05-25] MEDS: MIDODRINE HCL 5 MG TABLET PO SCH ×3 (11:30→17:19)
[2020-05-25] MEDS: FUROSEMIDE 40 MG TABLET PO SCH (11:30)
[2020-05-25] MEDS: NICOTINE 21 MG/24 HR PATCH.TD24 TD SCH (11:31)
[2020-05-25] MEDS: CEFTRIAXONE 2 GM/D5W RTU 2 GM/50 ML RTUPB IV SCH (11:31)
[2020-05-25] MEDS: LACTULOSE SYRUP 20 GM/30 ML UDCUP PO SCH ×2 (11:31→21:42)
[2020-05-25] MEDS: POTASSIUM CHLORIDE 20 MEQ PACKET PO SCH (11:33)
[2020-05-25] MEDS: THIAMINE HCL 100 MG TABLET PO SCH (11:34)
[2020-05-25 13:39] LABS: PATH REVIEW PATHOLOGIST REVIEWED
--- NOTE | 2020-05-25 16:52 | PDOC PROGRESS REPORT ---
Subjective Subjective:: Per Previous Physician: "KENNETH MCCLELLAND is a 55 year old male with a history of alcoholic cirrhosis, liver mass, esophageal varices, tobacco and alcohol dependence, diverticulosis now presents with 2 days duration of abdominal pain and a progressively increasing abdominal and bilateral lower extremity swelling. He describes the pain as generalized but more pronounced in the epigastric area, sharp, 8/10 intensity with no radiation. No aggravating or relieving factors noted. Associated with over the past 2 days he has been having frequent watery diarrhea. Patient reports that he has generalized weakness and chills but denies fever. He denies any nausea, vomiting, melena, hematemesis or hematochezia. Denies shortness of breath, cough, chest pain, dysuria, any skin rash. He reports that his last alcohol use was more than a month ago." 05/24/2020 Patient underwent paracentesis on the results are partially returned now. So far the cell count is not consistent with SBP. He is continued on ceftriaxone for now while we await the final results. Paracentesis cultures are not back yet. I spoke with the patient today about the possibility of hospice in the near future and I believe he will almost certainly end up requiring hospice. His creatinine is improved today which is a good sign considering we were rather concerned about him developing hepatorenal syndrome. We will give him a dose of albumin today. Sodium is a bit lower. I started oxycodone as the patient is in pain due to distended abdomen. I will increase the patient's dose of lactulose/spironolactone/midodrine in hopes that we can remove some additional fluid using the kidneys and may be delay the time to his next required paracen tesis. I discussed with him that he will very likely be readmitted in the future and require future paracentesis as well. Patient states he understood that he is likely nearing the end of his life given that he is not a candidate for liver transplant. 05/25/2020 Patient seems to be doing slightly worse than yesterday. His abdomen has become much more distended in the short time since his previous paracentesis. He is requesting an additional paracentesis. We had a long discussion today about hospice and the patient states he would like to be evaluated for this and set up for hospice. Last night, I have reached out to [facility] to consult GI regarding possible transfer for potential TIPS, however prior discussion GI states patient is not a candidate for TIPS procedure due to very high meld score and they stated it would be extremely risky to perform a TIPS procedure on patient, also noting that he does not meet criteria to have this done inpatient anyway. They had no additional recommendations. I explained all this to the patient he states he understands that he is at the end of his life. He would like to be discharged tomorrow on hospice. He did request having an additional paracentesis prior to discharge and I told him I would set this up. He is now on a higher dose of Lasix and Aldactone although I suspect these will not be effective enough to control his massive ascites that quickly recurs. Reason For Visit: POSSIBLE SPONTANEOUS BACTERIAL PERITONITIS,ALCOHOL Physical Exam Vital Signs: Temp Pulse Resp BP Pulse Ox 97.9 F 102 H 17 105/74 95 05/25/20 12:26 05/25/20 12:26 05/25/20 12:26 05/25/20 13:19 05/25/20 12:26 Intake & Output 05/24/20 05/25/20 05/26/20 06:59 06:59 06:59 Intake Total 1170 835 450 Output Total 460 Balance 1170 375 450 Weight 72.8 kg 73.1 kg 73.1 kg Exam: General appearance: PRESENT: no acute distress, thin and frail appearing, appears chronically ill, appears worse today Head exam: PRESENT: atraumatic, normocephalic Eye exam: PRESENT: conjunctiva pink, notable scleral icterus Mouth exam: PRESENT: moist Respiratory exam: PRESENT: clear to auscultation justin. ABSENT: rales, rhonchi, wheezes Cardiovascular exam: PRESENT: RRR. ABSENT: diastolic murmur, rubs, systolic murmur; +2 BLE edema GI/Abdominal exam: PRESENT: Largely distended abdomen, somewhat tense, mild ten derness. ABSENT: guarding, mass, organolmegaly, rebound Neurological exam: PRESENT: alert, awake, oriented to person, oriented to place, oriented to time, oriented to situation Psychiatric exam: PRESENT: appropriate affect, normal mood Skin exam: PRESENT: dry, intact, warm Results Laboratory Results: 05/24/20 06:01 05/25/20 10:09 05/23/20 05/23/20 05/25/20 11:55 11:55 10:09 Sodium 126.6 L Potassium 3.5 L Chloride 93 L Carbon Dioxide 21 L Anion Gap 13 BUN 20 Creatinine 1.13 Est GFR ( Amer) > 60 Glucose 137 H Calcium 8.8 Fluid Albumin < 0.2 Fluid LDH 29 Impressions: Paracentesis Ultrasound 05/23/20 00:00 IMPRESSION: Successful ultrasound-guided paracentesis. Abdomen/Pelvis CT 05/23/20 03:54 IMPRESSION: Previous seen 5 mm stone along the lower pole of the right kidney has migrated into the right renal pelvis without significant hydronephrosis. Stable appearance of the liver with findings of metastasis. Development of a small left pleural effusion. Large amount of ascites. Diverticulosis without evidence of diverticulitis. Assessment and Plan - Diagnosis (1) Ascites due to alcoholic cirrhosis Is this a current diagnosis for this admission?: Yes (2) Hyponatremia Is this a current diagnosis for this admission?: Yes (3) Portal hypertension Is this a current diagnosis for this admission?: Yes (4) Chronic hypotension Is this a current diagnosis for this admission?: Yes (5) Acute kidney injury Is this a current diagnosis for this admission?: Yes (6) Alcoholic cirrhosis Qualifiers: Ascites presence: with ascites Qualified Code(s): K70.31 - Alcoholic cirrhosis of liver with ascites Is this a current diagnosis for this admission?: Yes - Plan Summary Summary: (1) Ascites due to alcoholic cirrhosis Is this a current diagnosis for this admission?: Yes Plan: Per Previous Physician: "Patient had therapeutic paracentesis with removal of 4.5 L of IV fluid 10 days back INR on the encounter is 1.8 We will consult IR for paracentesis" Paracentesis completed 05/23 and had total 5.5 L removed IV albumin infusion Increased dose of Lasix/Aldactone/midodrine to help with diuresis Consulted GI at [place]: Patient is not a candidate for TIPS and they have no additional recommendations for his current condition Plan is to discharge home on hospice on 05/26 after an additional paracentesis is done, ordered (2) Hyponatremia Is this a current diagnosis for this admission?: Yes Plan: Chronic hyponatremia likely due to volume overload with cirrhosis Trend BMP (3) Portal hypertension Is this a current diagnosis for this admission?: Yes Plan: Ascites analysis consistent with portal hypertension Not a candidate for TIPS procedure per GI at [place] (4) Chronic hypotension Is this a current diagnosis for this admission?: Yes (5) Acute kidney injury Is this a current diagnosis for this admission?: Yes Plan: Per Previous Physician: "Likely hepatorenal Due to patient current state of volume overload will continue Lasix and spironolactone Will give albumin Continue to monitor renal indicis Renally dose medications" Due to volume overload with probable renal hypotension from metabolic derangement of cirrhosis Does not appear to be hepatorenal as he is already improved without aggressive specific treatment for that condition Creatinine trending towards normal (6) Alcoholic cirrhosis Qualifiers: Ascites presence: with ascites Qualified Code(s): K70.31 - Alcoholic cirrhosis of liver with ascites Is this a current diagnosis for this admission?: Yes Plan: Per Previous Physician: "Currently alert oriented x3 and has no asterixis Child Madrid class C with perioperative mortality of 82% and life expectancy of 1 to 3 years Meld score : 32 indicating an estimated 3-month mortality of 52.6% Continue lactulose, Lasix and spironolactone " As above - Time Time Spent with patient: 25-34 minutes Medications reviewed and adjusted accordingly: Yes Anticipated Discharge Disposition: Home with Hospice Anticipated Discharge Timeframe: within 24 hours - Inpatient Certification Based on my medical assessment, after consideration of the patient's comorbidities, presenting symptoms, or acuity I expect that the services needed warrant INPATIENT care.: Yes I certify that my determination is in accordance with my understanding of Medicare's requirements for reasonable and necessary INPATIENT services [42 CFR 412.3e].: Yes Medical Necessity: Significant Comorbidiites Make Outpatient Treatment Too Risky, Need Close Monitoring Due to Risk of Patient Decompensation, Need for Surgery, Risk of Complication if Not Cared For in Hospital, Risk of Diagnosis Which Will Require Inpatient Eval/Care/Monitoring
[2020-05-26] MEDS: PANTOPRAZOLE SODIUM 40 MG TABLET.DR PO SCH (05:40)
[2020-05-26 05:55] LABS: HEMATOCRIT 28.1 % (37.9-51.0); HEMOGLOBIN 9.7 g/dL (13.5-17.0); MEAN CORPUSCULAR HEMOGLOBIN 34.1 pg (27.0-33.4); MEAN CORPUSCULAR HGB CONC 34.5 g/dL (32.0-36.0); MEAN CORPUSCULAR VOLUME 99 fl (80-97); PLATELET COUNT 179 10^3/uL (150-450); RED BLOOD COUNT 2.85 10^6/uL (4.35-5.55); RED CELL DISTRIBUTION WIDTH 15.1 % (11.5-14.0); WHITE BLOOD COUNT 29.8 10^3/uL (4.0-10.5)
[2020-05-26 06:03] LABS: ANION GAP 11 (5-19); BLOOD UREA NITROGEN 20 mg/dL (7-20); CALCIUM 9.1 mg/dL (8.4-10.2); CARBON DIOXIDE 24 mmol/L (22-30); CHLORIDE 93 mmol/L (98-107); GLUCOSE 121 mg/dL (75-110); POTASSIUM 3.5 mmol/L (3.6-5.0)
[2020-05-26 06:14] LABS: ABSOLUTE LYMPHOCYTES# (MANUAL) 1.8 10^3/uL (0.5-4.7); ABSOLUTE MONOCYTES # (MANUAL) 0.9 10^3/uL (0.1-1.4); BASOPHILS % (MANUAL) 0 % (0-2); EOSINOPHILS % (MANUAL) 0 % (0-6); LYMPHOCYTES % (MANUAL) 6 % (13-45); MONOCYTES % (MANUAL) 3 % (3-13); SEGMENTED NEUTROPHILS % (MAN) 91 % (42-78); TOTAL CELLS COUNTED 100
[2020-05-26 06:18] LABS: ANISOCYTOSIS SLIGHT; BURR CELLS SLIGHT; OVALOCYTES SLIGHT; PLATELET COMMENT ADEQUATE; POIKILOCYTOSIS SLIGHT; SCHISTOCYTES SLIGHT; TARGET CELLS SLIGHT
[2020-05-26] MEDS: FOLIC ACID 1 MG TABLET PO SCH (10:15)
[2020-05-26] MEDS: POTASSIUM CHLORIDE 20 MEQ PACKET PO SCH (10:15)
[2020-05-26] MEDS: MIDODRINE HCL 5 MG TABLET PO SCH ×2 (10:15→13:43)
[2020-05-26] MEDS: FUROSEMIDE 40 MG TABLET PO SCH (10:16)
[2020-05-26] MEDS: CEFTRIAXONE 2 GM/D5W RTU 2 GM/50 ML RTUPB IV SCH (10:19)
[2020-05-26] MEDS: NICOTINE 21 MG/24 HR PATCH.TD24 TD SCH (10:19)
[2020-05-26] MEDS: LACTULOSE SYRUP 20 GM/30 ML UDCUP PO SCH (12:48)
[2020-05-26] MEDS: THIAMINE HCL 100 MG TABLET PO SCH (12:48)
[2020-05-26] MEDS: SPIRONOLACTONE 25 MG TABLET PO SCH (12:48)
--- NOTE | 2020-05-26 13:08 | RADIOLOGY REPORT (SQ) ---
EXAM DESCRIPTION: U/S ABD PARACENTESIS IMAGES COMPLETED DATE/TIME: 05/26/2020 11:46 am REASON FOR STUDY: TherapeuticCIRRHOSIS, ASCITES, ABDOMINAL DISTENTION COMPARISON: Paracentesis 05/23/2020 RADIATION DOSE: None LIMITATIONS: None. PROCEDURE: Procedure, risks, benefit, and alternative explained to patient who then gave written con sent. The left lower abdominal wall marked using ultrasound guidance. A time-out was called for cor rect marking verification. Abdomen prepped and draped using sterile technique. Local anesthesia achi eved using 8 ml of 1% lidocaine injection. A 6fr [id number] set was introduced into the periton eal cavity. Fluid was drained. The catheter was removed and entry site was covered with sterile ban dage. No immediate complications noted. Images acquired during the procedure were stored on PACS. FINDINGS: ENTRY SITE: left lower quadrant. FLUID VOLUME: 3050 mL FLUID ANALYSIS: Straw-colored OTHER: Therapeutic only. IMPRESSION: SUCCESSFUL ULTRASOUND GUIDED PARACENTESIS. COMMENT: Patient medication list reviewed:Yes- Quality ID# [id number]:Eligible professional attests to docu menting in the medical record they obtained, updated, or reviewed the patient's current medications. TECHNICAL DOCUMENTATION: JOB ID: [id number] 2010 [employer]- All Rights Reserved Reading location - IP/workstation name: [email or web address] [id number]
[2020-05-26 16:07] VITALS: BP 103/65
[2020-05-27 07:07] LABS: PH BODY FLUID 8.3 (Not Estab.)
--- NOTE | 2020-05-27 20:14 | PDOC DISCHARGE SUMMARY ---
Impression - Admit/DC Date/PCP Admission Date/Primary Care Provider: 05/23/20 06:34 Discharge Date: 05/26/20 - Discharge Diagnosis (1) Alcohol dependence Is this a current diagnosis for this admission?: Yes (2) Alcoholic cirrhosis Is this a current diagnosis for this admission?: Yes (3) Ascites Is this a current diagnosis for this admission?: Yes - Assessment Summary: 1) Ascites due to alcoholic cirrhosis Is this a current diagnosis for this admission?: Yes Plan: Per Previous Physician: "Patient had therapeutic paracentesis with removal of 4.5 L of IV fluid 10 days back INR on the encounter is 1.8 We will consult IR for paracentesis" Paracentesis completed 05/23 and had total 5.5 L removed IV albumin infusion Increased dose of Lasix/Aldactone/midodrine to help with diuresis Consulted GI at [facility]: Patient is not a candidate for TIPS and they have no additional recommendations for his current condition Plan is to discharge home on hospice on 05/26 after an additional paracentesis is done, ordered (2) Hyponatremia Is this a current diagnosis for this admission?: Yes Plan: Chronic hyponatremia likely due to volume overload with cirrhosis Trend BMP (3) Portal hypertension Is this a current diagnosis for this admission?: Yes Plan: Ascites analysis consistent with portal hypertension Not a candidate for TIPS procedure per GI at [facility] (4) Chronic hypotension Is this a current diagnosis for this admission?: Yes (5) Acute kidney injury Is this a current diagnosis for this admission?: Yes Plan: Per Previous Physician: "Likely hepatorenal Due to patient current state of volume overload will continue Lasix and spironolactone Will give albumin Continue to monitor renal indicis Renally dose medications" Due to volume overload with probable renal hypotension from metabolic derangement of cirrhosis Does not appear to be hepatorenal as he is already improved without aggressive specific treatment for that condition Creatinine trending towards normal (6) Alcoholic cirrhosis Qualifiers: Ascites presence: with ascites Qualified Code(s): K70.31 - Alcoholic cirrhosis of liver with ascites Is this a current diagnosis for this admission?: Yes Plan: Per Previous Physician: "Currently alert oriented x3 and has no asterixis Child Madrid class C with perioperative mortality of 82% and life expectancy of 1 to 3 years Meld score : 32 indicating an estimated 3-month mortality of 52.6% Continue lactulose, Lasix and spironolactone " - Additional Information Resuscitation Status: Full Code Discharge Diet: As Tolerated Discharge Activity: Activity As Tolerated Referrals: [facility] [Outside] Prescriptions: Oxycodone HCl [Oxy-Ir 5 mg Tablet] 5 mg PO Q4HP PRN 7 Days #20 tablet PRN Reason: Home Medications: Calcium Carbonate [Tums Chewable 500 mg Tab.chew] 500 mg PO MEALSHS #30 tab.chew 04/29/20 Pantoprazole Sodium [Protonix [address] Tablet] 40 mg PO DAILY #30 tablet.dr 04/29/20 Furosemide [Lasix 40 mg Tablet] 40 mg PO DAILY #30 tablet 05/14/20 Potassium Chloride [Potassium Chloride 20 Meq Packet] 20 meq PO DAILY #30 packet 05/14/20 Spironolactone [Aldactone 25 mg Tablet] 100 mg PO DAILY #30 tablet 05/14/20 Lactulose [Enulose] 10 gm PO DAILY 05/23/20 Nicotine [Nicoderm 21 mg/24 Hr Transderm Patch] 1 each TD DAILY patch.td24 05/26/20 Oxycodone HCl [Oxy-Ir 5 mg Tablet] 5 mg PO Q4HP PRN 7 Days #20 tablet 05/26/20 History of Present Illiness History of Present Illness: NIKI MCCLELLAND is a 55 year old male with a history of alcoholic cirrhosis, liver mass, esophageal varices, tobacco and alcohol dependence, diverticulosis now presents with 2 days duration of abdominal pain and a progressively increasing abdominal and bilateral lower extremity swelling. He describes the pain as generalized but more pronounced in the epigastric area, sharp, 8/10 intensity with no radiation. No aggravating or relieving factors noted. Associated with over the past 2 days he has been having frequent watery diarrhea. Patient reports that he has generalized weakness and chills but denies fever. He denies any nausea, vomiting, melena, hematemesis or hematochezia. Denies shortness of breath, cough, chest pain, dysuria, any skin rash. He reports that his last alcohol use was more than a month ago." Hospital Course Hospital Course: 05/24/2020 Patient underwent paracentesis on the results are partially returned now. So far the cell count is not consistent with SBP. He is continued on ceftriaxone for now while we await the final results. Paracentesis cultures are not back yet. I spoke with the patient today about the possibility of hospice in the n ear future and I believe he will almost certainly end up requiring hospice. His creatinine is improved today which is a good sign considering we were rather concerned about him developing hepatorenal syndrome. We will give him a dose of albumin today. Sodium is a bit lower. I started oxycodone as the patient is in pain due to distended abdomen. I will increase the patient's dose of lactulose/ spironolactone/midodrine in hopes that we can remove some additional fluid using the kidneys and may be delay the time to his next required paracentesis. I discussed with him that he will very likely be readmitted in the future and require future paracentesis as well. Patient states he understood that he is likely nearing the end of his life given that he is not a candidate for liver transplant. 05/25/2020 Patient seems to be doing slightly worse than yesterday. His abdomen has become much more distended in the short time since his previous paracentesis. He is requesting an additional paracentesis. We had a long discussion today about hospice and the patient states he would like to be evaluated for this and set up for hospice. Last night, I have reached out to [facility] to consult GI regarding possible transfer for potential TIPS, however prior discussion GI states patient is not a candidate for TIPS procedure due to very high meld score and they stated it would be extremely risky to perform a TIPS procedure on patient, also noting that he does not meet criteria to have this done inpatient anyway. They had no additional recommendations. I explained all this to the patient he states he understands that he is at the end of his life. He would like to be discharged tomorrow on hospice. He did request having an additional paracentesis prior to discharge and I told him I would set this up. He is now on a higher dose of Lasix and Aldactone although I suspect these will not be effective enough to control his massive ascites that quickly recurs. Physical Exam Vital Signs: Temp Pulse Resp BP Pulse Ox 98.0 F 100 18 105/74 93 05/26/20 15:50 05/26/20 15:50 05/26/20 15:50 05/26/20 15:50 05/26/20 15:50 Intake & Output 05/25/20 05/26/20 05/27/20 06:59 06:59 06:59 Intake Total 835 875 900 Output Total 460 Balance 375 875 900 Weight 73.1 kg 70.5 kg 70.5 kg General appearance: PRESENT: no acute distress, cooperative Head exam: PRESENT: atraumatic, normocephalic Eye exam: PRESENT: EOMI, PERRLA, scleral icterus Ear exam: PRESENT: normal external ear exam Mouth exam: PRESENT: moist Neck exam: PRESENT: full ROM Respiratory exam: PRESENT: clear to auscultation justin, symmetrical, unlabored Cardiovascular exam: PRESENT: RRR, +S1, +S2 GI/Abdominal exam: PRESENT: ascites, distended, normal bowel sounds, soft Extremities exam: PRESENT: full ROM Musculoskeletal exam: PRESENT: full ROM Neurological exam: PRESENT: alert, awake, oriented to person, oriented to place, oriented to time Psychiatric exam: PRESENT: normal mood Skin exam: PRESENT: normal color Results Laboratory Results: WBC 29.8 10^3/uL (4.0-10.5) H 05/26/20 05:07 RBC 2.85 10^6/uL (4.35-5.55) L 05/26/20 05:07 Hgb 9.7 g/dL (13.5-17.0) L 05/26/20 05:07 Hct 28.1 % (37.9-51.0) L 05/26/20 05:07 MCV 99 fl (80-97) H 05/26/20 05:07 MCH 34.1 pg (27.0-33.4) H 05/26/20 05:07 MCHC 34.5 g/dL (32.0-36.0) 05/26/20 05:07 RDW 15.1 % (11.5-14.0) H 05/26/20 05:07 Plt Count 179 10^3/uL (150-450) 05/26/20 05:07 Lymph % (Auto) Not Reportable 05/26/20 05:07 [place] % (Auto) Not Reportable 05/26/20 05:07 Eos % (Auto) Not Reportable 05/26/20 05:07 Baso % (Auto) Not Reportable 05/26/20 05:07 Absolute Neuts (auto) Not Reportable 05/26/20 05:07 Absolute Lymphs (auto) Not Reportable 05/26/20 05:07 Absolute Monos (auto) Not Reportable 05/26/20 05:07 Absolute Eos (auto) Not Reportable 05/26/20 05:07 Absolute Basos (auto) Not Reportable 05/26/20 05:07 Total Counted 100 05/26/20 05:07 Seg Neutrophils % Not Reportable 05/26/20 05:07 Seg Neuts % (Manual) 91 % (42-78) H 05/26/20 05:07 Lymphocytes % (Manual) 6 % (13-45) L 05/26/20 05:07 Monocytes % (Manual) 3 % (3-13) 05/26/20 05:07 Eosinophils % (Manual) 0 % (0-6) 05/26/20 05:07 Basophils % (Manual) 0 % (0-2) 05/26/20 05:07 Abs Neuts (Manual) 27.1 10^3/uL (1.7-8.2) H 05/26/20 05:07 Abs Lymphs (Manual) 1.8 10^3/uL (0.5-4.7) 05/26/20 05:07 Abs Monocytes (Manual) 0.9 10^3/uL (0.1-1.4) 05/26/20 05:07 Absolute Eos (Manual) 0.0 10^3/uL (0.0-0.6) 05/26/20 05:07 Abs Basophils (Manual) 0.0 10^3/uL (0.0-0.2) 05/26/20 05:07 Toxic Granulation SLIGHT 05/24/20 06:01 Platelet Estimate Cancelled 05/23/20 00:57 Clumped Platelets PRESENT 05/23/20 02:50 Platelet Comment ADEQUATE 05/26/20 05:07 Poikilocytosis SLIGHT 05/26/20 05:07 Anisocytosis SLIGHT 05/26/20 05:07 Macrocytosis 1+ 05/24/20 06:01 Target Cells SLIGHT 05/26/20 05:07 Ovalocytes SLIGHT 05/26/20 05:07 [place] Bodies PRESENT 05/24/20 06:01 [place] Cells SLIGHT 05/26/20 05:07 Schistocytes SLIGHT 05/26/20 05:07 PT 21.1 SEC (11.4-15.4) H 05/23/20 00:57 INR 1.81 05/23/20 00:57 APTT 52.6 SEC (23.5-35.8) H 05/23/20 00:57 Sodium 128.2 mmol/L (137-145) L 05/26/20 05:07 Potassium 3.5 mmol/L (3.6-5.0) L 05/26/20 05:07 Chloride 93 mmol/L (98-107) L 05/26/20 05:07 Carbon Dioxide 24 mmol/L (22-30) 05/26/20 05:07 Anion Gap 11 (5-19) 05/26/20 05:07 BUN 20 mg/dL (7-20) 05/26/20 05:07 Creatinine 1.11 mg/dL (0.52-1.25) 05/26/20 05:07 Est GFR ( Amer) > 60 (>60) 05/26/20 05:07 Est GFR (MDRD) Non-Af > 60 (>60) 05/26/20 05:07 Glucose 121 mg/dL (75-110) H 05/26/20 05:07 Lactic Acid 3.5 mmol/L (0.7-2.1) H 05/23/20 08:50 Calcium 9.1 mg/dL (8.4-10.2) 05/26/20 05:07 Magnesium 1.8 mg/dL (1.6-2.3) 05/23/20 00:57 Total Bilirubin 15.9 mg/dL (0.2-1.3) H 05/24/20 06:01 Direct Bilirubin 14.0 mg/dL (0.0-0.4) H 05/24/20 06:01 Neonat Total Bilirubin Not Reportable 05/24/20 06:01 Neonat Direct Bilirubin Not Reportable 05/24/20 06:01 Neonat Indirect Bili Not Reportable 05/24/20 06:01 AST 85 U/L (17-59) H 05/24/20 06:01 ALT 21 U/L (<50) 05/24/20 06:01 Alkaline Phosphatase 220 U/L (38-126) H 05/24/20 06:01 Ammonia 29.4 umol/L (9-33) 05/23/20 00:57 Lactate Dehydrogenase 219 U/L (120-246) 05/23/20 08:50 Total Protein 5.9 g/dL (6.3-8.2) L 05/24/20 06:01 Albumin 2.2 g/dL (3.5-5.0) L 05/24/20 06:01 Lipase < 10.0 U/L (23-300) L 05/23/20 00:57 Fluid Type PERITONEAL 05/23/20 11:55 Fluid Source ASCITES 05/23/20 11:55 Fluid Color YELLOW 05/23/20 11:55 Fluid Appearance CLEAR 05/23/20 11:55 Fluid Viscosity LIQUID 05/23/20 11:55 Fluid WBC 116 /uL 05/23/20 11:55 Fluid RBC 8 /uL 05/23/20 11:55 Fluid Seg Neutrophils 41 % 05/23/20 11:55 Fluid Lymphocytes 21 % 05/23/20 11:55 Fluid Monocytes 38 % 05/23/20 11:55 Fluid Eosinophils 0 % 05/23/20 11:55 Fluid Basophils 0 % 05/23/20 11:55 Fluid Albumin < 0.2 g/dL (Not Estab.) 05/23/20 11:55 Fluid LDH 29 IU/L (.) 05/23/20 11:55 Slides for Path Review PATHOLOGIST REVIEWED 05/23/20 11:55 Impressions: Paracentesis Ultrasound 05/23/20 00:00 IMPRESSION: Successful ultrasound-guided paracentesis. Abdomen/Pelvis CT 05/23/20 03:54 IMPRESSION: Previous seen 5 mm stone along the lower pole of the right kidney has migrated into the right renal pelvis without significant hydronephrosis. Stable appearance of the liver with findings of metastasis. Development of a small left pleural effusion. Large amount of ascites. Diverticulosis without evidence of diverticulitis. Paracentesis Ultrasound 05/26/20 00:00 IMPRESSION: SUCCESSFUL ULTRASOUND GUIDED PARACENTESIS. Plan Health Concerns: Home with hospice Plan of Treatment: Home with hospice Time Spent: Less than 30 Minutes Stroke Is this a Stroke Patient?: No Acute Heart Failure Is this a Heart Failure Patient?: No
== END 2020-05-26 16:37 | disposition hospice, home (50) | DRG 432 ==
LOC: ER 22:43 → OBSVTOIN 05-23 06:34 → EH 05-23 06:34 → 4N 05-23 07:59
PROVIDERS: ADMIT Student in an Organized Health Care Education/Training Program; ATTEND Internal Medicine
PROC: 0W9G3ZZ Drainage of Peritoneal Cavity, Percutaneous Approach (ICD-10-PCS; 2020-05-23)
PROC: 0W9G3ZZ Drainage of Peritoneal Cavity, Percutaneous Approach (ICD-10-PCS; principal; 2020-05-26)
DX: K70.31 Alcoholic cirrhosis of liver with ascites (principal); K65.2 Spontaneous bacterial peritonitis; E87.1 Hypo-osmolality and hyponatremia; K76.6 Portal hypertension; N17.9 Acute kidney failure, unspecified; I85.00 Esophageal varices without bleeding; D68.9 Coagulation defect, unspecified; F10.20 Alcohol dependence, uncomplicated; I95.89 Other hypotension; R16.0 Hepatomegaly, not elsewhere classified; K57.30 Diverticulosis of large intestine without perforation or abscess without bleeding; D72.828 Other elevated white blood cell count; Z79.899 Other long term (current) drug therapy
CPT/HCPCS: 36415; 49083; 74177; 76705; 80048; 80053; 82040; 82042; 82140; 83605; 83615; 83690; 83735; 83986; 85025; 85610; 85730; 87015; 87040; 87070; 87075; 87101; 87116; 87205; 87206; 89050; 93976; 96365; 96375; 99285; G0378; J0696; J3010; J3490; P9047